=== PATIENT | female | born 1935 | race Caucasian/White ===

== ENCOUNTER 2017-06-06 22:17 | Inpatient (IN) | payer MEDICARE, MEDICAID, SELFPAY ==
[2017-06-06 22:17] VITALS: BP 152/90; PULSE 93; RESP 30; TEMP 37.3; O2SAT 92; BMI 33.6
--- NOTE | 2017-06-06 22:27 | XR_ITS ---
XR chest portable HISTORY: ITS.REASON: SOA ORDERING PHYSICIAN: Pedro Noland MD PATIENT AGE: 82 years COMPARISON: 11/07/2015 FINDINGS: There is mild cardiomegaly without failure. Increased markings are present in the right lower lobe consistent with pneumonia. There are chronic changes in the left lung base. No acute bony anomalies. IMPRESSION: Cardiomegaly with right lower lobe pneumonia
[2017-06-06 22:35] VITALS: BP 146/66; PULSE 85; RESP 24; O2SAT 94
--- NOTE | 2017-06-06 22:36 | HMH.EDCP ---
ED Disposition Clinical Impression: HCAP (healthcare-associated pneumonia), LBBB (left bundle branch block) Anemia Qualifiers: Anemia type: unspecified type Qualified Code(s): D64.9 - Anemia, unspecified Disposition: Admitted As Inpatient Condition on Discharge: Good Referrals: Provider,Referral, [Primary Care Provider] - - Critical Care Critical Care Time: No Attestation: On 06/06/17, the high probability of a clinically significant, sudden or life threatening deterioration of the following system(s) required my full and direct attention, intervention and personal management. The time I documented below is in addition to time spent performing reported procedures but includes the following listed in this critical care notation. Medical Decision Making - Medical Records Medical records reviewed: Yes: I reviewed the patient's medical records. Vital Signs: 06/06/17 22:17 06/06/17 22:35 06/06/17 23:35 Temperature 99.2 F 100.5 F H Temperature Source Oral Rectal Pulse Rate [Right Brachial] 93 H 85 Respiratory Rate 30 H 24 Blood Pressure [Right Arm] 152/90 146/66 Blood Pressure Mean [Right Arm] 110 92 Blood Pressure Source [Right Arm] Automatic Cuff 02 Sat by Pulse Oximetry 92 L 94 L Oxygen Delivery Method Nasal Cannula Nasal Cannula Oxygen Flow Rate (LPM) 3 3 - Lab Data Lab results reviewed: Yes: I reviewed the patient's lab results. Lab Results 06/06/17 22:30: WBC 17.9 H, RBC 2.82 L, Hgb 7.3 L*, Hct 22.6 L*, MCV 80.2 L, MCH 25.7 L, MCHC 32.0, RDW 15.1, Plt Count 274, MPV 9.5, Neut % (Auto) 84.8 H, Lymph % (Auto) 7.9 L, [place] % (Auto) 6.0, Eos % (Auto) 0.9, Baso % (Auto) 0.4, Neut # (Auto) 15.2 H, Lymph # (Auto) 1.4, [place] # (Auto) 1.1 H, Eos # (Auto) 0.2, Baso # (Auto) 0.1 06/06/17 22:30: Sodium 125 L, Potassium 4.2, Chloride 92 L, Carbon Dioxide 21, Anion Gap 16.2 H, BUN 18, Creatinine 0.99, Estimated Creat Clear 57, Estimated GFR 54 L, Est GFR ( Amer) 65, Glucose 187 H, Calcium 8.0 L, Total Bilirubin 0.4, AST 16, ALT 16, Alkaline Phosphatase 49, Troponin I 0.05, Total Protein 6.4, Albumin 3.0 L, Globulin 3.4 H, Albumin/Globulin Ratio 0.9 L 06/06/17 22:30: Lactic Acid 2.3 H 06/06/17 22:32: Influenza Type A Ag Negative, Influenza Type B Ag Negative Result diagrams: 06/06/17 22:30 06/06/17 22:30 Orders (Tests/Meds): ED MEDICATIONS Generic Name Dose Route Start Last Admin Trade Name Freq PRN Reason Stop Dose Admin Sodium Chloride 250 mls @ 25 mls/hr 06/06/17 23:45 Sod Chloride 0.9% 250ml Bag IV 07/06/17 23:44 .Q10H GRACIE Discontinued Medications Generic Name Dose Route Start Last Admin Trade Name Freq PRN Reason Stop Dose Admin Acetaminophen 650 mg 06/06/17 23:56 Acetaminophen 325mg Tab PO 06/06/17 23:57 ONCE ONE ORDERS Category Date Time Status Packed Red Cells [Red Blood Cells] Stat BBK 06/06/17 23:43 Ordered Type and Screen Stat BBK 06/06/17 23:43 Ordered XR chest portable Stat Exams 06/06/17 22:27 Taken Complete Blood Count Auto Diff Stat Lab 06/06/17 22:30 Results Ferritin Stat Lab 06/06/17 23:53 Ordered Folate Stat Lab 06/06/17 23:52 Ordered Hemoglobin and Hematocrit Routine Lab 06/07/17 03:44 Ordered Iron and TIBC Stat Lab 06/06/17 23:52 Ordered UA [Urinalysis and Microscopic] Stat Lab 06/06/17 22:27 Ordered Vitamin B12 Stat Lab 06/06/17 23:52 Ordered Blood Culture Stat Micro 06/06/17 22:30 Received EKG Request [ECG Request by /Heriberto] Stat Y 06/06/17 22:57 Ordered - Radiology Data #1 Image(s): Chest Image Reviewed: Yes I reviewed the patient's radiology image Preliminary Findings: Abnormal (rt lower lobe changes ) - ECG Data Tracing #1 I reviewed this ECG and interpreted as documented below: Arrhythmias present: sinus tach Conduction abnormalities present: LBBB - Physician Consults Physician Consulted: gt Reason -: Admission - Christian Inquiry Pt receiving controlled substa
[2017-06-06 22:53] LABS: Basophils # 0.1 K/mm3 (0-0.2); Basophils % 0.4 % (0.1-2.0); Eosinophils # 0.2 K/mm3 (0.0-0.4); Eosinophils % 0.9 % (0.1-12.0); Lymphocytes # 1.4 K/mm3 (0.7-4.5); Lymphocytes % 7.9 K/mm3 (10-50); Mean Corpuscular Hemoglobin 25.7 pg (27.0-31.2); Mean Corpuscular Volume 80.2 fl (81-99); Mean Platelet Volume 9.5 fl (7.4-10.4); Monocytes # 1.1 K/mm3 (0.1-1.0); Neutrophils # 15.2 K/mm3 (1.8-7.8); Neutrophils % 84.8 % (37.0-80.0); Platelet Count 274 K/mm3 (142-424); Red Blood Count 2.82 M/mm3 (4.20-5.40); Red Cell Distribution Width 15.1 % (11.5-17.5); White Blood Count 17.9 K/mm3 (4.8-10.8)
[2017-06-06 22:59] LABS: Hematocrit 22.6 % (37.0-47.0); Hemoglobin 7.3 g/dL (12.2-16.2)
--- NOTE | 2017-06-06 22:59 | PC.NURSE ---
CRITICAL LAB HGB 7.3 AND HCT 22.[address] GIBBONS
[2017-06-06 23:00] LABS: MANUAL DIFFERENTIAL MANUAL DIFFERENTIAL (MANUAL DIFF)
[2017-06-06 23:08] LABS: Alanine Aminotransferase 16 U/L (12-78); Albumin/Globulin Ratio 0.9 (1.1-1.8); Alkaline Phosphatase 49 U/L (46-116); Anion Gap 16.2 mEq/L (5-15); Aspartate Amino Transferase 16 U/L (15-37); Bilirubin,Total 0.4 mg/dL (0.2-1.0); Blood Urea Nitrogen 18 mg/dL (7-18); Carbon Dioxide 21 mmol/L (21.0-32.0); Chloride 92 mmol/L (98-107); Creatinine Clearance Estimated 57 mL/min (0-300); Creatinine,Serum 0.99 mg/dL (0.55-1.02); Estimated Glomerular Filt Rate 54 ml/min (>60); GFR (African American) 65 ML/MIN (>60); Globulin 3.4 gm/dl (1.3-3.2); Glucose 187 mg/dL (74-106); Potassium 4.2 mmoL/L (3.5-5.1); Sodium 125 mmol/L (136-145); Total Protein,Serum 6.4 gm/dL (6.4-8.2); Troponin I 0.05 ng/ml (0.00-0.06)
[2017-06-06 23:35] VITALS: TEMP 38.1
[2017-06-06 23:45] LABS: Lactic Acid 2.3 mmol/L (0.4-2.0); Reflex Lactic Add Lactic Reflex
[2017-06-07] VITALS (29 sets, daily range): BP systolic 101–159; BP diastolic 41–68; PULSE 57–76; RESP 18–22; TEMP 36.5–37.7; O2SAT 92–99; BMI 33.3; BMI 33.5
--- NOTE | 2017-06-07 00:06 | PC.NURSE ---
DR GIBBONS SPEAKING WITH PHARMACY
[2017-06-07 00:58] LABS: Ferritin 13 ng/mL (8-388)
[2017-06-07 03:35] LABS: Lactic Acid Follow Up (RFLX 1) 2.9 (0.4-2.0)
[2017-06-07 04:38] LABS: Reflex Lactic (2 hrs) Add Lactic Reflex
--- NOTE | 2017-06-07 05:08 | PC.NURSE ---
PT NEW ADMIT TONIGHT. PT ON 3L PER NC OF OXYGEN. NO RESPIRATORY DISTRESS NOTED. PT PALE IN COLOR. CURRENTLY RECEIVING 1ST UNIT OF PACKED RED BLOOD CELLS. TOLERATING BLOOD TRANSFUSION WELL. PT OLD CVA WITH FLACCID LEFT SIDE NOTED. PT WITH NONPRODUCTIVE COUGH.
[2017-06-07 05:27] LABS: Anisocytosis 1+; Eosinophils % 1 % (0-3); Hypochromasia 1+; Lymphocytes % 6 % (10-50); Neutrophils % 93 % (42-76); Platelet Estimate Normal; Poikilocytosis 1+; Total Cells Counted 100
[2017-06-07 05:40] LABS: Lactic Acid Follow up (RFLX 2) 2.3 (0.4-2.0)
--- NOTE | 2017-06-07 06:19 | PC.NURSE ---
1ST UNIT OF PRBCS WITNESS BY TANVI COX RN. UNIT COMPLETED AT 0600. PT TOLERATED WELL.
--- NOTE | 2017-06-07 07:33 | P.CONPHA_ITS ---
[facility] Pharmacy VTE Monitoring - Patient Demographics Admission date: 06/06/17 Report Date: 06/07/17 Time: 07:33 Allergies/Adverse Reactions: lisinopril [LISINOPRIL] Allergy (Mild, Verified 06/06/17 22:26) procaine [PROCAINE] Allergy (Mild, Verified 06/06/17 22:26) Penicillins [PENICILLINS] Allergy (Unknown, Verified 06/06/17 22:26) Height: 1.57 m Weight: 82.752 kg Patient Problems: Current Active Problems HCAP (healthcare-associated pneumonia) (Acute) LBBB (left bundle branch block) (Acute) Anemia (Acute) - VTE Risk Labs: VTE Related Lab Results Hgb 7.3 g/dL (12.2-16.2) L* 06/06/17 22:30 Hct 22.6 % (37.0-47.0) L* 06/06/17 22:30 Plt Count 274 K/mm3 (142-424) 06/06/17 22:30 BUN 18 mg/dL (7-18) 06/06/17 22:30 Creatinine 0.99 mg/dL (0.55-1.02) 06/06/17 22:30 Estimated Creat Clear 57 mL/min (0-300) 06/06/17 22:30 Was VTE Risk Assessment Performed: Yes VTE Score: 6 VTE Risk Level: Moderate Risk Clinical Trial Participant: No - Prophylaxis VTE Prophylaxis Ordered?: Yes Types of VTE Prophylaxis: TEDS Knee High Location of Applied Device: Bilateral Lower Extremeties
--- NOTE | 2017-06-07 08:28 | PC.NURSE ---
0825 - Blood infusion completed. IV NS @ 50ml/hr resumed post infusion via (L) hand IV site. No s/s of infection/infiltration @ insertion site.
--- NOTE | 2017-06-07 08:44 | HMH.HP ---
*Admission Date: 06/06/17 <Luz Pham 06/07/17 09:26> *Chief complaint: SOB <Luz Pham 06/07/17 09:26> *History of present illness: Ms Helms is an 82 year old female resident of [facility] with a history of stroke with left hemiplegia, HTN, OA, CAD, Atrial fib, hypothyroidism, aortic stenosis, hyponatremia, neurogenic bladder pseudoaneurysm, and renal insufficiency who presented to the ER with a 5 day history of a worsening cough and SOB. She describes not being able to eat as well. With evaluation in the ER she was found to have pneumonia and low H&H. She is now receiving PRBC's.She states she is feeling better; She denies SOB. <Luz Pham 06/07/17 09:26> [facility] History - *Social History Alcohol Intake: never <Luz Pham 06/07/17 09:26> - Psychiatric History Expresses thoughts of harming self/others: None <Luz Pham 06/07/17 09:26> Suicide Plan Description: No Plan <Luz Pham 06/07/17 09:26> Review of Systems - Constitutional Reports body ache(s), Reports weakness, Denies headache(s) <Luz Pham 06/07/17 09:26> - ENT Denies ear pain, Denies sore throat <Luz Pham 06/07/17 09:26> - *Cardiovascular Reports shortness of breath, Denies chest pain, Denies leg swelling <Luz hPam 06/07/17 09:26> - *Respiratory Reports chest congestion, Reports cough, Reports shortness of breath <Luz Pham 06/07/17 09:26> - *Gastrointestinal Reports constipation, Denies abdominal pain <Luz Pham 06/07/17 09:26> - *Genitourinary Reports urinary incontinence <Luz Pham 06/07/17 09:26> - *Musculoskeletal Reports muscle weakness <Luz Pham 06/07/17 09:26> Comments: does not walk; gets [facility] in a [facility] <Luz Pham 06/07/17 09:26> - *Neurologic Reports weakness, Denies seizure-like activity <Luz Pham - 06/07/17 09:26> Meds Home Medications Medication Instructions Recorded Confirmed Type Acetaminophen [Acetaminophen Extra 500 mg PO Q4HP PRN 06/07/17 06/07/17 History Strength] Aspirin [Aspirin 81mg chewable 81 mg PO DAILY 06/07/17 06/07/17 History tab] Buspirone HCl [Buspar 10mg tablet] 15 mg PO TID 06/07/17 06/07/17 History Docusate Sodium [Colace 250mg 250 mg PO DAILY 06/07/17 06/07/17 History capsule] Escitalopram Oxalate [Lexapro] 20 mg PO HS 06/07/17 06/07/17 History Fenofibrate Nanocrystallized 48 mg PO DAILY 06/07/17 06/07/17 History [Tricor] Hydrocod/Acet 5/325 mg [[place] 5 mg PO HS 06/07/17 06/07/17 History 5/325mg tablet] Ipratropium/Albuterol Sulfate 3 ml IH TIDP PRN 06/07/17 06/07/17 History [Albut-Ipratropium 2.5mg-0.5mg/3 ml] Levothyroxine Sodium [Synthroid 50 mg PO DAILY 06/07/17 06/07/17 History 50mcg (0.05mg) tab] Loperamide HCl [Imodium 2 mg 2 mg PO Q3HP PRN 06/07/17 06/07/17 History capsule] Loratadine [Claritin 10mg Tablet] 10 mg PO DAILY 06/07/17 06/07/17 History Metoprolol Tartrate [Lopressor 25 mg PO BID 06/07/17 06/07/17 History 25mg tablet] Montelukast Sodium [Singulair 10mg 10 mg PO PM 06/07/17 06/07/17 History tablet] Multivitamin [One Daily] 1 each PO DAILY 06/07/17 06/07/17 History Nitroglycerin [Nitrostat 0.4mg SL 0.4 mg SL Q5MINP PRN 06/07/17 06/07/17 History Tablet] Oxybutynin Chloride [Oxybutynin 5 mg PO DAILY 06/07/17 06/07/17 History Chloride ER] Polyethylene Glycol 3350 [Miralax 17 gm PO HS 06/07/17 06/07/17 History 17gm Packet] Pravastatin Sodium [Pravachol 20mg 20 mg PO DAILY 06/07/17 06/07/17 History Tablet] Promethazine HCl [Phenergan 25mg 25 mg PO Q4HP PRN 06/07/17 06/07/17 History tab] Rivaroxaban [Xarelto] 20 mg PO DAILY 06/07/17 06/07/17 History Simethicone [Gas-X] 125 mg PO QIDP PRN 06/07/17 06/07/17 History Tamsulosin HCl [Flomax] 0.4 mg PO DAILY 06/07/17 06/07/17 History guaiFENesin [Robitussin 200mg/10mL 200 mg PO Q4HP PRN 06/07/17 06/07/17 History Syru
--- NOTE | 2017-06-07 08:48 | P.HP_ITS ---
*Admission Date: 06/06/17 <Luz Pham 06/07/17 09:26> *Chief complaint: SOB <Luz Pham 06/07/17 09:26> *History of present illness: Ms Helms is an 82 year old female resident of [facility] with a history of stroke with left hemiplegia, HTN, OA, CAD, Atrial fib, hypothyroidism , aortic stenosis, hyponatremia, neurogenic bladder pseudoaneurysm, and renal insufficiency who presented to the ER with a 5 day history of a worsening cough and SOB. She describes not being able to eat as well. With evaluation in the ER she was found to have pneumonia and low H&H. She is now receiving PRBC's.She states she is feeling better; She denies SOB. <Luz Pham 06/07/17 09:26> [facility] History - *Social History Alcohol Intake: never <Luz Pham 06/07/17 09:26> - Psychiatric History Expresses thoughts of harming self/others: None <Luz Pham 06/07/17 09: 26> Suicide Plan Description: No Plan <Luz Pham 06/07/17 09:26> Review of Systems - Constitutional Reports body ache(s), Reports weakness, Denies headache(s) <Luz Pham 09:26> - ENT Denies ear pain, Denies sore throat <Luz Pham 06/07/17 09:26> - *Cardiovascular Reports shortness of breath, Denies chest pain, Denies leg swelling <Luz Pham 06/07/17 09:26> - *Respiratory Reports chest congestion, Reports cough, Reports shortness of breath <Luz Pham 06/07/17 09:26> - *Gastrointestinal Reports constipation, Denies abdominal pain <Luz Pham 06/07/17 09:26> - *Genitourinary Reports urinary incontinence <Luz Pham 06/07/17 09:26> - *Musculoskeletal Reports muscle weakness <Luz Pham 06/07/17 09:26> Comments: does not walk; gets up in a wheelchair on some days at the [facility] <Luz Pham 06/07/17 09:26> - *Neurologic Reports weakness, Denies seizure-like activity <Luz Pham - 06/07/17 09:26 > Meds Home Medications Medication Instructions Recorded Confirmed Type Acetaminophen [Acetaminophen Extra 500 mg PO Q4HP PRN 06/07/17 06/07/17 History Strength] Aspirin [Aspirin 81mg chewable 81 mg PO DAILY 06/07/17 06/07/17 History tab] Buspirone HCl [Buspar 10mg tablet] 15 mg PO TID 06/07/17 06/07/17 History Docusate Sodium [Colace 250mg 250 mg PO DAILY 06/07/17 06/07/17 History capsule] Escitalopram Oxalate [Lexapro] 20 mg PO HS 06/07/17 06/07/17 History Fenofibrate Nanocrystallized 48 mg PO DAILY 06/07/17 06/07/17 History [Tricor] Hydrocod/Acet 5/325 mg [[place] 5 mg PO HS 06/07/17 06/07/17 History 5/325mg tablet] Ipratropium/Albuterol Sulfate 3 ml IH TIDP PRN 06/07/17 06/07/17 History [Albut-Ipratropium 2.5mg-0.5mg/3 ml] Levothyroxine Sodium [Synthroid 50 mg PO DAILY 06/07/17 06/07/17 History 50mcg (0.05mg) tab] Loperamide HCl [Imodium 2 mg 2 mg PO Q3HP PRN 06/07/17 06/07/17 History capsule] Loratadine [Claritin 10mg Tablet] 10 mg PO DAILY 06/07/17 06/07/17 History Metoprolol Tartrate [Lopressor 25 mg PO BID 06/07/17 06/07/17 History 25mg tablet] Montelukast Sodium [Singulair 10mg 10 mg PO PM 06/07/17 06/07/17 History tablet] Multivitamin [One Daily] 1 each PO DAILY 06/07/17 06/07/17 History Nitroglycerin [Nitrostat 0.4mg SL 0.4 mg SL Q5MINP PRN 06/07/17 06/07/17 History Tablet] Oxybutynin Chloride [Oxybutynin 5 mg PO DAILY 06/07/17 06/07/17 History Chloride ER]
[2017-06-07 10:01] LABS: Hematocrit 26.3 % (37.0-47.0)
[2017-06-07 10:09] LABS: Hemoglobin 8.6 g/dL (12.2-16.2)
--- NOTE | 2017-06-07 11:15 | SW/DCPLANNER ---
Spoke with Analia from [facility] and she has stated that this patient is [facility] level of care and they will accept her back once ready for discharge.
[2017-06-07 11:20] LABS: Thyroid Stimulating Hormone 2.29 uIU/ml (0.358-3.740)
--- NOTE | 2017-06-07 14:45 | PC.NURSE ---
Interdisciplinary team meeting with case management, dietary, nursing, and infection control. Discussed plan of care and discharge plans.
[2017-06-07 15:35] LABS: Occult Blood,Stool Positive (Negative)
--- NOTE | 2017-06-07 15:36 | PC.NURSE ---
1500 - Pt returned to room 209 via bed accompanied by OR staff.
[2017-06-08] VITALS (10 sets, daily range): BP systolic 142–181; BP diastolic 61–79; PULSE 69–75; RESP 20–24; TEMP 36.6–37.2; O2SAT 94–99
--- NOTE | 2017-06-08 03:27 | PC.NURSE ---
PATIENT RESTING QUIETLY MOST OF SHIFT. NO C/O PAIN OR DISCOMFORT, NO S/S OF DISTRESS NOTED. SCATTERED WHEEZES THROUGHOUT LUNG BILATERALLY. IV DRESSING CHANGED AND SECURE. KERLEX PLACED IN PALM OF HAND AND WRAPPED WITH KOBAN DUE TO LEFT EXTERMITY BEING FLACCID AND IV PROTRUDING PAST KNUCKLES. PATIENT HAS REMAINED AFEBRILE WITH O2 SATS IN MID 90S. NO ACUTE CHANGES. PLEASANT AFFECT. VITAL SIGNS STABLE, WILL CONTINUE TO MONITOR.
--- NOTE | 2017-06-08 07:20 | PC.NURSE ---
Received report from Sarah Hoang RN
[2017-06-08 07:22] LABS: Basophils % 0.2 % (0.1-2.0); Eosinophils # 0.1 K/mm3 (0.0-0.4); Eosinophils % 0.6 % (0.1-12.0); Lymphocytes % 11.3 K/mm3 (10-50); Mean Corpuscular HGB Conc 32.5 g/dL (31.8-35.4); Mean Corpuscular Hemoglobin 26.4 pg (27.0-31.2); Mean Corpuscular Volume 81.3 fl (81-99); Mean Platelet Volume 9.3 fl (7.4-10.4); Monocytes # 0.7 K/mm3 (0.1-1.0); Monocytes % 7.6 % (1.7-9.3); Neutrophils # 7.1 K/mm3 (1.8-7.8); Neutrophils % 80.2 % (37.0-80.0); Platelet Count 180 K/mm3 (142-424); Red Blood Count 2.92 M/mm3 (4.20-5.40); Red Cell Distribution Width 14.9 % (11.5-17.5); White Blood Count 8.9 K/mm3 (4.8-10.8)
[2017-06-08 07:27] LABS: Anion Gap 10.7 mEq/L (5-15); Blood Urea Nitrogen 15 mg/dL (7-18); Carbon Dioxide 23 mmol/L (21.0-32.0); Chloride 100 mmol/L (98-107); Creatinine Clearance Estimated 57 mL/min (0-300); Creatinine,Serum 0.88 mg/dL (0.55-1.02); Estimated Glomerular Filt Rate 62 ml/min (>60); GFR (African American) 74 ML/MIN (>60); Glucose 89 mg/dL (74-106); Potassium 4.7 mmoL/L (3.5-5.1); Sodium 129 mmol/L (136-145)
[2017-06-08 07:35] LABS: Hemoglobin 7.7 g/dL (12.2-16.2)
[2017-06-08 07:36] LABS: Hematocrit 23.8 % (37.0-47.0)
--- NOTE | 2017-06-08 07:52 | PC.NURSE ---
0750: Received critical Hgb results from lab. Notified Dr Felipe in person (Hgb 7.7 / Hct 23.8) Positive occult blood result from 06/07/16.
[2017-06-08 08:24] LABS: Iron 30 ug/dL (27-139); UIBC 349 ug/dL (118-369)
--- NOTE | 2017-06-08 10:21 | HMH.ACPN ---
Internal Medicine - PN: Subj *Date: 06/08/17 *Time: 18:31 Interval history: Pt states she is feeling slightly better today. Denies any pain. States she was able to sleep and eat. SOA is still present and she is still coughing. Exam Vital signs and Labs for Last 24 Hours: Temp Pulse Resp BP Pulse Ox 97.9 F 70 20 168/70 98 06/08/17 08:00 06/08/17 09:41 06/08/17 08:00 06/08/17 08:00 06/08/17 08:00 Laboratory Results - last 24 hr 06/07/17 09:45: Blood Type Confirm B Positive 06/07/17 14:47: Stool Occult Blood Positive A 06/07/17 : TSH 2.29 06/08/17 06:20: WBC 8.9 D, RBC 2.92 L, Hgb 7.7 L*, Hct 23.8 L*, MCV 81.3, MCH 26.4 L, MCHC 32.5, RDW 14.9, Plt Count 180 D, MPV 9.3, Neut % (Auto) 80.2 H, Lymph % (Auto) 11.3, [place] % (Auto) 7.6, Eos % (Auto) 0.6, Baso % (Auto) 0.2, Neut # (Auto) 7.1, Lymph # (Auto) 1.0, [place] # (Auto) 0.7, Eos # (Auto) 0.1, Baso # (Auto) 0.0 06/08/17 06:20: Sodium 129 L, Potassium 4.7, Chloride 100, Carbon Dioxide 23, Anion Gap 10.7, BUN 15, Creatinine 0.88, Estimated Creat Clear 57, Estimated GFR 62, Est GFR ( Amer) 74, Glucose 89 I & O for Last 24 hours: Intake & Output 06/05/17 06/06/17 06/07/17 06/08/17 11:59 11:59 11:59 11:59 Intake Total 743 / 743 6917 / 3977 Balance 743 / 743 7647 / 2310 - Constitutional no acute distress - *Routine Respiratory Exam Present: rhonchi (bilaterally, worse on the right) - *Routine Cardiovascular Exam Present: RRR - *Routine Abdominal Exam Present: soft, normoactive bowel sounds. Absent: tenderness - *Routine Extremities Exam Absent: edema Assessment and Plan (1) HCAP (healthcare-associated pneumonia) Current visit: Yes Status: Acute Category: Medical Code(s): J18.9 - Pneumonia, unspecified organism (2) History of CVA with residual deficit Current visit: Yes Status: Acute Category: Medical Code(s): I69.30 - Unspecified sequelae of cerebral infarction (3) Hyponatremia Current visit: Yes Status: Acute Category: Medical Code(s): E87.1 - Hypo-osmolality and hyponatremia (4) LBBB (left bundle branch block) Current visit: Yes Status: Acute Category: Medical Code(s): I44.7 - Left bundle-branch block, unspecified (5) Microcytic anemia Current visit: Yes Status: Acute Category: Medical Code(s): D50.9 - Iron deficiency anemia, unspecified (6) A-fib Current visit: Yes Status: Chronic Category: Medical Code(s): I48.91 - Unspecified atrial fibrillation (7) CAD (coronary artery disease) Current visit: Yes Status: Chronic Category: Medical Code(s): I25.10 - Atherosclerotic heart disease of [place] coronary artery without angina pectoris (8) HTN (hypertension) Current visit: Yes Status: Chronic Category: Medical Code(s): I10 - Essential (primary) hypertension (9) Hypothyroidism Current visit: Yes Status: Chronic Category: Medical Code(s): E03.9 - Hypothyroidism, unspecified (10) Osteoarthritis Current visit: Yes Status: Chronic Category: Medical Code(s): M19.90 - Unspecified osteoarthritis, unspecified site (11) Renal insufficiency Current visit: Yes Status: Chronic Category: Medical Code(s): N28.9 - Disorder of kidney and ureter, unspecified (12) Blood in stool Current visit: Yes Status: Acute Category: Medical Code(s): K92.1 - Melena - Assessment and plan all Dx Assessment and Plan for all problems:: Will continue abx for pneumonia. Patient's H&H has decreased again and her stool is positive for blood. Will discuss with Dr. Felipe. Will likely need a surgical consult and more blood. Patient seen and examined. SHe looks better. She is hemodynamically stable so will hold on additional blood tx for now. She denies hx of PUD or hernias. She has never had a colonoscopy and states she does not want one. Will get surgical consult for tomorrow and make NPO after MN for possible EGD. Start Protonix. Follow H&H.
--- NOTE | 2017-06-08 10:25 | P.PN_ITS ---
Internal Medicine - PN: Subj *Date: 06/08/17 *Time: 18:31 Interval history: Pt states she is feeling slightly better today. Denies any pain. States she was able to sleep and eat. SOA is still present and she is still coughing. Exam Vital signs and Labs for Last 24 Hours: Temp Pulse Resp BP Pulse Ox 97.9 F 70 20 168/70 98 06/08/17 08:00 06/08/17 09:41 06/08/17 08:00 06/08/17 08:00 06/08/17 08:00 Laboratory Results - last 24 hr 06/07/17 09:45: Blood Type Confirm B Positive 06/07/17 14:47: Stool Occult Blood Positive A 06/07/17 : TSH 2.29 06/08/17 06:20: WBC 8.9 D, RBC 2.92 L, Hgb 7.7 L*, Hct 23.8 L*, MCV 81.3, MCH 26.4 L, MCHC 32.5, RDW 14.9, Plt Count 180 D, MPV 9.3, Neut % (Auto) 80.2 H, Lymph % (Auto) 11.3, [place] % (Auto) 7.6, Eos % (Auto) 0.6, Baso % (Auto) 0.2, Neut # (Auto) 7.1, Lymph # (Auto) 1.0, [place] # (Auto) 0.7, Eos # (Auto) 0.1, Baso # (Auto) 0.0 06/08/17 06:20: Sodium 129 L, Potassium 4.7, Chloride 100, Carbon Dioxide 23, Anion Gap 10.7, BUN 15, Creatinine 0.88, Estimated Creat Clear 57, Estimated GFR 62, Est GFR ( Amer) 74, Glucose 89 I & O for Last 24 hours: Intake & Output 06/05/17 06/06/17 06/07/17 06/08/17 11:59 11:59 11:59 11:59 Intake Total 743 / 743 8377 / 3977 Balance 743 / 743 6737 / 2364 - Constitutional no acute distress - *Routine Respiratory Exam Present: rhonchi (bilaterally, worse on the right) - *Routine Cardiovascular Exam Present: RRR - *Routine Abdominal Exam Present: soft, normoactive bowel sounds. Absent: tenderness - *Routine Extremities Exam Absent: edema Assessment and Plan (1) HCAP (healthcare-associated pneumonia) Current visit: Yes Status: Acute Category: Medical Code(s): J18.9 - Pneumonia, unspecified organism (2) History of CVA with residual deficit Current visit: Yes Status: Acute Category: Medical Code(s): I69.30 - Unspecified sequelae of cerebral infarction (3) Hyponatremia Current visit: Yes Status: Acute Category: Medical Code(s): E87.1 - Hypo- osmolality and hyponatremia (4) LBBB (left bundle branch block) Current visit: Yes Status: Acute Category: Medical Code(s): I44.7 - Left bundle-branch block, unspecified (5) Microcytic anemia Current visit: Yes Status: Acute Category: Medical Code(s): D50.9 - Iron deficiency anemia, unspecified (6) A-fib Current visit: Yes Status: Chronic Category: Medical Code(s): I48.91 - Unspecified atrial fibrillation (7) CAD (coronary artery disease) Current visit: Yes Status: Chronic Category: Medical Code(s): I25.10 - Atherosclerotic heart disease of [place] coronary artery without angina pectoris (8) HTN (hypertension) Current visit: Yes Status: Chronic Category: Medical Code(s): I10 - Essential (primary) hypertension (9) Hypothyroidism Current visit: Yes Status: Chronic Category: Medical Code(s): E03.9 - Hypothyroidism, unspecified (10) Osteoarthritis Current visit: Yes Status: Chronic Category: Medical Code(s): M19.90 - Unspecified osteoarthritis, unspecified site (11) Renal insufficiency Current visit: Yes Status: Chronic Category: Medical Code(s): N28.9 - Disorder of kidney and ureter, unspecified (12) Blood in stool Current visit: Yes Status: Acute Category: Medical Code(s): K92.1 - Melena - Assessment and plan all Dx Assessment and Plan for all problems:: Will con
--- NOTE | 2017-06-08 17:22 | PC.NURSE ---
PT HAS BEEN A&Ox3 IN NAD THIS SHIFT. DENIES PAIN. VSS. AFEBRILE. HEART RATE REG. LUNGS /C RHONCHI NOTED TO (L) LUNG CARR. PT INCONTINENT OF BOWEL/BLADDER. IV INFUSING /S DIFFICULTY VIA (L) HAND. O2 VIA NC @ 2LPM. WILL CONTINUE TO MONITOR.
--- NOTE | 2017-06-08 19:21 | PC.NURSE ---
REPORT GIVEN TO JADE SMITH RN
[2017-06-09] VITALS (37 sets, daily range): BP systolic 101–189; BP diastolic 43–84; PULSE 60–91; RESP 16–24; TEMP 36.3–36.9; O2SAT 91–99
--- NOTE | 2017-06-09 03:33 | PC.NURSE ---
PT HAS RESTED WELL THIS SHIFT. A&OX3. VSS. BS ACTIVE IN ALL 4 QAUDS, PT CONTINUES TO HAVE BLACK TARRY STOOLS. RHONCHI NOTED DURING AUSCULTATION, DRY HACKY COUGH NOTED. TOLERATING 2L NC WELL. FLACCID TO L SIDE (PT BASELINE). NO ACUTE DISTRESS NOTED. WILL CONTINUE TO MONITOR.
[2017-06-09 06:39] LABS: Basophils % 0.4 % (0.1-2.0); Eosinophils # 0.1 K/mm3 (0.0-0.4); Lymphocytes # 0.9 K/mm3 (0.7-4.5); Lymphocytes % 12.3 K/mm3 (10-50); Mean Corpuscular HGB Conc 32.3 g/dL (31.8-35.4); Mean Corpuscular Volume 80.5 fl (81-99); Mean Platelet Volume 9.3 fl (7.4-10.4); Monocytes # 0.6 K/mm3 (0.1-1.0); Monocytes % 8.4 % (1.7-9.3); Neutrophils # 5.8 K/mm3 (1.8-7.8); Neutrophils % 77.8 % (37.0-80.0); Platelet Count 181 K/mm3 (142-424); Red Blood Count 2.76 M/mm3 (4.20-5.40); White Blood Count 7.5 K/mm3 (4.8-10.8)
[2017-06-09 06:55] LABS: Alanine Aminotransferase 14 U/L (12-78); Albumin Level 2.4 gm/dL (3.4-5.0); Albumin/Globulin Ratio 0.7 (1.1-1.8); Alkaline Phosphatase 44 U/L (46-116); Anion Gap 11.1 mEq/L (5-15); Aspartate Amino Transferase 16 U/L (15-37); Bilirubin,Total 0.4 mg/dL (0.2-1.0); Blood Urea Nitrogen 16 mg/dL (7-18); Calcium 7.8 mg/dL (8.5-10.1); Carbon Dioxide 22 mmol/L (21.0-32.0); Chloride 98 mmol/L (98-107); Creatinine Clearance Estimated 57 mL/min (0-300); Creatinine,Serum 0.86 mg/dL (0.55-1.02); Estimated Glomerular Filt Rate 63 ml/min (>60); GFR (African American) 76 ML/MIN (>60); Globulin 3.3 gm/dl (1.3-3.2); Glucose 95 mg/dL (74-106); Potassium 5.1 mmoL/L (3.5-5.1); Sodium 126 mmol/L (136-145); Total Protein,Serum 5.7 gm/dL (6.4-8.2)
[2017-06-09 07:06] LABS: Hematocrit 22.2 % (37.0-47.0); Hemoglobin 7.2 g/dL (12.2-16.2)
--- NOTE | 2017-06-09 08:03 | PC.NURSE ---
REPORT GIVEN TO Heber HE RN
--- NOTE | 2017-06-09 08:26 | HMH.ACPN ---
Internal Medicine - PN: Subj *Date: 06/09/17 *Time: 08:26 Interval history: Slept well. No new complaints. Denies GI symptoms. Exam Vital signs and Labs for Last 24 Hours: Temp Pulse Resp BP Pulse Ox 98.5 F 71 24 189/83 97 06/09/17 04:00 06/09/17 06:21 06/09/17 04:00 06/09/17 04:00 06/09/17 06:21 Laboratory Results - last 24 hr 06/07/17 00:15: Crossmatch ([facility]) See Detail 06/09/17 06:15: WBC 7.5, RBC 2.76 L, Hgb 7.2 L*, Hct 22.2 L*, MCV 80.5 L, MCH 26.0 L, MCHC 32.3, RDW 15.0, Plt Count 181, MPV 9.3, Neut % (Auto) 77.8, Lymph % (Auto) 12.3, [place] % (Auto) 8.4, Eos % (Auto) 1.0, Baso % (Auto) 0.4, Neut # (Auto) 5.8, Lymph # (Auto) 0.9, [place] # (Auto) 0.6, Eos # (Auto) 0.1, Baso # (Auto) 0.0 06/09/17 06:15: Sodium 126 L, Potassium 5.1, Chloride 98, Carbon Dioxide 22, Anion Gap 11.1, BUN 16, Creatinine 0.86, Estimated Creat Clear 57, Estimated GFR 63, Est GFR ( Amer) 76, Glucose 95, Calcium 7.8 L, Total Bilirubin 0.4, AST 16, ALT 14, Alkaline Phosphatase 44 L, Total Protein 5.7 L, Albumin 2.4 L, Globulin 3.3 H, Albumin/Globulin Ratio 0.7 L I & O for Last 24 hours: Intake & Output 06/06/17 06/07/17 06/08/17 06/09/17 11:59 11:59 11:59 11:59 Intake Total 743 / 743 4077 / 4077 2705 / 2705 Balance 743 / 743 4077 / 4077 2705 / 2705 Weight 182 lb 7 oz 182 lb 6.92 oz - Constitutional no acute distress - *Routine Respiratory Exam Present: diminished air movement (in bases). Absent: wheezes - *Routine Cardiovascular Exam Present: RRR - *Routine Abdominal Exam Present: soft. Absent: tenderness, distended - *Routine Skin Exam Comments: pale Assessment and Plan (1) HCAP (healthcare-associated pneumonia) Current visit: Yes Status: Acute Category: Medical Code(s): J18.9 - Pneumonia, unspecified organism (2) History of CVA with residual deficit Current visit: Yes Status: Acute Category: Medical Code(s): I69.30 - Unspecified sequelae of cerebral infarction (3) Hyponatremia Current visit: Yes Status: Acute Category: Medical Code(s): E87.1 - Hypo-osmolality and hyponatremia (4) LBBB (left bundle branch block) Current visit: Yes Status: Acute Category: Medical Code(s): I44.7 - Left bundle-branch block, unspecified (5) Microcytic anemia Current visit: Yes Status: Acute Category: Medical Code(s): D50.9 - Iron deficiency anemia, unspecified (6) A-fib Current visit: Yes Status: Chronic Category: Medical Code(s): I48.91 - Unspecified atrial fibrillation (7) CAD (coronary artery disease) Current visit: Yes Status: Chronic Category: Medical Code(s): I25.10 - Atherosclerotic heart disease of [place] coronary artery without angina pectoris (8) HTN (hypertension) Current visit: Yes Status: Chronic Category: Medical Code(s): I10 - Essential (primary) hypertension (9) Hypothyroidism Current visit: Yes Status: Chronic Category: Medical Code(s): E03.9 - Hypothyroidism, unspecified (10) Osteoarthritis Current visit: Yes Status: Chronic Category: Medical Code(s): M19.90 - Unspecified osteoarthritis, unspecified site (11) Renal insufficiency Current visit: Yes Status: Chronic Category: Medical Code(s): N28.9 - Disorder of kidney and ureter, unspecified (12) Blood in stool Current visit: Yes Status: Acute Category: Medical Code(s): K92.1 - Melena - Assessment and plan all Dx Assessment and Plan for all problems:: H&H has dropped further. Will tranfuse 2 units and get surgical consult. Continue antibiotics.
--- NOTE | 2017-06-09 08:30 | P.PN_ITS ---
Internal Medicine - PN: Subj *Date: 06/09/17 *Time: 08:26 Interval history: Slept well. No new complaints. Denies GI symptoms. Exam Vital signs and Labs for Last 24 Hours: Temp Pulse Resp BP Pulse Ox 98.5 F 71 24 189/83 97 06/09/17 04:00 06/09/17 06:21 06/09/17 04:00 06/09/17 04:00 06/09/17 06:21 Laboratory Results - last 24 hr 06/07/17 00:15: Crossmatch ([facility]) See Detail 06/09/17 06:15: WBC 7.5, RBC 2.76 L, Hgb 7.2 L*, Hct 22.2 L*, MCV 80.5 L, MCH 26.0 L, MCHC 32.3, RDW 15.0, Plt Count 181, MPV 9.3, Neut % (Auto) 77.8, Lymph % (Auto) 12.3, [place] % (Auto) 8.4, Eos % (Auto) 1.0, Baso % (Auto) 0.4, Neut # ( Auto) 5.8, Lymph # (Auto) 0.9, [place] # (Auto) 0.6, Eos # (Auto) 0.1, Baso # (Auto ) 0.0 06/09/17 06:15: Sodium 126 L, Potassium 5.1, Chloride 98, Carbon Dioxide 22, Anion Gap 11.1, BUN 16, Creatinine 0.86, Estimated Creat Clear 57, Estimated GFR 63, Est GFR ( Amer) 76, Glucose 95, Calcium 7.8 L, Total Bilirubin 0.4, AST 16, ALT 14, Alkaline Phosphatase 44 L, Total Protein 5.7 L, Albumin 2.4 L, Globulin 3.3 H, Albumin/Globulin Ratio 0.7 L I & O for Last 24 hours: Intake & Output 06/06/17 06/07/17 06/08/17 06/09/17 11:59 11:59 11:59 11:59 Intake Total 743 / 743 4077 / 4077 2705 / 2705 Balance 743 / 743 4077 / 4077 2705 / 2705 Weight 182 lb 7 oz 182 lb 6.92 oz - Constitutional no acute distress - *Routine Respiratory Exam Present: diminished air movement (in bases). Absent: wheezes - *Routine Cardiovascular Exam Present: RRR - *Routine Abdominal Exam Present: soft. Absent: tenderness, distended - *Routine Skin Exam Comments: pale Assessment and Plan (1) HCAP (healthcare-associated pneumonia) Current visit: Yes Status: Acute Category: Medical Code(s): J18.9 - Pneumonia, unspecified organism (2) History of CVA with residual deficit Current visit: Yes Status: Acute Category: Medical Code(s): I69.30 - Unspecified sequelae of cerebral infarction (3) Hyponatremia Current visit: Yes Status: Acute Category: Medical Code(s): E87.1 - Hypo- osmolality and hyponatremia (4) LBBB (left bundle branch block) Current visit: Yes Status: Acute Category: Medical Code(s): I44.7 - Left bundle-branch block, unspecified (5) Microcytic anemia Current visit: Yes Status: Acute Category: Medical Code(s): D50.9 - Iron deficiency anemia, unspecified (6) A-fib Current visit: Yes Status: Chronic Category: Medical Code(s): I48.91 - Unspecified atrial fibrillation (7) CAD (coronary artery disease) Current visit: Yes Status: Chronic Category: Medical Code(s): I25.10 - Atherosclerotic heart disease of [place] coronary artery without angina pectoris (8) HTN (hypertension) Current visit: Yes Status: Chronic Category: Medical Code(s): I10 - Essential (primary) hypertension (9) Hypothyroidism Current visit: Yes Status: Chronic Category: Medical Code(s): E03.9 - Hypothyroidism, unspecified (10) Osteoarthritis Current visit: Yes Status: Chronic Category: Medical Code(s): M19.90 - Unspecified osteoarthritis, unspecified site (11) Renal insufficiency Current visit: Yes Status: Chronic Category: Medical Code(s): N28.9 - Disorder of kidney and ureter, unspecified (12) Blood in stool Current visit: Yes Status: Acute Category: Medical Code(s): K92.1 - Melena - Assessment and plan all Dx Assessme
--- NOTE | 2017-06-09 09:06 | HMH.GSCON ---
*Admission Date: 06/06/17 *Chief complaint: Anemia *History of present illness: Patient is an 82-year-old [facility] resident with a history of atrial fibrillation, aortic stenosis, prior CVA in 2010, myocardial infarction in 2016, on Xarelto. She was admitted a couple of days ago. She was found to be anemic. She has had progressive decrease in her hemoglobin despite some transfusion. She does have Hemoccult positive stool. According to the staff she did have a black stool this morning. Surgery was consulted. Review of Systems - Review of Systems Review of systems:: unable to obtain - *Neurologic Reports weakness, Denies headache(s), Denies seizure-like activity [facility] History I have reviewed the patient's past medical history: Yes Medical History: Reports:: Arrhythmia, Atrial Fibrillation, Congestive Heart Failure, Chronic Obstructive Pulmonary Disease (COPD), Coronary Artery Disease, Cerebrovascular Accident, Hypertension, Myocardial Infarction, Renal Disease, Valvular Heart Disease Other Medical History: Reports: Hypothyroidism - *Social History Alcohol Intake: never - Psychiatric History Expresses thoughts of harming self/others: None Suicide Plan Description: No Plan Meds Home Medications Medication Instructions Recorded Confirmed Type Acetaminophen [Acetaminophen Extra 500 mg PO Q4HP PRN 06/07/17 06/07/17 History Strength] Aspirin [Aspirin 81mg chewable 81 mg PO DAILY 06/07/17 06/07/17 History tab] Buspirone HCl [Buspar 10mg tablet] 15 mg PO TID 06/07/17 06/07/17 History Docusate Sodium [Colace 250mg 250 mg PO DAILY 06/07/17 06/07/17 History capsule] Escitalopram Oxalate [Lexapro] 20 mg PO HS 06/07/17 06/07/17 History Fenofibrate Nanocrystallized 48 mg PO DAILY 06/07/17 06/07/17 History [Tricor] Hydrocod/Acet 5/325 mg [[place] 5 mg PO HS 06/07/17 06/07/17 History 5/325mg tablet] Ipratropium/Albuterol Sulfate 3 ml IH TIDP PRN 06/07/17 06/07/17 History [Albut-Ipratropium 2.5mg-0.5mg/3 ml] Levothyroxine Sodium [Synthroid 50 mg PO DAILY 06/07/17 06/07/17 History 50mcg (0.05mg) tab] Loperamide HCl [Imodium 2 mg 2 mg PO Q3HP PRN 06/07/17 06/07/17 History capsule] Loratadine [Claritin 10mg Tablet] 10 mg PO DAILY 06/07/17 06/07/17 History Metoprolol Tartrate [Lopressor 25 mg PO BID 06/07/17 06/07/17 History 25mg tablet] Montelukast Sodium [Singulair 10mg 10 mg PO PM 06/07/17 06/07/17 History tablet] Multivitamin [One Daily] 1 each PO DAILY 06/07/17 06/07/17 History Nitroglycerin [Nitrostat 0.4mg SL 0.4 mg SL Q5MINP PRN 06/07/17 06/07/17 History Tablet] Oxybutynin Chloride [Oxybutynin 5 mg PO DAILY 06/07/17 06/07/17 History Chloride ER] Polyethylene Glycol 3350 [Miralax 17 gm PO HS 06/07/17 06/07/17 History 17gm Packet] Pravastatin Sodium [Pravachol 20mg 20 mg PO DAILY 06/07/17 06/07/17 History Tablet] Promethazine HCl [Phenergan 25mg 25 mg PO Q4HP PRN 06/07/17 06/07/17 History tab] Rivaroxaban [Xarelto] 20 mg PO DAILY 06/07/17 06/07/17 History Simethicone [Gas-X] 125 mg PO QIDP PRN 06/07/17 06/07/17 History Tamsulosin HCl [Flomax] 0.4 mg PO DAILY 06/07/17 06/07/17 History guaiFENesin [Robitussin 200mg/10mL 200 mg PO Q4HP PRN 06/07/17 06/07/17 History Syrup Udc] Allergies Allergy/AdvReac Type Severity Reaction Status Date / Time lisinopril [LISINOPRIL] Allergy Mild Verified 06/06/17 22:26 procaine [PROCAINE] Allergy Mild Verified 06/06/17 22:26 Penicillins [PENICILLINS] Allergy Unknown Verified 06/06/17 22:26 Exam Vital signs and Labs for Last 24 Hours: Temp Pulse Resp BP Pulse Ox 98.5 F 71 24 189/83 97 06/09/17 04:00 06/09/17 06:21 06/09/17 04:00 06/09/17 04:00 06/09/17 06:21 Laboratory Results - last 24 hr 06/07/17 00:15: Crossmatch ([facility]) See Detail 06/09/17 06:15: WBC 7.5, RBC 2.76 L, Hgb 7.2 L*, Hct 22.2 L*, MCV 80.5 L, MCH 26.0 L, MCHC 32.3, RDW 15.0, Plt Count 181, MPV 9.3, Neut % (Auto) 77.8
--- NOTE | 2017-06-09 09:10 | P.CONS_ITS ---
*Admission Date: 06/06/17 *Chief complaint: Anemia *History of present illness: Patient is an 82-year-old shelter resident with a history of atrial fibrillation, aortic stenosis, prior CVA in 2010, myocardial infarction in 2016 , on Xarelto. She was admitted a couple of days ago. She was found to be anemic. She has had progressive decrease in her hemoglobin despite some transfusion. She does have Hemoccult positive stool. According to the staff she did have a black stool this morning. Surgery was consulted. Review of Systems - Review of Systems Review of systems:: unable to obtain - *Neurologic Reports weakness, Denies headache(s), Denies seizure-like activity [facility] History I have reviewed the patient's past medical history: Yes Medical History: Reports:: Arrhythmia, Atrial Fibrillation, Congestive Heart Failure, Chronic Obstructive Pulmonary Disease (COPD), Coronary Artery Disease, Cerebrovascular Accident, Hypertension, Myocardial Infarction, Renal Disease, Valvular Heart Disease Other Medical History: Reports: Hypothyroidism - *Social History Alcohol Intake: never - Psychiatric History Expresses thoughts of harming self/others: None Suicide Plan Description: No Plan Meds Home Medications Medication Instructions Recorded Confirmed Type Acetaminophen [Acetaminophen Extra 500 mg PO Q4HP PRN 06/07/17 06/07/17 History Strength] Aspirin [Aspirin 81mg chewable 81 mg PO DAILY 06/07/17 06/07/17 History tab] Buspirone HCl [Buspar 10mg tablet] 15 mg PO TID 06/07/17 06/07/17 History Docusate Sodium [Colace 250mg 250 mg PO DAILY 06/07/17 06/07/17 History capsule] Escitalopram Oxalate [Lexapro] 20 mg PO HS 06/07/17 06/07/17 History Fenofibrate Nanocrystallized 48 mg PO DAILY 06/07/17 06/07/17 History [Tricor] Hydrocod/Acet 5/325 mg [[place] 5 mg PO HS 06/07/17 06/07/17 History 5/325mg tablet] Ipratropium/Albuterol Sulfate 3 ml IH TIDP PRN 06/07/17 06/07/17 History [Albut-Ipratropium 2.5mg-0.5mg/3 ml] Levothyroxine Sodium [Synthroid 50 mg PO DAILY 06/07/17 06/07/17 History 50mcg (0.05mg) tab] Loperamide HCl [Imodium 2 mg 2 mg PO Q3HP PRN 06/07/17 06/07/17 History capsule] Loratadine [Claritin 10mg Tablet] 10 mg PO DAILY 06/07/17 06/07/17 History Metoprolol Tartrate [Lopressor 25 mg PO BID 06/07/17 06/07/17 History 25mg tablet] Montelukast Sodium [Singulair 10mg 10 mg PO PM 06/07/17 06/07/17 History tablet] Multivitamin [One Daily] 1 each PO DAILY 06/07/17 06/07/17 History Nitroglycerin [Nitrostat 0.4mg SL 0.4 mg SL Q5MINP PRN 06/07/17 06/07/17 History Tablet] Oxybutynin Chloride [Oxybutynin 5 mg PO DAILY 06/07/17 06/07/17 History Chloride ER] Polyethylene Glycol 3350 [Miralax 17 gm PO HS 06/07/17 06/07/17 History 17gm Packet] Pravastatin Sodium [Pravachol 20mg 20 mg PO DAILY 06/07/17 06/07/17 History Tablet] Promethazine HCl [Phenergan 25mg 25 mg PO Q4HP PRN 06/07/17 06/07/17 History tab] Rivaroxaban [Xarelto] 20 mg PO DAILY 06/07/17 06/07/17 History Simethicone [Gas-X] 125 mg PO QIDP PRN 06/07/17 06/07/17 History Tamsulosin HCl [Flomax] 0.4 mg PO DAILY 06/07/17 06/07/17 History guaiFENesin [Robitussin 200mg/10mL 200 mg PO Q4HP PRN 06/07/17 06/07/17 History Syrup Udc] Allergies Allergy/AdvReac Type Severity Reaction Status Date / Time
--- NOTE | 2017-06-09 11:34 | HMH.ANESCL ---
[facility] Anesthesia Checklist - Structural Data Admitted From: Home Planned Operative Procedure/s: egd Consent for Planned Operative Procedure(s) Verified: Yes Verified Documents: Surgical Consent - NPO Status Verified Time NPO: 12:00 - Airway Assessment C-Spine Mobility Assessed: Yes TMJ Mobility Assessed: Yes Dentition: Edentulous - Neurological Assessment Level of Consciousness: Awake, Alert - Anesthesia Plan Anesthesia Risk discussed: Yes Anesthesia Plan: Verified ASA Class: II Anesthesia Type: MAC [facility] Anesthesia HX I have reviewed the patient's past medical history: Yes Medical History: Reports:: Arrhythmia, Atrial Fibrillation, Congestive Heart Failure, Chronic Obstructive Pulmonary Disease (COPD), Coronary Artery Disease, Cerebrovascular Accident, Hypertension, Myocardial Infarction, Renal Disease, Valvular Heart Disease Other Medical History: Reports: Hypothyroidism
--- NOTE | 2017-06-09 11:37 | P.PN_ITS ---
[facility] Anesthesia Checklist - Structural Data Admitted From: Home Planned Operative Procedure/s: egd Consent for Planned Operative Procedure(s) Verified: Yes Verified Documents: Surgical Consent - NPO Status Verified Time NPO: 12:00 - Airway Assessment C-Spine Mobility Assessed: Yes TMJ Mobility Assessed: Yes Dentition: Edentulous - Neurological Assessment Level of Consciousness: Awake, Alert - Anesthesia Plan Anesthesia Risk discussed: Yes Anesthesia Plan: Verified ASA Class: II Anesthesia Type: MAC [facility] Anesthesia HX I have reviewed the patient's past medical history: Yes Medical History: Reports:: Arrhythmia, Atrial Fibrillation, Congestive Heart Failure, Chronic Obstructive Pulmonary Disease (COPD), Coronary Artery Disease, Cerebrovascular Accident, Hypertension, Myocardial Infarction, Renal Disease, Valvular Heart Disease Other Medical History: Reports: Hypothyroidism
--- NOTE | 2017-06-09 12:09 | HMH.SCOPE ---
- Procedure: Date: 06/09/17 Procedure Performed:: Esophagogastroduodenoscopy Indications:: Patient is an 82-year-old group home patient with multiple medical comorbidities including atrial fibrillation, prior stroke, prior PR, aortic stenosis on Xarelto. She was admitted and found to be anemic. She had diminishing hemoglobin and hematocrit after transfusion. She had Hemoccult positive stool and some melena. Surgical consultation was obtained. Performing Provider:: Mike Burciaga MD Referring Provider:: Destinee Sedation:: Propofol Procedure:: Consent was obtained and patient taken to same-day surgery endoscopy procedure room. She was positioned in a lateral decubitus position and adequate intravenous sedation was achieved with anesthesia titration of propofol. Olympus endoscope was inserted via the oropharynx. Esophagus appeared normal. Stomach was cannulated and retroflexion revealed small to moderate sliding hiatal hernia. In the interim there were several shallow ulcerations. There was no active any stigmata of recent bleeding such as visible vessel or adherent clot. Endoscope was advanced through the pylorus and the duodenal bulb and duodenal sweep were carefully inspected and there was noted to be no evidence of any obvious ulcer. Stomach was desufflated and the endoscope was withdrawn. Findings:: Hiatal hernia Shallow prepyloric antral ulcers Recommendations:: At this point I would treat with proton pump inhibitors and possibly add Carafate. Transfuse as necessary and monitor hemoglobin and hematocrit. I would plan as the next step consideration of contrast enema early next week to fully evaluate the colon as a noninvasive procedure as bowel preparation and sedation for colonoscopy would carry appreciable risk. Complications:: None Estimated blood obtained (mL): 0
--- NOTE | 2017-06-09 12:13 | P.PCN_ITS ---
- Procedure: Date: 06/09/17 Procedure Performed:: Esophagogastroduodenoscopy Indications:: Patient is an 82-year-old retirement patient with multiple medical comorbidities including atrial fibrillation, prior stroke, prior [place], aortic stenosis on Xarelto. She was admitted and found to be anemic. She had diminishing hemoglobin and hematocrit after transfusion. She had Hemoccult positive stool and some melena. Surgical consultation was obtained. Performing Provider:: Mike Burciaga MD Referring Provider:: Destinee Sedation:: Propofol Procedure:: Consent was obtained and patient taken to same-day surgery endoscopy procedure room. She was positioned in a lateral decubitus position and adequate intravenous sedation was achieved with anesthesia titration of propofol. Olympus endoscope was inserted via the oropharynx. Esophagus appeared normal. Stomach was cannulated and retroflexion revealed small to moderate sliding hiatal hernia. In the interim there were several shallow ulcerations. There was no active any stigmata of recent bleeding such as visible vessel or adherent clot. Endoscope was advanced through the pylorus and the duodenal bulb and duodenal sweep were carefully inspected and there was noted to be no evidence of any obvious ulcer. Stomach was desufflated and the endoscope was withdrawn. Findings:: Hiatal hernia Shallow prepyloric antral ulcers Recommendations:: At this point I would treat with proton pump inhibitors and possibly add Carafate. Transfuse as necessary and monitor hemoglobin and hematocrit. I would plan as the next step consideration of contrast enema early next week to fully evaluate the colon as a noninvasive procedure as bowel preparation and sedation for colonoscopy would carry appreciable risk. Complications:: None Estimated blood obtained (mL): 0
--- NOTE | 2017-06-09 12:24 | PC.NURSE ---
Moderate edema to face and upper extremities noted; rebound < 30 seconds
--- NOTE | 2017-06-09 12:41 | DIET.NUTRFU ---
Pt was placed NPO for a procedure today. Diet has now been advanced to full liquid. PO intake has been improving with 60% average. Recommend advancing diet as tolerated. Will continue to monitor.
[2017-06-09 17:15] LABS: Folate 9.9 ng/mL (>3.0); Iron Saturation 8 % (15-55); Vitamin B12 555 pg/mL (232-1245)
[2017-06-09 20:50] LABS: Hematocrit 28.3 % (37.0-47.0); Hemoglobin 9.5 g/dL (12.2-16.2)
[2017-06-10] VITALS (9 sets, daily range): BP systolic 169–185; BP diastolic 69–82; PULSE 60–81; RESP 18–24; TEMP 36.7–37.4; O2SAT 91–97
[2017-06-10 06:55] LABS: Basophils % 0.2 % (0.1-2.0); Eosinophils # 0.1 K/mm3 (0.0-0.4); Eosinophils % 1.5 % (0.1-12.0); Hematocrit 30.4 % (37.0-47.0); Hemoglobin 10.1 g/dL (12.2-16.2); Lymphocytes % 11.8 K/mm3 (10-50); Mean Corpuscular HGB Conc 33.1 g/dL (31.8-35.4); Mean Corpuscular Hemoglobin 26.4 pg (27.0-31.2); Mean Corpuscular Volume 79.6 fl (81-99); Mean Platelet Volume 8.7 fl (7.4-10.4); Monocytes # 0.6 K/mm3 (0.1-1.0); Monocytes % 7.1 % (1.7-9.3); Neutrophils # 6.6 K/mm3 (1.8-7.8); Neutrophils % 79.4 % (37.0-80.0); Platelet Count 176 K/mm3 (142-424); Red Blood Count 3.81 M/mm3 (4.20-5.40); White Blood Count 8.3 K/mm3 (4.8-10.8)
--- NOTE | 2017-06-10 08:55 | XR_ITS ---
XR chest portable COMPARISON: Portable upright chest 06/06/2017 HISTORY: Follow-up pneumonia TECHNIQUE: Portable upright chest FINDINGS: The ill-defined minor infiltrate remains in right infrahilar region and right lower lobe possibly appearing more prominent on today's study but this may be due to better hydration of the patient. The right upper lung field and left upper lung field remain clear. There may be some minimal scarring at the left base. Cardiac size is borderline. There is prominent degenerative change in both shoulders more prominent right side than left where there is marked subacromial stenosis and high riding humeral head. IMPRESSION: Persistent right lower lobe pneumonia and suggest continued follow-up
--- NOTE | 2017-06-10 08:57 | HMH.ACPN ---
Internal Medicine - PN: Subj *Date: 06/10/17 *Time: 08:57 Interval history: No new complaints. Still with cough, mostly nonproductive. Denies abdominal pain. Tolerating diet. Stools still reported as dark Exam Vital signs and Labs for Last 24 Hours: Temp Pulse Resp BP Pulse Ox 99.4 F 75 22 169/75 95 06/10/17 04:00 06/10/17 06:24 06/10/17 04:00 06/10/17 04:00 06/10/17 06:24 Laboratory Results - last 24 hr 06/07/17 00:15: Iron 30, TIBC 379, Iron Saturation 8 L, Unsaturated IBC 349, Vitamin B12 555, Folate 9.9 06/07/17 00:15: Crossmatch ([facility]) See Detail 06/09/17 20:39: Hgb 9.5 L D, Hct 28.3 L 06/10/17 06:42: WBC 8.3, RBC 3.81 L D, Hgb 10.1 L, Hct 30.4 L, MCV 79.6 L, MCH 26.4 L, MCHC 33.1, RDW 15.0, Plt Count 176, MPV 8.7, Neut % (Auto) 79.4, Lymph % (Auto) 11.8, [place] % (Auto) 7.1, Eos % (Auto) 1.5, Baso % (Auto) 0.2, Neut # (Auto) 6.6, Lymph # (Auto) 1.0, [place] # (Auto) 0.6, Eos # (Auto) 0.1, Baso # (Auto) 0.0 I & O for Last 24 hours: Intake & Output 06/07/17 06/08/17 06/09/17 06/10/17 11:59 11:59 11:59 11:59 Intake Total 743 / 743 4077 / 4077 2805 / 2805 1340 / 1340 Balance 743 / 743 4077 / 4077 2805 / 2805 1340 / 1340 Weight 182 lb 7 oz 182 lb 6.92 oz Narrative: Laboratory Results - last 24 hr 06/07/17 00:15: Iron 30, TIBC 379, Iron Saturation 8 L, Unsaturated IBC 349, Vitamin B12 555, Folate 9.9 06/07/17 00:15: Crossmatch ([facility]) See Detail 06/09/17 20:39: Hgb 9.5 L D, Hct 28.3 L 06/10/17 06:42: WBC 8.3, RBC 3.81 L D, Hgb 10.1 L, Hct 30.4 L, MCV 79.6 L, MCH 26.4 L, MCHC 33.1, RDW 15.0, Plt Count 176, MPV 8.7, Neut % (Auto) 79.4, Lymph % (Auto) 11.8, [place] % (Auto) 7.1, Eos % (Auto) 1.5, Baso % (Auto) 0.2, Neut # (Auto) 6.6, Lymph # (Auto) 1.0, [place] # (Auto) 0.6, Eos # (Auto) 0.1, Baso # (Auto) 0.0 - Constitutional no acute distress - *Routine Respiratory Exam Present: diminished air movement (in bases). Absent: wheezes - *Routine Cardiovascular Exam Present: RRR - *Routine Abdominal Exam Present: soft. Absent: tenderness, distended, guarding Assessment and Plan (1) HCAP (healthcare-associated pneumonia) Current visit: Yes Status: Acute Category: Medical Code(s): J18.9 - Pneumonia, unspecified organism (2) Peptic ulcer disease Current visit: Yes Status: Acute Category: Medical Code(s): K27.9 - Peptic ulcer, site unspecified, unspecified as acute or chronic, without hemorrhage or perforation (3) Anemia due to acute blood loss Current visit: Yes Status: Acute Category: Medical Code(s): D62 - Acute posthemorrhagic anemia (4) History of CVA with residual deficit Current visit: Yes Status: Acute Category: Medical Code(s): I69.30 - Unspecified sequelae of cerebral infarction (5) Hyponatremia Current visit: Yes Status: Acute Category: Medical Code(s): E87.1 - Hypo-osmolality and hyponatremia (6) LBBB (left bundle branch block) Current visit: Yes Status: Acute Category: Medical Code(s): I44.7 - Left bundle-branch block, unspecified (7) A-fib Current visit: Yes Status: Chronic Category: Medical Code(s): I48.91 - Unspecified atrial fibrillation (8) CAD (coronary artery disease) Current visit: Yes Status: Chronic Category: Medical Code(s): I25.10 - Atherosclerotic heart disease of [place] coronary artery without angina pectoris (9) HTN (hypertension) Current visit: Yes Status: Chronic Category: Medical Code(s): I10 - Essential (primary) hypertension (10) Hypothyroidism Current visit: Yes Status: Chronic Category: Medical Code(s): E03.9 - Hypothyroidism, unspecified (11) Osteoarthritis Current visit: Yes Status: Chronic Category: Medical Code(s): M19.90 - Unspecified osteoarthritis, unspecified site (12) Renal insufficiency Current visit: Yes Status: Chronic Category: Medical Code(s): N28.9 - Disorder of kidney and ureter, unspecified - Assessment and plan all Dx Asses
--- NOTE | 2017-06-10 09:00 | P.PN_ITS ---
Internal Medicine - PN: Subj *Date: 06/10/17 *Time: 08:57 Interval history: No new complaints. Still with cough, mostly nonproductive. Denies abdominal pain. Tolerating diet. Stools still reported as dark Exam Vital signs and Labs for Last 24 Hours: Temp Pulse Resp BP Pulse Ox 99.4 F 75 22 169/75 95 06/10/17 04:00 06/10/17 06:24 06/10/17 04:00 06/10/17 04:00 06/10/17 06:24 Laboratory Results - last 24 hr 06/07/17 00:15: Iron 30, TIBC 379, Iron Saturation 8 L, Unsaturated IBC 349, Vitamin B12 555, Folate 9.9 06/07/17 00:15: Crossmatch ([facility]) See Detail 06/09/17 20:39: Hgb 9.5 L D, Hct 28.3 L 06/10/17 06:42: WBC 8.3, RBC 3.81 L D, Hgb 10.1 L, Hct 30.4 L, MCV 79.6 L, MCH 26.4 L, MCHC 33.1, RDW 15.0, Plt Count 176, MPV 8.7, Neut % (Auto) 79.4, Lymph % (Auto) 11.8, [place] % (Auto) 7.1, Eos % (Auto) 1.5, Baso % (Auto) 0.2, Neut # ( Auto) 6.6, Lymph # (Auto) 1.0, [place] # (Auto) 0.6, Eos # (Auto) 0.1, Baso # (Auto ) 0.0 I & O for Last 24 hours: Intake & Output 06/07/17 06/08/17 06/09/17 06/10/17 11:59 11:59 11:59 11:59 Intake Total 743 / 743 4077 / 4077 2805 / 2805 1340 / 1340 Balance 743 / 743 4077 / 4077 2805 / 2805 1340 / 1340 Weight 182 lb 7 oz 182 lb 6.92 oz Narrative: Laboratory Results - last 24 hr 06/07/17 00:15: Iron 30, TIBC 379, Iron Saturation 8 L, Unsaturated IBC 349, Vitamin B12 555, Folate 9.9 06/07/17 00:15: Crossmatch ([facility]) See Detail 06/09/17 20:39: Hgb 9.5 L D, Hct 28.3 L 06/10/17 06:42: WBC 8.3, RBC 3.81 L D, Hgb 10.1 L, Hct 30.4 L, MCV 79.6 L, MCH 26.4 L, MCHC 33.1, RDW 15.0, Plt Count 176, MPV 8.7, Neut % (Auto) 79.4, Lymph % (Auto) 11.8, [place] % (Auto) 7.1, Eos % (Auto) 1.5, Baso % (Auto) 0.2, Neut # ( Auto) 6.6, Lymph # (Auto) 1.0, [place] # (Auto) 0.6, Eos # (Auto) 0.1, Baso # (Auto ) 0.0 - Constitutional no acute distress - *Routine Respiratory Exam Present: diminished air movement (in bases). Absent: wheezes - *Routine Cardiovascular Exam Present: RRR - *Routine Abdominal Exam Present: soft. Absent: tenderness, distended, guarding Assessment and Plan (1) HCAP (healthcare-associated pneumonia) Current visit: Yes Status: Acute Category: Medical Code(s): J18.9 - Pneumonia, unspecified organism (2) Peptic ulcer disease Current visit: Yes Status: Acute Category: Medical Code(s): K27.9 - Peptic ulcer, site unspecified, unspecified as acute or chronic, without hemorrhage or perforation (3) Anemia due to acute blood loss Current visit: Yes Status: Acute Category: Medical Code(s): D62 - Acute posthemorrhagic anemia (4) History of CVA with residual deficit Current visit: Yes Status: Acute Category: Medical Code(s): I69.30 - Unspecified sequelae of cerebral infarction (5) Hyponatremia Current visit: Yes Status: Acute Category: Medical Code(s): E87.1 - Hypo- osmolality and hyponatremia (6) LBBB (left bundle branch block) Current visit: Yes Status: Acute Category: Medical Code(s): I44.7 - Left bundle-branch block, unspecified (7) A-fib Current visit: Yes Status: Chronic Category: Medical Code(s): I48.91 - Unspecified atrial fibrillation (8) CAD (coronary artery disease) Current visit: Yes Status: Chronic Category: Medical Code(s): I25.10 - Atherosclerotic heart disease of [place] coronary artery without angina pectoris (9) HTN (hypertension) Current visit: Yes Status: Chronic Category: Medical Code(s): I10 -
--- NOTE | 2017-06-10 11:39 | HMH.GSPN ---
Subjective Patient reports: no new complaints, no bowel movement Narrative: Denies abdominal pain. No other complaints. Exam Vital signs and Labs for Last 24 Hours: Temp Pulse Resp BP Pulse Ox 98.5 F 75 22 178/79 92 L 06/10/17 08:00 06/10/17 08:00 06/10/17 08:00 06/10/17 08:00 06/10/17 08:00 Laboratory Results - last 24 hr 06/07/17 00:15: Iron 30, TIBC 379, Iron Saturation 8 L, Unsaturated IBC 349, Vitamin B12 555, Folate 9.9 06/07/17 00:15: Crossmatch ([facility]) See Detail 06/09/17 20:39: Hgb 9.5 L D, Hct 28.3 L 06/10/17 06:42: WBC 8.3, RBC 3.81 L D, Hgb 10.1 L, Hct 30.4 L, MCV 79.6 L, MCH 26.4 L, MCHC 33.1, RDW 15.0, Plt Count 176, MPV 8.7, Neut % (Auto) 79.4, Lymph % (Auto) 11.8, [place] % (Auto) 7.1, Eos % (Auto) 1.5, Baso % (Auto) 0.2, Neut # (Auto) 6.6, Lymph # (Auto) 1.0, [place] # (Auto) 0.6, Eos # (Auto) 0.1, Baso # (Auto) 0.0 I & O for Last 24 hours: Intake & Output 06/07/17 06/08/17 06/09/17 06/10/17 23:59 23:59 23:59 23:59 Intake Total 3280 / 3280 3269 / 3269 2416 / 2416 240 / 240 Balance 3280 / 3280 3269 / 3269 2416 / 2416 240 / 240 Weight 182 lb 6.92 oz - *Routine Abdominal Exam Present: soft. Absent: tenderness, distended, rebound, guarding Progress Note: A&P (1) Peptic ulcer disease Status: Acute Current Visit: Yes (2) Anemia due to acute blood loss Status: Acute Assessment and plan: Transfused yesterday with appropriate response. H/H increased again this morning. Continue to trend H/H, transfuse as needed. Contrast enema if continues to have melenic stool and decreasing H/H. Current Visit: Yes - Time Spent With Patient less than 15 minutes
--- NOTE | 2017-06-10 11:42 | P.PN_ITS ---
Subjective Patient reports: no new complaints, no bowel movement Narrative: Denies abdominal pain. No other complaints. Exam Vital signs and Labs for Last 24 Hours: Temp Pulse Resp BP Pulse Ox 98.5 F 75 22 178/79 92 L 06/10/17 08:00 06/10/17 08:00 06/10/17 08:00 06/10/17 08:00 06/10/17 08:00 Laboratory Results - last 24 hr 06/07/17 00:15: Iron 30, TIBC 379, Iron Saturation 8 L, Unsaturated IBC 349, Vitamin B12 555, Folate 9.9 06/07/17 00:15: Crossmatch ([facility]) See Detail 06/09/17 20:39: Hgb 9.5 L D, Hct 28.3 L 06/10/17 06:42: WBC 8.3, RBC 3.81 L D, Hgb 10.1 L, Hct 30.4 L, MCV 79.6 L, MCH 26.4 L, MCHC 33.1, RDW 15.0, Plt Count 176, MPV 8.7, Neut % (Auto) 79.4, Lymph % (Auto) 11.8, [place] % (Auto) 7.1, Eos % (Auto) 1.5, Baso % (Auto) 0.2, Neut # ( Auto) 6.6, Lymph # (Auto) 1.0, [place] # (Auto) 0.6, Eos # (Auto) 0.1, Baso # (Auto ) 0.0 I & O for Last 24 hours: Intake & Output 06/07/17 06/08/17 06/09/17 06/10/17 23:59 23:59 23:59 23:59 Intake Total 3280 / 3280 3269 / 3269 2416 / 2416 240 / 240 Balance 3280 / 3280 3269 / 3269 2416 / 2416 240 / 240 Weight 182 lb 6.92 oz - *Routine Abdominal Exam Present: soft. Absent: tenderness, distended, rebound, guarding Progress Note: A&P (1) Peptic ulcer disease Status: Acute Current Visit: Yes (2) Anemia due to acute blood loss Status: Acute Assessment and plan: Transfused yesterday with appropriate response. H/H increased again this morning. Continue to trend H/H, transfuse as needed. Contrast enema if continues to have melenic stool and decreasing H/H. Current Visit: Yes - Time Spent With Patient less than 15 minutes
--- NOTE | 2017-06-10 14:38 | HMH.ACPN ---
Internal Medicine - PN: Subj *Date: 06/10/17 *Time: 14:38 Exam Vital signs and Labs for Last 24 Hours: Temp Pulse Resp BP Pulse Ox 98.1 F 77 22 185/81 95 06/10/17 12:00 06/10/17 13:59 06/10/17 12:00 06/10/17 12:00 06/10/17 12:00 Laboratory Results - last 24 hr 06/07/17 00:15: Iron 30, TIBC 379, Iron Saturation 8 L, Unsaturated IBC 349, Vitamin B12 555, Folate 9.9 06/07/17 00:15: Crossmatch ([facility]) See Detail 06/09/17 20:39: Hgb 9.5 L D, Hct 28.3 L 06/10/17 06:42: WBC 8.3, RBC 3.81 L D, Hgb 10.1 L, Hct 30.4 L, MCV 79.6 L, MCH 26.4 L, MCHC 33.1, RDW 15.0, Plt Count 176, MPV 8.7, Neut % (Auto) 79.4, Lymph % (Auto) 11.8, [place] % (Auto) 7.1, Eos % (Auto) 1.5, Baso % (Auto) 0.2, Neut # (Auto) 6.6, Lymph # (Auto) 1.0, [place] # (Auto) 0.6, Eos # (Auto) 0.1, Baso # (Auto) 0.0 I & O for Last 24 hours: Intake & Output 06/07/17 06/08/17 06/09/17 06/10/17 23:59 23:59 23:59 23:59 Intake Total 3280 / 3280 3269 / 3269 2416 / 2416 480 / 480 Balance 3280 / 3280 3269 / 3269 2416 / 2416 480 / 480 Weight 82.75 kg The patient's infection will respond to the chosen ABx?: Yes Is the patient receiving the right drug, dose, and route?: Yes Could a more targeted ABx be ordered?: No
[2017-06-11] VITALS (16 sets, daily range): BP systolic 147–186; BP diastolic 61–87; PULSE 64–103; RESP 18–24; TEMP 36.7–37.5; O2SAT 90–100
--- NOTE | 2017-06-11 04:21 | PC.NURSE ---
PT WITH COMPLAINTS OF SOB, O2 AT 2L PER NC. LUNGS WITH EXPIRATORY WHEEZES AND DIMINISHED THROUGHOUT. RR 26. O2 SAT 91-92 PERCENT ON 3L PER NC. PT STILL SOB WITH INCREASE IN O2 TO 3L. ABD BREATHING NOTED. CALLED DR GAINES, INFORMED OF ABOVE. RECEIVED ORDER TO GIVE NEB TX EARLY AND TO GIVE LASIX 20MG IV. MD CALLED AT 0410, RESPIRATORY HERE AT 0415 ADMINISTERING BREATHNG TX AND LASIX 20MG IV GIVEN. PT HOB RAISED. WILL CONTIUE TO MONITOR.
--- NOTE | 2017-06-11 05:07 | PC.NURSE ---
AT 0430 HR UP TO 113, SATS 89-90 PERCENT ON 3L. PT FLUSHED AND DIAPHRETIC. IV LASIX GIVEN. B/P AT 044O 185/87. PT AT O500 CURRENTLY B/P 179\86. STATES BREATHING HAS IMPROVED. REMAINS FLUSHED BUT NOT DIAPHORETIC. HR DOWN TO 90S SINUS RHYTHM ON TELEMETRY. CONTINUE TO MONITOR. PT HAS NOT VOIDED SINCE IV LASIX GIVEN.
--- NOTE | 2017-06-11 05:33 | PC.NURSE ---
rn aware of all vital signs
[2017-06-11 07:49] LABS: Basophils % 0.2 % (0.1-2.0); Eosinophils # 0.1 K/mm3 (0.0-0.4); Eosinophils % 0.6 % (0.1-12.0); Hematocrit 31.2 % (37.0-47.0); Hemoglobin 10.1 g/dL (12.2-16.2); Lymphocytes # 0.5 K/mm3 (0.7-4.5); Lymphocytes % 3.9 K/mm3 (10-50); Mean Corpuscular HGB Conc 32.5 g/dL (31.8-35.4); Mean Corpuscular Hemoglobin 26.3 pg (27.0-31.2); Mean Corpuscular Volume 81.1 fl (81-99); Monocytes # 0.9 K/mm3 (0.1-1.0); Monocytes % 7.9 % (1.7-9.3); Neutrophils # 10.5 K/mm3 (1.8-7.8); Neutrophils % 87.4 % (37.0-80.0); Platelet Count 193 K/mm3 (142-424); Red Blood Count 3.85 M/mm3 (4.20-5.40); Red Cell Distribution Width 14.9 % (11.5-17.5)
[2017-06-11 07:51] LABS: MANUAL DIFFERENTIAL MANUAL DIFFERENTIAL (MANUAL DIFF)
--- NOTE | 2017-06-11 08:26 | HMH.ACPN ---
Internal Medicine - PN: Subj *Date: 06/11/17 *Time: 08:44 Interval history: Had spell of SOA last night relieved with Lasix. CXR yesterday makes no mention of CHF. Feels OK now. No chest pain. Still with some cough. Exam Vital signs and Labs for Last 24 Hours: Temp Pulse Resp BP Pulse Ox 98.0 F 75 24 175/68 94 L 06/11/17 08:02 06/11/17 08:02 06/11/17 08:02 06/11/17 08:02 06/11/17 08:02 Laboratory Results - last 24 hr 06/11/17 06:36: WBC 12.0 H D, RBC 3.85 L, Hgb 10.1 L, Hct 31.2 L, MCV 81.1, MCH 26.3 L, MCHC 32.5, RDW 14.9, Plt Count 193, MPV 9.0, Neut % (Auto) 87.4 H, Lymph % (Auto) 3.9 L, [place] % (Auto) 7.9, Eos % (Auto) 0.6, Baso % (Auto) 0.2, Neut # (Auto) 10.5 H, Lymph # (Auto) 0.5 L, [place] # (Auto) 0.9, Eos # (Auto) 0.1, Baso # (Auto) 0.0 I & O for Last 24 hours: Intake & Output 06/08/17 06/09/17 06/10/17 06/11/17 11:59 11:59 11:59 11:59 Intake Total 4077 / 4077 2805 / 2805 1680 / 1680 5160 / 5160 Balance 4077 / 4077 2805 / 2805 1680 / 1680 5160 / 5160 Weight 182 lb 6.92 oz - Constitutional Comments: lying flat and breathing comfortably at this time. Color normal - *Routine Respiratory Exam Comments: coarse rhonchi, no wheezes - *Routine Cardiovascular Exam Present: RRR - *Routine Abdominal Exam Comments: obese, soft, mild epigastric tenderness Assessment and Plan (1) HCAP (healthcare-associated pneumonia) Current visit: Yes Status: Acute Category: Medical Code(s): J18.9 - Pneumonia, unspecified organism (2) Peptic ulcer disease Current visit: Yes Status: Acute Category: Medical Code(s): K27.9 - Peptic ulcer, site unspecified, unspecified as acute or chronic, without hemorrhage or perforation (3) Anemia due to acute blood loss Current visit: Yes Status: Acute Category: Medical Code(s): D62 - Acute posthemorrhagic anemia (4) History of CVA with residual deficit Current visit: Yes Status: Acute Category: Medical Code(s): I69.30 - Unspecified sequelae of cerebral infarction (5) Hyponatremia Current visit: Yes Status: Acute Category: Medical Code(s): E87.1 - Hypo-osmolality and hyponatremia (6) LBBB (left bundle branch block) Current visit: Yes Status: Acute Category: Medical Code(s): I44.7 - Left bundle-branch block, unspecified (7) A-fib Current visit: Yes Status: Chronic Category: Medical Code(s): I48.91 - Unspecified atrial fibrillation (8) CAD (coronary artery disease) Current visit: Yes Status: Chronic Category: Medical Code(s): I25.10 - Atherosclerotic heart disease of [place] coronary artery without angina pectoris (9) HTN (hypertension) Current visit: Yes Status: Chronic Category: Medical Code(s): I10 - Essential (primary) hypertension (10) Hypothyroidism Current visit: Yes Status: Chronic Category: Medical Code(s): E03.9 - Hypothyroidism, unspecified (11) Osteoarthritis Current visit: Yes Status: Chronic Category: Medical Code(s): M19.90 - Unspecified osteoarthritis, unspecified site (12) Renal insufficiency Current visit: Yes Status: Chronic Category: Medical Code(s): N28.9 - Disorder of kidney and ureter, unspecified - Assessment and plan all Dx Assessment and Plan for all problems:: Spell of dyspnea overnight, ? fluid overload although not evident on CXR. She appears to have responded to Lasix. Will decrease IVF. WBC has increased and infiltrate on CXR is about the same. Will add Ertapenem. H&H remains stable.
--- NOTE | 2017-06-11 08:29 | P.PN_ITS ---
Internal Medicine - PN: Subj *Date: 06/11/17 *Time: 08:44 Interval history: Had spell of SOA last night relieved with Lasix. CXR yesterday makes no mention of CHF. Feels OK now. No chest pain. Still with some cough. Exam Vital signs and Labs for Last 24 Hours: Temp Pulse Resp BP Pulse Ox 98.0 F 75 24 175/68 94 L 06/11/17 08:02 06/11/17 08:02 06/11/17 08:02 06/11/17 08:02 06/11/17 08:02 Laboratory Results - last 24 hr 06/11/17 06:36: WBC 12.0 H D, RBC 3.85 L, Hgb 10.1 L, Hct 31.2 L, MCV 81.1, MCH 26.3 L, MCHC 32.5, RDW 14.9, Plt Count 193, MPV 9.0, Neut % (Auto) 87.4 H, Lymph % (Auto) 3.9 L, [place] % (Auto) 7.9, Eos % (Auto) 0.6, Baso % (Auto) 0.2, Neut # (Auto) 10.5 H, Lymph # (Auto) 0.5 L, [place] # (Auto) 0.9, Eos # (Auto) 0.1 , Baso # (Auto) 0.0 I & O for Last 24 hours: Intake & Output 06/08/17 06/09/17 06/10/17 06/11/17 11:59 11:59 11:59 11:59 Intake Total 4077 / 4077 2805 / 2805 1680 / 1680 5160 / 5160 Balance 4077 / 4077 2805 / 2805 1680 / 1680 5160 / 5160 Weight 182 lb 6.92 oz - Constitutional Comments: lying flat and breathing comfortably at this time. Color normal - *Routine Respiratory Exam Comments: coarse rhonchi, no wheezes - *Routine Cardiovascular Exam Present: RRR - *Routine Abdominal Exam Comments: obese, soft, mild epigastric tenderness Assessment and Plan (1) HCAP (healthcare-associated pneumonia) Current visit: Yes Status: Acute Category: Medical Code(s): J18.9 - Pneumonia, unspecified organism (2) Peptic ulcer disease Current visit: Yes Status: Acute Category: Medical Code(s): K27.9 - Peptic ulcer, site unspecified, unspecified as acute or chronic, without hemorrhage or perforation (3) Anemia due to acute blood loss Current visit: Yes Status: Acute Category: Medical Code(s): D62 - Acute posthemorrhagic anemia (4) History of CVA with residual deficit Current visit: Yes Status: Acute Category: Medical Code(s): I69.30 - Unspecified sequelae of cerebral infarction (5) Hyponatremia Current visit: Yes Status: Acute Category: Medical Code(s): E87.1 - Hypo- osmolality and hyponatremia (6) LBBB (left bundle branch block) Current visit: Yes Status: Acute Category: Medical Code(s): I44.7 - Left bundle-branch block, unspecified (7) A-fib Current visit: Yes Status: Chronic Category: Medical Code(s): I48.91 - Unspecified atrial fibrillation (8) CAD (coronary artery disease) Current visit: Yes Status: Chronic Category: Medical Code(s): I25.10 - Atherosclerotic heart disease of [place] coronary artery without angina pectoris (9) HTN (hypertension) Current visit: Yes Status: Chronic Category: Medical Code(s): I10 - Essential (primary) hypertension (10) Hypothyroidism Current visit: Yes Status: Chronic Category: Medical Code(s): E03.9 - Hypothyroidism, unspecified (11) Osteoarthritis Current visit: Yes Status: Chronic Category: Medical Code(s): M19.90 - Unspecified osteoarthritis, unspecified site (12) Renal insufficiency Current visit: Yes Status: Chronic Category: Medical Code(s): N28.9 - Disorder of kidney and ureter, unspecified - Assessment and plan all Dx Assessment and Plan for all problems:: Spell of dyspnea overnight, ? fluid overload although not evident on CXR. She appears to have responded to Lasix. Will decrease IVF. WBC has in
[2017-06-11 09:56] LABS: Eosinophils % 1 % (0-3); Lymphocytes % 3 % (10-50); Monocytes % 9 % (2-9); Neutrophils % 86 % (42-76); Total Cells Counted 100
[2017-06-11 09:57] LABS: Platelet Estimate Normal; RBC Morphology Normal
--- NOTE | 2017-06-11 20:28 | PC.NURSE ---
rn aware of all vital signs
[2017-06-12] VITALS (15 sets, daily range): BP systolic 135–171; BP diastolic 59–70; PULSE 57–74; RESP 20–22; TEMP 36.2–37.1; O2SAT 90–97
--- NOTE | 2017-06-12 00:26 | PC.NURSE ---
rn made aware of all vital signs
--- NOTE | 2017-06-12 04:33 | PC.NURSE ---
PT HAS RESTED BETTER TONIGHT. CONTINUES ON 2L PER NC. NO COMPLAINTS OF SOB. PT TURNED EVERY 2 HOURS. PT TOLERATING FLUIDS WELL. NO BM REPORTED THIS SHIFT.
--- NOTE | 2017-06-12 04:38 | PC.NURSE ---
rn aware of all vital signs
--- NOTE | 2017-06-12 07:57 | HMH.GSPN ---
Subjective Patient reports: no new complaints, feels better (Patient states she feels much better.) Exam Vital signs and Labs for Last 24 Hours: Temp Pulse Resp BP Pulse Ox 97.5 F L 65 20 169/70 97 06/12/17 04:00 06/12/17 06:00 06/12/17 04:00 06/12/17 04:00 06/12/17 06:00 Laboratory Results - last 24 hr 06/11/17 06:36: Total Counted 100, Neutrophils % (Manual) 86 H, Band Neutrophils % 1.0, Lymphocytes % (Manual) 3 L, Monocytes % (Manual) 9, Eosinophils % (Manual) 1, Platelet Estimate Normal, RBC Morphology Normal 06/11/17 06:36: B-Natriuretic Peptide 1140 H I & O for Last 24 hours: Intake & Output 06/09/17 06/10/17 06/11/17 06/12/17 11:59 11:59 11:59 11:59 Intake Total 2805 / 2805 1680 / 1680 5260 / 5260 1596 / 1596 Balance 2805 / 2805 1680 / 1680 5260 / 5260 1596 / 1596 Weight 186 lb 4 oz - *Routine Abdominal Exam Present: soft. Absent: tenderness Progress Note: A&P (1) Anemia Status: Acute Assessment and plan: H/H stable last several days after total transfusion of 4 units during hospitalization. No further surgical intervention at this time. Continue medical treatment for antral ulcerations. Current Visit: Yes
--- NOTE | 2017-06-12 08:06 | HMH.ACPN ---
Internal Medicine - PN: Subj *Date: 06/12/17 *Time: 08:06 Interval history: Rested better lsst night. No episodes of dyspnea. Exam Vital signs and Labs for Last 24 Hours: Temp Pulse Resp BP Pulse Ox 97.5 F L 65 20 169/70 97 06/12/17 04:00 06/12/17 06:00 06/12/17 04:00 06/12/17 04:00 06/12/17 06:00 Laboratory Results - last 24 hr 06/11/17 06:36: Total Counted 100, Neutrophils % (Manual) 86 H, Band Neutrophils % 1.0, Lymphocytes % (Manual) 3 L, Monocytes % (Manual) 9, Eosinophils % (Manual) 1, Platelet Estimate Normal, RBC Morphology Normal 06/11/17 06:36: B-Natriuretic Peptide 1140 H I & O for Last 24 hours: Intake & Output 06/09/17 06/10/17 06/11/17 06/12/17 11:59 11:59 11:59 11:59 Intake Total 2805 / 2805 1680 / 1680 5260 / 5260 1596 / 1596 Balance 2805 / 2805 1680 / 1680 5260 / 5260 1596 / 1596 Weight 186 lb 4 oz Narrative: Abnormal Lab Results 06/11/17 06/11/17 06:36 06:36 Total Counted 100 Neutrophils % (Manual) 86 H Band Neutrophils % 1.0 Lymphocytes % (Manual) 3 L Monocytes % (Manual) 9 Eosinophils % (Manual) 1 Platelet Estimate Normal RBC Morphology Normal B-Natriuretic Peptide 1140 H - Constitutional Comments: alert and pleasant - *Routine Respiratory Exam Present: decreased breath sounds (in bases) - *Routine Cardiovascular Exam Present: RRR - *Routine Abdominal Exam Present: soft. Absent: tenderness Assessment and Plan (1) HCAP (healthcare-associated pneumonia) Current visit: Yes Status: Acute Category: Medical Code(s): J18.9 - Pneumonia, unspecified organism (2) Peptic ulcer disease Current visit: Yes Status: Acute Category: Medical Code(s): K27.9 - Peptic ulcer, site unspecified, unspecified as acute or chronic, without hemorrhage or perforation (3) Anemia due to acute blood loss Current visit: Yes Status: Acute Category: Medical Code(s): D62 - Acute posthemorrhagic anemia (4) History of CVA with residual deficit Current visit: Yes Status: Acute Category: Medical Code(s): I69.30 - Unspecified sequelae of cerebral infarction (5) Hyponatremia Current visit: Yes Status: Acute Category: Medical Code(s): E87.1 - Hypo-osmolality and hyponatremia (6) LBBB (left bundle branch block) Current visit: Yes Status: Acute Category: Medical Code(s): I44.7 - Left bundle-branch block, unspecified (7) A-fib Current visit: Yes Status: Chronic Category: Medical Code(s): I48.91 - Unspecified atrial fibrillation (8) CAD (coronary artery disease) Current visit: Yes Status: Chronic Category: Medical Code(s): I25.10 - Atherosclerotic heart disease of [place] coronary artery without angina pectoris (9) HTN (hypertension) Current visit: Yes Status: Chronic Category: Medical Code(s): I10 - Essential (primary) hypertension (10) Hypothyroidism Current visit: Yes Status: Chronic Category: Medical Code(s): E03.9 - Hypothyroidism, unspecified (11) Osteoarthritis Current visit: Yes Status: Chronic Category: Medical Code(s): M19.90 - Unspecified osteoarthritis, unspecified site (12) Renal insufficiency Current visit: Yes Status: Chronic Category: Medical Code(s): N28.9 - Disorder of kidney and ureter, unspecified - Assessment and plan all Dx Assessment and Plan for all problems:: Repeat CBC and add daily Lasix. Back to [place] soon.
--- NOTE | 2017-06-12 08:10 | P.PN_ITS ---
Internal Medicine - PN: Subj *Date: 06/12/17 *Time: 08:06 Interval history: Rested better lsst night. No episodes of dyspnea. Exam Vital signs and Labs for Last 24 Hours: Temp Pulse Resp BP Pulse Ox 97.5 F L 65 20 169/70 97 06/12/17 04:00 06/12/17 06:00 06/12/17 04:00 06/12/17 04:00 06/12/17 06:00 Laboratory Results - last 24 hr 06/11/17 06:36: Total Counted 100, Neutrophils % (Manual) 86 H, Band Neutrophils % 1.0, Lymphocytes % (Manual) 3 L, Monocytes % (Manual) 9, Eosinophils % (Manual) 1, Platelet Estimate Normal, RBC Morphology Normal 06/11/17 06:36: B-Natriuretic Peptide 1140 H I & O for Last 24 hours: Intake & Output 06/09/17 06/10/17 06/11/17 06/12/17 11:59 11:59 11:59 11:59 Intake Total 2805 / 2805 1680 / 1680 5260 / 5260 1596 / 1596 Balance 2805 / 2805 1680 / 1680 5260 / 5260 1596 / 1596 Weight 186 lb 4 oz Narrative: Abnormal Lab Results 06/11/17 06/11/17 06:36 06:36 Total Counted 100 Neutrophils % (Manual) 86 H Band Neutrophils % 1.0 Lymphocytes % (Manual) 3 L Monocytes % (Manual) 9 Eosinophils % (Manual) 1 Platelet Estimate Normal RBC Morphology Normal B-Natriuretic Peptide 1140 H - Constitutional Comments: alert and pleasant - *Routine Respiratory Exam Present: decreased breath sounds (in bases) - *Routine Cardiovascular Exam Present: RRR - *Routine Abdominal Exam Present: soft. Absent: tenderness Assessment and Plan (1) HCAP (healthcare-associated pneumonia) Current visit: Yes Status: Acute Category: Medical Code(s): J18.9 - Pneumonia, unspecified organism (2) Peptic ulcer disease Current visit: Yes Status: Acute Category: Medical Code(s): K27.9 - Peptic ulcer, site unspecified, unspecified as acute or chronic, without hemorrhage or perforation (3) Anemia due to acute blood loss Current visit: Yes Status: Acute Category: Medical Code(s): D62 - Acute posthemorrhagic anemia (4) History of CVA with residual deficit Current visit: Yes Status: Acute Category: Medical Code(s): I69.30 - Unspecified sequelae of cerebral infarction (5) Hyponatremia Current visit: Yes Status: Acute Category: Medical Code(s): E87.1 - Hypo- osmolality and hyponatremia (6) LBBB (left bundle branch block) Current visit: Yes Status: Acute Category: Medical Code(s): I44.7 - Left bundle-branch block, unspecified (7) A-fib Current visit: Yes Status: Chronic Category: Medical Code(s): I48.91 - Unspecified atrial fibrillation (8) CAD (coronary artery disease) Current visit: Yes Status: Chronic Category: Medical Code(s): I25.10 - Atherosclerotic heart disease of [place] coronary artery without angina pectoris (9) HTN (hypertension) Current visit: Yes Status: Chronic Category: Medical Code(s): I10 - Essential (primary) hypertension (10) Hypothyroidism Current visit: Yes Status: Chronic Category: Medical Code(s): E03.9 - Hypothyroidism, unspecified (11) Osteoarthritis Current visit: Yes Status: Chronic Category: Medical Code(s): M19.90 - Unspecified osteoarthritis, unspecified site (12) Renal insufficiency Current visit: Yes Status: Chronic Category: Medical Code(s): N28.9 - Disorder of kidney and ureter, unspecified - A
[2017-06-12 09:04] LABS: Basophils % 0.5 % (0.1-2.0); Eosinophils # 0.1 K/mm3 (0.0-0.4); Eosinophils % 2.2 % (0.1-12.0); Hematocrit 29.2 % (37.0-47.0); Hemoglobin 9.6 g/dL (12.2-16.2); Lymphocytes # 0.7 K/mm3 (0.7-4.5); Lymphocytes % 14.5 K/mm3 (10-50); Mean Corpuscular HGB Conc 32.9 g/dL (31.8-35.4); Mean Corpuscular Hemoglobin 26.6 pg (27.0-31.2); Mean Corpuscular Volume 80.9 fl (81-99); Mean Platelet Volume 8.7 fl (7.4-10.4); Monocytes # 0.5 K/mm3 (0.1-1.0); Monocytes % 10.2 % (1.7-9.3); Neutrophils # 3.5 K/mm3 (1.8-7.8); Neutrophils % 72.6 % (37.0-80.0); Platelet Count 175 K/mm3 (142-424); Red Cell Distribution Width 14.9 % (11.5-17.5); White Blood Count 4.8 K/mm3 (4.8-10.8)
--- NOTE | 2017-06-12 10:53 | XR_ITS ---
XR chest portable PICC plac Ordering Physician: Juan Felipe MD Patient Age: 82 years: Female HISTORY: ITS.REASON: Confirm PICC line placement TECHNIQUE: AP portable upright chest COMPARISON :06/10/2017 CXR FINDINGS PICC line enters from right with tip at the SVC above the RA. Good position. PICC line. . increased markings with ill-defined ll-defined infiltrate Right lower lobe again noted with no significant change since previous study. Question minimal perihilar infiltrate as well. Cardiomegaly. Calcified mitral annulus. Calcified aortic knob Suggestion mild vascular engorgement and question borderline CHF. No pleural effusion no overt CHF. Critical result called to Kush PICC line nurse on 06/12/2017 3:45 PM.. Report called to the floor IMPRESSION New PICC line in place & satisfactory position with tip at SVC. Right lower lobe infiltrate/pneumonia persists with no significant change. Perhaps incremental improvement. Question mild persistent perihilar infiltrate/central airway inflammatory changes. Cardiomegaly. There may be some minimal infiltrate at the The 2 images. Little if any improvement. Mild perihilar infiltrate and a remain as well similar unchanged
--- NOTE | 2017-06-12 13:08 | SW/DCPLANNER ---
Updated information has been faxed to [facility]. I have spoke with Analia to let her know patient will be coming back with a PICC line for 6 days of INVANZ and could potentially discharge back this afternoon.
--- NOTE | 2017-06-12 15:45 | DIET.NUTRFU ---
p has been on full liquid diet for several days and is requesting solid food. Dx of antral ulcers and pt has received 4 units of blood. PO intakes remain poor, 25-50% of diet. She is requesting Ensure supplements and drinks these with good acceptance. She has been given lasix for soa. New weight obtained 186 lbs, wt is up 3.8 lbs. Recommend diet advance to mechanical soft chopped when pt is safe for advancement. Will provide ensure supplements while po intakes remain poor.
--- NOTE | 2017-06-12 18:01 | PC.NURSE ---
Patient resting in bed. Denies any pain or discomfort at this time. NO sign or symptom of distress noted. Call light with in reach. PICC line inserted today by Leticia Godinez and patient tolerated this well. Left side flaccid related to previous history of a stroke. Continues to require O2 @ 2l/min via nasal cannula.
--- NOTE | 2017-06-12 19:42 | PC.NURSE ---
report given to ÁNGEL Reich.
[2017-06-13] VITALS (20 sets, daily range): BP systolic 106–166; BP diastolic 53–76; PULSE 60–90; RESP 18–22; TEMP 36.6–37.2; O2SAT 92–98
--- NOTE | 2017-06-13 02:14 | PC.NURSE ---
CALLED DR GOODE AT 0210. REPORTED 4 AND 5 BEAT RUN OF VTACH. PATIENT ASYMPTOMATIC. ORDERED CBC,BMP,MAG, PHOS FOR 0600. HAS REST WELL THIS SHIFT. HAS SOME WHEEZES BILAT, RESP EVEN AND NONLABORED. DENIES SOA AT THIS TIME. IV IS PATENT, TUBING AND IV LABELED. HAS NO NEEDS AT THIS TIME. BED LOCKED IN LOW POSITION, SIDE RALES UP X 2. WILL CONTINUE TO MONITOR.
[2017-06-13 06:53] LABS: Basophils % 0.5 % (0.1-2.0); Eosinophils # 0.2 K/mm3 (0.0-0.4); Hemoglobin 9.5 g/dL (12.2-16.2); Lymphocytes % 18.6 K/mm3 (10-50); Mean Corpuscular HGB Conc 32.4 g/dL (31.8-35.4); Mean Corpuscular Hemoglobin 26.3 pg (27.0-31.2); Mean Corpuscular Volume 81.3 fl (81-99); Mean Platelet Volume 8.4 fl (7.4-10.4); Monocytes # 0.5 K/mm3 (0.1-1.0); Monocytes % 10.6 % (1.7-9.3); Neutrophils # 3.4 K/mm3 (1.8-7.8); Neutrophils % 66.3 % (37.0-80.0); Platelet Count 184 K/mm3 (142-424); Red Blood Count 3.62 M/mm3 (4.20-5.40); Red Cell Distribution Width 14.8 % (11.5-17.5); White Blood Count 5.1 K/mm3 (4.8-10.8)
[2017-06-13 06:58] LABS: Anion Gap 7.3 mEq/L (5-15); Blood Urea Nitrogen 15 mg/dL (7-18); Carbon Dioxide 29 mmol/L (21.0-32.0); Chloride 93 mmol/L (98-107); Creatinine Clearance Estimated 58 mL/min (0-300); Creatinine,Serum 0.79 mg/dL (0.55-1.02); Estimated Glomerular Filt Rate 70 ml/min (>60); GFR (African American) 84 ML/MIN (>60); Glucose 93 mg/dL (74-106); Magnesium 1.6 mg/dL (1.4-2.2); Phosphorous 2.4 mg/dL (2.4-4.9); Potassium 4.3 mmoL/L (3.5-5.1); Sodium 125 mmol/L (136-145)
[2017-06-13 07:04] LABS: Hematocrit 29.5 % (37.0-47.0)
--- NOTE | 2017-06-13 07:31 | PC.NURSE ---
REPORT GIVEN TO Wilfrid BURROUGHS
--- NOTE | 2017-06-13 08:37 | HMH.ACPN ---
Internal Medicine - PN: Subj *Date: 06/13/17 *Time: 08:44 Interval history: Noted with a 4-5 beat run of V-tach during the night. She was asymptomatic. Denies CP, SOA this AM. Appetite still down. No abdominal pain. No further bloody stools. Exam Vital signs and Labs for Last 24 Hours: Temp Pulse Resp BP Pulse Ox 98.0 F 67 18 166/73 98 06/13/17 08:00 06/13/17 08:00 06/13/17 08:00 06/13/17 08:00 06/13/17 08:00 Laboratory Results - last 24 hr 06/12/17 08:49: WBC 4.8 D, RBC 3.60 L, Hgb 9.6 L, Hct 29.2 L, MCV 80.9 L, MCH 26.6 L, MCHC 32.9, RDW 14.9, Plt Count 175, MPV 8.7, Neut % (Auto) 72.6, Lymph % (Auto) 14.5, Will % (Auto) 10.2 H, Eos % (Auto) 2.2, Baso % (Auto) 0.5, Neut # (Auto) 3.5, Lymph # (Auto) 0.7, Will # (Auto) 0.5, Eos # (Auto) 0.1, Baso # (Auto) 0.0 06/13/17 06:25: WBC 5.1, RBC 3.62 L, Hgb 9.5 L, Hct 29.5 L, MCV 81.3, MCH 26.3 L, MCHC 32.4, RDW 14.8, Plt Count 184, MPV 8.4, Neut % (Auto) 66.3, Lymph % (Auto) 18.6, Will % (Auto) 10.6 H, Eos % (Auto) 4.0, Baso % (Auto) 0.5, Neut # (Auto) 3.4, Lymph # (Auto) 1.0, Will # (Auto) 0.5, Eos # (Auto) 0.2, Baso # (Auto) 0.0 06/13/17 06:25: Sodium 125 L, Potassium 4.3, Chloride 93 L, Carbon Dioxide 29, Anion Gap 7.3, BUN 15, Creatinine 0.79, Estimated Creat Clear 58, Estimated GFR 70, Est GFR ( Amer) 84, Glucose 93, Phosphorus 2.4, Magnesium 1.6 I & O for Last 24 hours: Intake & Output 06/10/17 06/11/17 06/12/17 06/13/17 11:59 11:59 11:59 11:59 Intake Total 1680 / 1680 5260 / 5260 1815 600 / 600 Output Total 802 / 802 Balance 1680 / 1680 5260 / 5260 1815 -202 / -202 Weight 186 lb 4 oz Narrative: Laboratory Results - last 24 hr 06/12/17 08:49: WBC 4.8 D, RBC 3.60 L, Hgb 9.6 L, Hct 29.2 L, MCV 80.9 L, MCH 26.6 L, MCHC 32.9, RDW 14.9, Plt Count 175, MPV 8.7, Neut % (Auto) 72.6, Lymph % (Auto) 14.5, Will % (Auto) 10.2 H, Eos % (Auto) 2.2, Baso % (Auto) 0.5, Neut # (Auto) 3.5, Lymph # (Auto) 0.7, Will # (Auto) 0.5, Eos # (Auto) 0.1, Baso # (Auto) 0.0 06/13/17 06:25: WBC 5.1, RBC 3.62 L, Hgb 9.5 L, Hct 29.5 L, MCV 81.3, MCH 26.3 L, MCHC 32.4, RDW 14.8, Plt Count 184, MPV 8.4, Neut % (Auto) 66.3, Lymph % (Auto) 18.6, Will % (Auto) 10.6 H, Eos % (Auto) 4.0, Baso % (Auto) 0.5, Neut # (Auto) 3.4, Lymph # (Auto) 1.0, Will # (Auto) 0.5, Eos # (Auto) 0.2, Baso # (Auto) 0.0 06/13/17 06:25: Sodium 125 L, Potassium 4.3, Chloride 93 L, Carbon Dioxide 29, Anion Gap 7.3, BUN 15, Creatinine 0.79, Estimated Creat Clear 58, Estimated GFR 70, Est GFR ( Amer) 84, Glucose 93, Phosphorus 2.4, Magnesium 1.6 - Constitutional no acute distress - *Routine Respiratory Exam Comments: clear anteriorly - *Routine Cardiovascular Exam Present: irregularly irregular - *Routine Abdominal Exam Present: soft. Absent: tenderness, distended - *Routine Extremities Exam Absent: edema Assessment and Plan (1) HCAP (healthcare-associated pneumonia) Current visit: Yes Status: Acute Category: Medical Code(s): J18.9 - Pneumonia, unspecified organism (2) Peptic ulcer disease Current visit: Yes Status: Acute Category: Medical Code(s): K27.9 - Peptic ulcer, site unspecified, unspecified as acute or chronic, without hemorrhage or perforation (3) Anemia due to acute blood loss Current visit: Yes Status: Acute Category: Medical Code(s): D62 - Acute posthemorrhagic anemia (4) History of CVA with residual deficit Current visit: Yes Status: Acute Category: Medical Code(s): I69.30 - Unspecified sequelae of cerebral infarction (5) Hyponatremia Current visit: Yes Status: Acute Category: Medical Code(s): E87.1 - Hypo-osmolality and hyponatremia (6) LBBB (left bundle branch block) Current visit: Yes Status: Acute Category: Medical Code(s): I44.7 - Left bundle-branch block, unspecified (7) A-fib Current visit: Yes Status: Chronic Category: Medical Code(s): I48.91 - Unspecified atrial fibrillat
--- NOTE | 2017-06-13 08:40 | P.PN_ITS ---
Internal Medicine - PN: Subj *Date: 06/13/17 *Time: 08:44 Interval history: Noted with a 4-5 beat run of V-tach during the night. She was asymptomatic. Denies CP, SOA this AM. Appetite still down. No abdominal pain. No further bloody stools. Exam Vital signs and Labs for Last 24 Hours: Temp Pulse Resp BP Pulse Ox 98.0 F 67 18 166/73 98 06/13/17 08:00 06/13/17 08:00 06/13/17 08:00 06/13/17 08:00 06/13/17 08:00 Laboratory Results - last 24 hr 06/12/17 08:49: WBC 4.8 D, RBC 3.60 L, Hgb 9.6 L, Hct 29.2 L, MCV 80.9 L, MCH 26.6 L, MCHC 32.9, RDW 14.9, Plt Count 175, MPV 8.7, Neut % (Auto) 72.6, Lymph % (Auto) 14.5, [place] % (Auto) 10.2 H, Eos % (Auto) 2.2, Baso % (Auto) 0.5, Neut # (Auto) 3.5, Lymph # (Auto) 0.7, [place] # (Auto) 0.5, Eos # (Auto) 0.1, Baso # ( Auto) 0.0 06/13/17 06:25: WBC 5.1, RBC 3.62 L, Hgb 9.5 L, Hct 29.5 L, MCV 81.3, MCH 26.3 L , MCHC 32.4, RDW 14.8, Plt Count 184, MPV 8.4, Neut % (Auto) 66.3, Lymph % (Auto ) 18.6, [place] % (Auto) 10.6 H, Eos % (Auto) 4.0, Baso % (Auto) 0.5, Neut # (Auto ) 3.4, Lymph # (Auto) 1.0, [place] # (Auto) 0.5, Eos # (Auto) 0.2, Baso # (Auto) 0.0 06/13/17 06:25: Sodium 125 L, Potassium 4.3, Chloride 93 L, Carbon Dioxide 29, Anion Gap 7.3, BUN 15, Creatinine 0.79, Estimated Creat Clear 58, Estimated GFR 70, Est GFR ( Amer) 84, Glucose 93, Phosphorus 2.4, Magnesium 1.6 I & O for Last 24 hours: Intake & Output 06/10/17 06/11/17 06/12/17 06/13/17 11:59 11:59 11:59 11:59 Intake Total 1680 / 1680 5260 / 5260 1815 600 / 600 Output Total 802 / 802 Balance 1680 / 1680 5260 / 5260 1815 -202 / -202 Weight 186 lb 4 oz Narrative: Laboratory Results - last 24 hr 06/12/17 08:49: WBC 4.8 D, RBC 3.60 L, Hgb 9.6 L, Hct 29.2 L, MCV 80.9 L, MCH 26.6 L, MCHC 32.9, RDW 14.9, Plt Count 175, MPV 8.7, Neut % (Auto) 72.6, Lymph % (Auto) 14.5, [place] % (Auto) 10.2 H, Eos % (Auto) 2.2, Baso % (Auto) 0.5, Neut # (Auto) 3.5, Lymph # (Auto) 0.7, [place] # (Auto) 0.5, Eos # (Auto) 0.1, Baso # ( Auto) 0.0 06/13/17 06:25: WBC 5.1, RBC 3.62 L, Hgb 9.5 L, Hct 29.5 L, MCV 81.3, MCH 26.3 L , MCHC 32.4, RDW 14.8, Plt Count 184, MPV 8.4, Neut % (Auto) 66.3, Lymph % (Auto ) 18.6, [place] % (Auto) 10.6 H, Eos % (Auto) 4.0, Baso % (Auto) 0.5, Neut # (Auto ) 3.4, Lymph # (Auto) 1.0, [place] # (Auto) 0.5, Eos # (Auto) 0.2, Baso # (Auto) 0.0 06/13/17 06:25: Sodium 125 L, Potassium 4.3, Chloride 93 L, Carbon Dioxide 29, Anion Gap 7.3, BUN 15, Creatinine 0.79, Estimated Creat Clear 58, Estimated GFR 70, Est GFR ( Amer) 84, Glucose 93, Phosphorus 2.4, Magnesium 1.6 - Constitutional no acute distress - *Routine Respiratory Exam Comments: clear anteriorly - *Routine Cardiovascular Exam Present: irregularly irregular - *Routine Abdominal Exam Present: soft. Absent: tenderness, distended - *Routine Extremities Exam Absent: edema Assessment and Plan (1) HCAP (healthcare-associated pneumonia) Current visit: Yes Status: Acute Category: Medical Code(s): J18.9 - Pneumonia, unspecified organism (2) Peptic ulcer disease Current visit: Yes Status: Acute Category: Medical Code(s): K27.9 - Peptic ulcer, site unspecified, unspecified as acute or chronic, without hemorrhage or perforation (3) Anemia due to acute blood loss Current visit: Yes Status: Acute Category: Medical Code(s): D62 - Acute posthemorrhagic anemia (4) History of CVA with residual deficit Current visit: Yes Status: Acute [place]ateg[place]
--- NOTE | 2017-06-13 11:06 | SW/DCPLANNER ---
I have spoke with Analia at [place] [facility] to inform her that this patient is currently ready for discharge. However, due to road conditions ambulance will not be transporting today. Plan is for patient to discharge back to [place] [facility] tomorrow 06/14/17.
--- NOTE | 2017-06-13 17:04 | PC.NURSE ---
PICC line dressing changed by this nurse. Patient tolerated this well. No sign or symptom of distress noted at this time. No complaints voiced. Resting in bed quietly watching tv.
[2017-06-14] VITALS (9 sets, daily range): BP systolic 126–187; BP diastolic 74–92; PULSE 56–70; RESP 18–22; TEMP 36.7–37.3; O2SAT 89–95
--- NOTE | 2017-06-14 01:56 | PC.NURSE ---
PT WAS COMFORTABLE AND DID NOT WANT TO BE TURNED. NURSE NOTIFIED
--- NOTE | 2017-06-14 03:16 | PC.NURSE ---
Addendum entered by Breann Terry RN 06/14/17 03:48: NSR ON [employer] Original Note: PT RESTED WELL ALL SHIFT. PT WEANED TO RA, TOLERATED WELL. DENIED PAIN THIS SHIFT. BOWEL SOUNDS ACTIVE IN ALL FOUR QUADRANTS. PICC LINE NOTED TO RODRIGO, SOLG CDI, LINE PATENT WITH GOOD BLOOD RETURN. PT IS FLACCID ON LEFT SIDE (PT BASELINE). WHEEZING NOTED DURING LUNG AUSCULTATION. A&OX3. VSS. NO ACUTE DISTRESS NOTED, CONTINUE TO MONITOR.
--- NOTE | 2017-06-14 04:20 | PC.NURSE ---
REPORTED PTS ELEVATED BP TO NURSE
--- NOTE | 2017-06-14 04:22 | PC.NURSE ---
PT DID NOT WANT TO BE TURNED WHEN OFFERED AT THIS TIME/ NURSE NOTIFIED
--- NOTE | 2017-06-14 06:39 | PC.NURSE ---
PT DID NOT WANT TO BE TURNED WHEN OFFERED AT THIS TIME. NURSE WAS NOTIFIED OF PT DIFFERENCE
--- NOTE | 2017-06-14 07:25 | PC.NURSE ---
REPORT GIVEN TO Melisa BURROUGHS
--- NOTE | 2017-06-14 07:30 | PC.NURSE ---
REPORT GIVEN TO Edgardo DURAN
--- NOTE | 2017-06-14 08:12 | HMH.ACPN ---
Internal Medicine - PN: Subj *Date: 06/14/17 *Time: 08:12 Interval history: Does not eat breakfast; slept some last night; denies CP and SOB Exam Vital signs and Labs for Last 24 Hours: Temp Pulse Resp BP Pulse Ox 99.1 F 64 18 187/76 94 L 06/14/17 08:02 06/14/17 08:02 06/14/17 08:02 06/14/17 08:02 06/14/17 08:02 Laboratory Results - last 24 hr 06/07/17 00:15: Blood Type B Positive, Antibody Screen Negative, Crossmatch (AHG) See Detail I & O for Last 24 hours: Intake & Output 06/11/17 06/12/17 06/13/17 06/14/17 11:59 11:59 11:59 11:59 Intake Total 5260 / 5260 1816 / 1816 600 / 600 610 / 610 Output Total 802 / 802 Balance 5260 / 5260 1816 / 1816 -202 / -202 610 / 610 Weight 186 lb 4 oz 175 lb 7 oz - Constitutional no acute distress - *Routine Respiratory Exam Present: CTA bilaterally - *Routine Cardiovascular Exam Present: RRR, murmur - *Routine Abdominal Exam Present: soft, normoactive bowel sounds. Absent: tenderness - *Routine Extremities Exam Absent: edema Comments: ZAK woodward on - *Routine Neurological Exam Present: alert Assessment and Plan (1) CAD (coronary artery disease) Current visit: Yes Status: Chronic Category: Medical Code(s): I25.10 - Atherosclerotic heart disease of [place] coronary artery without angina pectoris (2) A-fib Current visit: Yes Status: Chronic Category: Medical Code(s): I48.91 - Unspecified atrial fibrillation (3) Hypothyroidism Current visit: Yes Status: Chronic Category: Medical Code(s): E03.9 - Hypothyroidism, unspecified (4) Hyponatremia Current visit: Yes Status: Acute Category: Medical Code(s): E87.1 - Hypo-osmolality and hyponatremia (5) Renal insufficiency Current visit: Yes Status: Chronic Category: Medical Code(s): N28.9 - Disorder of kidney and ureter, unspecified (6) HTN (hypertension) Current visit: Yes Status: Chronic Category: Medical Code(s): I10 - Essential (primary) hypertension (7) Osteoarthritis Current visit: Yes Status: Chronic Category: Medical Code(s): M19.90 - Unspecified osteoarthritis, unspecified site (8) Anemia Current visit: Yes Status: Acute Qualifiers: Anemia type: unspecified type Qualified Code(s): D64.9 - Anemia, unspecified Category: Medical Code(s): D64.9 - Anemia, unspecified (9) HCAP (healthcare-associated pneumonia) Current visit: Yes Status: Acute Category: Medical Code(s): J18.9 - Pneumonia, unspecified organism (10) LBBB (left bundle branch block) Current visit: Yes Status: Acute Category: Medical Code(s): I44.7 - Left bundle-branch block, unspecified - Assessment and plan all Dx Assessment and Plan for all problems:: was unable to transport to [place] yesterday due to the weather; will be able to discharge to [place] today; see discharge
--- NOTE | 2017-06-14 08:15 | P.PN_ITS ---
Internal Medicine - PN: Subj *Date: 06/14/17 *Time: 08:12 Interval history: Does not eat breakfast; slept some last night; denies CP and SOB Exam Vital signs and Labs for Last 24 Hours: Temp Pulse Resp BP Pulse Ox 99.1 F 64 18 187/76 94 L 06/14/17 08:02 06/14/17 08:02 06/14/17 08:02 06/14/17 08:02 06/14/17 08:02 Laboratory Results - last 24 hr 06/07/17 00:15: Blood Type B Positive, Antibody Screen Negative, Crossmatch (AHG ) See Detail I & O for Last 24 hours: Intake & Output 06/11/17 06/12/17 06/13/17 06/14/17 11:59 11:59 11:59 11:59 Intake Total 5260 / 5260 1816 / 1816 600 / 600 610 / 610 Output Total 802 / 802 Balance 5260 / 5260 1816 / 1816 -202 / -202 610 / 610 Weight 186 lb 4 oz 175 lb 7 oz - Constitutional no acute distress - *Routine Respiratory Exam Present: CTA bilaterally - *Routine Cardiovascular Exam Present: RRR, murmur - *Routine Abdominal Exam Present: soft, normoactive bowel sounds. Absent: tenderness - *Routine Extremities Exam Absent: edema Comments: ZAK woodward on - *Routine Neurological Exam Present: alert Assessment and Plan (1) CAD (coronary artery disease) Current visit: Yes Status: Chronic Category: Medical Code(s): I25.10 - Atherosclerotic heart disease of [place] coronary artery without angina pectoris (2) A-fib Current visit: Yes Status: Chronic Category: Medical Code(s): I48.91 - Unspecified atrial fibrillation (3) Hypothyroidism Current visit: Yes Status: Chronic Category: Medical Code(s): E03.9 - Hypothyroidism, unspecified (4) Hyponatremia Current visit: Yes Status: Acute Category: Medical Code(s): E87.1 - Hypo- osmolality and hyponatremia (5) Renal insufficiency Current visit: Yes Status: Chronic Category: Medical Code(s): N28.9 - Disorder of kidney and ureter, unspecified (6) HTN (hypertension) Current visit: Yes Status: Chronic Category: Medical Code(s): I10 - Essential (primary) hypertension (7) Osteoarthritis Current visit: Yes Status: Chronic Category: Medical Code(s): M19.90 - Unspecified osteoarthritis, unspecified site (8) Anemia Current visit: Yes Status: Acute Qualifiers: Anemia type: unspecified type Qualified Code(s): D64.9 - Anemia, unspecified Category: Medical Code(s): D64.9 - Anemia, unspecified (9) HCAP (healthcare-associated pneumonia) Current visit: Yes Status: Acute Category: Medical Code(s): J18.9 - Pneumonia, unspecified organism (10) LBBB (left bundle branch block) Current visit: Yes Status: Acute Category: Medical Code(s): I44.7 - Left bundle-branch block, unspecified - Assessment and plan all Dx Assessment and Plan for all problems:: was unable to transport to [place] yesterday due to the weather; will be able to discharge to [place] today; see discharge
--- NOTE | 2017-06-14 08:44 | HMH.DCSUM ---
General - General Admission date: 06/06/17 <Juan Felipe - 06/14/17 08:58> Discharge date: 06/14/17 <Heidi Phamhy 06/14/17 09:12> HPI HPI: Patient is an 82-[facility]-old [facility] resident with a history of chronic atrial fibrillation, aortic stenosis, prior CVA in 2011, myocardial infarction in 2016, on Xarelto. SHe was sent to [facility] ER with 5 days of worsening cough and SOA. On evaluation in the ER she was found to be anemic with HGB of 22 and had a RLL pneumonia. She was admitted for blood transfusion, w/u of her anemia and treatment of her pneumonia. <Juan Felipe - 06/14/17 11:58> Objective Vital signs: Temp Pulse Resp BP Pulse Ox 99.1 F 64 18 187/76 94 L 06/14/17 08:02 06/14/17 08:02 06/14/17 08:02 06/14/17 08:02 06/14/17 08:02 <Luz Pham 06/14/17 09:12> Temp Pulse Resp BP Pulse Ox 99.1 F 64 18 187/76 94 L 06/14/17 08:02 06/14/17 08:02 06/14/17 08:02 06/14/17 08:02 06/14/17 08:02 <Juan Felipe - 06/14/17 08:58> Narrative: Constitutional no acute distress, cooperative <Luz Pham 06/07/17 09:26> - *Routine HEENT Exam Head: Present: normocephalic, atraumatic <Luz Pham 06/07/17 09:26> ENT: Present: mucous membranes moist <Luz Pham 06/07/17 09:26> - *Routine Neck Exam Present: supple. Absent: carotid bruit, lymphadenopathy, thyromegaly, tenderness, swelling <Luz Pham 06/07/17 09:26> - *Routine Respiratory Exam Present: crackles (bilateral bases) <Luz Pham 06/07/17 09:26> - *Routine Cardiovascular Exam Present: RRR <Luz Pham 06/07/17 09:26> - *Routine Abdominal Exam Present: soft, normoactive bowel sounds. Absent: tenderness, distended <Luz Pham - 06/07/17 09:26> - *Routine Extremities Exam Absent: edema, calf tenderness <Luz Pham - 06/07/17 09:26> - *Routine Neurological Exam Present: alert, oriented X3 <Luz Pham - 06/07/17 09:26> <Luz Pham - 06/14/17 09:16> Hospital Course Hospital Course: ADDENDUM TO Jyoti LOPEZ NOTE BELOW: On the night of 06/10/17, she had an episode of dyspnea that improved with Lasix. Repeat CXR showed some fluid overload and no significant improvment in her pneumonia and her WBC increased as well. With these events, her fluids were decreased, she was started on Lasix dailly and Ertapenem was added to her antibiotic regimen. She had no further episodes of dyspnea and her WBC came down. F/u CXR showed persistent RLL infiltrate but clinically she was improved. SHe was never able to produce a sputum sample. Her flu test was negative. SHe will be discharged back to [place] on Ertapenem daily x 7 days. Her H&H remained stable after 4 units of PRBCs and treatment of her peptic ulcer. Dr. Burciaga did not feel any further GI workup was indicated at this time as there was no indication of active bleeding. Also the patient stated she would not consent to a colonoscopy. Her Xarelto and ASA were held during the admission and it is recommended these remain on hold for an addtional 2 weeks then may be resumed if no further bleeding. <Juan Felipe - 06/14/17 11:58> Patient was started on ABX and duonebs for her pneumonia. She was given a total of 4 units of PRBC. She had an EGD by DR. Burciaga on 06/09/17 which showed a HH and prepyloric shallow antral ulcers. She was started on a PPI and sucralfate. She began to tolerate her diet. She preferred to NOT get OOB; She did have an episode of SOB one night which was relieved with lasix. She was started on daily lasix. She was also noted to have a 4-5 run of VT . She was asymptomatic with this. The cough did improve. She had no further dark stools. She had no abdominal pain and denied SOB and CP. On 06/13/17 she was stable to be discharged back to [facility]. She did have to wait for transport to the facility until 06/14/17 due to the weather. See discharge
--- NOTE | 2017-06-14 08:50 | P.DS_ITS ---
General - General Admission date: 06/06/17 <Juna Felipe - 06/14/17 08:58> Discharge date: 06/14/17 <Heidi Phamhy 06/14/17 09:12> HPI HPI: [facility] an 82[facility] with a history of chronic atrial fibrillation, aortic stenosis, prior CVA in 2011, myocardial infarction in 2016, on Xarelto. SHe was sent to [facility] ER with 5 days of worsening cough and SOA. On evaluation in the ER she was found to be anemic with HGB of 22 and had a RLL pneumonia. She was admitted for blood transfusion, w/u of her anemia and treatment of her pneumonia. <Juan Felipe - 06/14/17 11:58> Objective Vital signs: Temp Pulse Resp BP Pulse Ox 99.1 F 64 18 187/76 94 L 06/14/17 08:02 06/14/17 08:02 06/14/17 08:02 06/14/17 08:02 06/14/17 08:02 <Luz Phma 06/14/17 09:12> Temp Pulse Resp BP Pulse Ox 99.1 F 64 18 187/76 94 L 06/14/17 08:02 06/14/17 08:02 06/14/17 08:02 06/14/17 08:02 06/14/17 08:02 <Juan Felipe - 06/14/17 08:58> Narrative: Constitutional no acute distress, cooperative <Luz Pham 06/07/17 09:26> - *Routine HEENT Exam Head: Present: normocephalic, atraumatic <Luz Pham 06/07/17 09:26> ENT: Present: mucous membranes moist <Luz Pham 06/07/17 09:26> - *Routine Neck Exam Present: supple. Absent: carotid bruit, lymphadenopathy, thyromegaly, tenderness, swelling <Luz Pham 06/07/17 09:26> - *Routine Respiratory Exam Present: crackles (bilateral bases) <Luz Pham 06/07/17 09:26> - *Routine Cardiovascular Exam Present: RRR <Luz Pham 06/07/17 09:26> - *Routine Abdominal Exam Present: soft, normoactive bowel sounds. Absent: tenderness, distended < Luz Pham - 06/07/17 09:26> - *Routine Extremities Exam Absent: edema, calf tenderness <Luz Pham - 06/07/17 09:26> - *Routine Neurological Exam Present: alert, oriented X3 <Luz Pham - 06/07/17 09:26> <Luz Pham - 06/14/17 09:16> Hospital Course Hospital Course: ADDENDUM TO Jyoti LOPEZ NOTE BELOW: On the night of 06/10/17, she had an episode of dyspnea that improved with Lasix. Repeat CXR showed some fluid overload and no significant improvment in her pneumonia and her WBC increased as well. With these events, her fluids were decreased, she was started on Lasix dailly and Ertapenem was added to her antibiotic regimen. She had no further episodes of dyspnea and her WBC came down. F/u CXR showed persistent RLL infiltrate but clinically she was improved. SHe was never able to produce a sputum sample. Her flu test was negative. SHe will be discharged back to [place] on Ertapenem daily x 7 days. Her H&H remained stable after 4 units of PRBCs and treatment of her peptic ulcer. Dr. Burciaga did not feel any further GI workup was indicated at this time as there was no indication of active bleeding. Also the patient stated she would not consent to a colonoscopy. Her Xarelto and ASA were held during the admission and it is recommended these remain on hold for an addtional 2 weeks then may be resumed if no further bleeding. <Juan Felipe - 06/14/17 11:58> Patient was started on ABX and duonebs for her pneumonia. She was given a total of 4 units of PRBC. She had an EGD by DR. Burciaga on 06/09/17 which showed a HH and prepyloric shallow antral ulcers. She was started on a PPI and sucralfate. She began to tolerate her diet. She preferred to NOT get OOB; She did have an episode of SOB one night which was r
== END 2017-06-14 14:40 | disposition home or self-care (01) | DRG 811 ==
LOC: ER 23:58 → 2ND 06-07 00:02
PROVIDERS: Family Medicine; Nurse Practitioner Family; Surgery; Admitting Provider Family Medicine; Emergency Provider Emergency Medicine; Visit Provider Family Medicine
PROC: 0DJ08ZZ Inspection of Upper Intestinal Tract, Via Natural or Artificial Opening Endoscopic (ICD-10-PCS; CPT 43235; principal; 2017-06-09 11:30)
DX: D62 Acute posthemorrhagic anemia (principal); J18.9 Pneumonia, unspecified organism; I69.354 Hemiplegia and hemiparesis following cerebral infarction affecting left non-dominant side; I48.2 Chronic atrial fibrillation; E87.1 Hypo-osmolality and hyponatremia; I44.7 Left bundle-branch block, unspecified; I35.0 Nonrheumatic aortic (valve) stenosis; Y95 Nosocomial condition; I10 Essential (primary) hypertension; I25.10 Atherosclerotic heart disease of native coronary artery without angina pectoris; E03.9 Hypothyroidism, unspecified; K25.9 Gastric ulcer, unspecified as acute or chronic, without hemorrhage or perforation
CPT/HCPCS: 36430; 43235; 36569; 36415; 71045; 80048; 80053; 82272; 82607; 82728; 82746; 83550; 83605; 83735; 83880; 84100; 84443; 84484; 85007; 85014; 85018; 85025; 86850; 87040; 87275; 87276; 93005; 93041; 94640; 94761; 96365; 99283; C1751; G0328; J0692; J1335; J1956; P9016

== ENCOUNTER → 2017-06-21 11:45 | Outpatient (REF) | payer MEDICARE, SELFPAY ==
[2017-06-21 12:24] LABS: Basophils % 0.6 % (0.1-2.0); Eosinophils # 0.2 K/mm3 (0.0-0.4); Eosinophils % 4.3 % (0.1-12.0); Hematocrit 30.3 % (37.0-47.0); Lymphocytes # 0.9 K/mm3 (0.7-4.5); Lymphocytes % 23.8 K/mm3 (10-50); Mean Corpuscular HGB Conc 33.1 g/dL (31.8-35.4); Mean Corpuscular Hemoglobin 26.7 pg (27.0-31.2); Mean Corpuscular Volume 80.7 fl (81-99); Mean Platelet Volume 8.9 fl (7.4-10.4); Monocytes # 0.3 K/mm3 (0.1-1.0); Monocytes % 9.1 % (1.7-9.3); Neutrophils # 2.3 K/mm3 (1.8-7.8); Neutrophils % 62.1 % (37.0-80.0); Platelet Count 185 K/mm3 (142-424); Red Blood Count 3.75 M/mm3 (4.20-5.40); Red Cell Distribution Width 14.2 % (11.5-17.5); White Blood Count 3.6 K/mm3 (4.8-10.8)
[2017-06-21 12:58] LABS: Anion Gap 12.6 mEq/L (5-15); Blood Urea Nitrogen 9 mg/dL (7-18); Carbon Dioxide 27 mmol/L (21.0-32.0); Chloride 99 mmol/L (98-107); Creatinine,Serum 0.87 mg/dL (0.55-1.02); Estimated Glomerular Filt Rate 62 ml/min (>60); GFR (African American) 75 ML/MIN (>60); Glucose 103 mg/dL (74-106); Potassium 3.6 mmoL/L (3.5-5.1); Sodium 135 mmol/L (136-145)
== END ==
LOC: LAB 11:45
PROVIDERS: Visit Provider Internal Medicine
DX: I25.10 Atherosclerotic heart disease of native coronary artery without angina pectoris (principal); E03.9 Hypothyroidism, unspecified; I10 Essential (primary) hypertension
CPT/HCPCS: 80048; 85025

== ENCOUNTER 2017-08-10 20:46 | Emergency (ER) | payer MEDICARE, MEDICAID, SELFPAY ==
[2017-08-10 20:47] VITALS: BP 153/60; PULSE 60; RESP 14; TEMP 36.8; O2SAT 97; BMI 42.5
[2017-08-10 21:16] LABS: Basophils # 0.1 K/mm3 (0-0.2); Basophils % 0.8 % (0.1-2.0); Eosinophils # 0.2 K/mm3 (0.0-0.4); Eosinophils % 2.4 % (0.1-12.0); Hematocrit 31.1 % (37.0-47.0); Hemoglobin 9.9 g/dL (12.2-16.2); Lymphocytes % 30.4 K/mm3 (10-50); Mean Corpuscular HGB Conc 31.8 g/dL (31.8-35.4); Mean Corpuscular Hemoglobin 26.3 pg (27.0-31.2); Mean Corpuscular Volume 82.7 fl (81-99); Mean Platelet Volume 9.8 fl (7.4-10.4); Monocytes # 0.6 K/mm3 (0.1-1.0); Monocytes % 8.7 % (1.7-9.3); Neutrophils # 3.9 K/mm3 (1.8-7.8); Neutrophils % 57.8 % (37.0-80.0); Platelet Count 186 K/mm3 (142-424); Red Blood Count 3.76 M/mm3 (4.20-5.40); Red Cell Distribution Width 15.2 % (11.5-17.5); White Blood Count 6.7 K/mm3 (4.8-10.8)
[2017-08-10 21:24] LABS: Alanine Aminotransferase 22 U/L (12-78); Albumin Level 3.1 gm/dL (3.4-5.0); Albumin/Globulin Ratio 0.8 (1.1-1.8); Alkaline Phosphatase 56 U/L (46-116); Aspartate Amino Transferase 19 U/L (15-37); Bilirubin,Total 0.3 mg/dL (0.2-1.0); Blood Urea Nitrogen 11 mg/dL (7-18); Calcium 8.4 mg/dL (8.5-10.1); Carbon Dioxide 24 mmol/L (21.0-32.0); Chloride 99 mmol/L (98-107); Creatinine Clearance Estimated 36 mL/min (0-300); Creatinine,Serum 0.81 mg/dL (0.55-1.02); Estimated Glomerular Filt Rate 68 ml/min (>60); GFR (African American) 82 ML/MIN (>60); Globulin 3.9 gm/dl (1.3-3.2); Glucose 99 mg/dL (74-106); Sodium 131 mmol/L (136-145)
--- NOTE | 2017-08-10 22:41 | HMH.EDGIBL ---
ED Disposition Clinical Impression: Rectal bleeding Anemia Qualifiers: Anemia type: unspecified type Qualified Code(s): D64.9 - Anemia, unspecified Disposition: Home, Self-Care Condition on Discharge: Good Instructions: DI for Skin Abscess Additional Instructions: call pcp for follow up - Critical Care Critical Care Time: No Attestation: On 08/10/17, the high probability of a clinically significant, sudden or life threatening deterioration of the following system(s) required my full and direct attention, intervention and personal management. The time I documented below is in addition to time spent performing reported procedures but includes the following listed in this critical care notation. Medical Decision Making - Medical Records Medical records reviewed: Yes: I reviewed the patient's medical records. - Christian Inquiry Pt receiving controlled substance: No Vital Signs: 08/10/17 20:47 Temperature 98.3 F Temperature Source Oral Pulse Rate [Right Radial] 60 Respiratory Rate 14 Blood Pressure [Right Arm] 153/60 Blood Pressure Mean [Right Arm] 91 Blood Pressure Source [Right Arm] Automatic Cuff Blood Pressure Position [Right Arm] Supine 02 Sat by Pulse Oximetry 97 Oxygen Delivery Method Room Air - Lab Data Lab Results 08/10/17 20:35: WBC 6.7, RBC 3.76 L, Hgb 9.9 L, Hct 31.1 L, MCV 82.7, MCH 26.3 L, MCHC 31.8, RDW 15.2, Plt Count 186, MPV 9.8, Neut % (Auto) 57.8, Lymph % (Auto) 30.4, Ness % (Auto) 8.7, Eos % (Auto) 2.4, Baso % (Auto) 0.8, Neut # (Auto) 3.9, Lymph # (Auto) 2.0, Ness # (Auto) 0.6, Eos # (Auto) 0.2, Baso # (Auto) 0.1 08/10/17 20:35: Sodium 131 L, Potassium 4.0, Chloride 99, Carbon Dioxide 24, Anion Gap 12.0, BUN 11, Creatinine 0.81, Estimated Creat Clear 36, Estimated GFR 68, Est GFR ( Amer) 82, Glucose 99, Calcium 8.4 L, Total Bilirubin 0.3, AST 19, ALT 22, Alkaline Phosphatase 56, Total Protein 7.0, Albumin 3.1 L, Globulin 3.9 H, Albumin/Globulin Ratio 0.8 L Result diagrams: 08/10/17 20:35 08/10/17 20:35 - Physician Consults Physician Consulted: drew Reason -: Pt condition GI Bleed HPI - General Chief complaint: Skin/Abscess/Foreign Body Stated complaint: skin breakdown Time Seen by Provider: 08/10/17 20:50 Mode of Arrival: EMS Source of Information: Patient, Relative, Medical Record Limitations: Physical Limitations Description of Symptoms (Recalled from ER Triage Doc. by RN): Reporting facility reports skin breakdown to bottom with small amount of bleeding - History of Present Illness HPI Narrative: sent from [facility] with [facility] after bm complaint: blood on toilet paper Onset (ago): day(s) Consistency: intermittent Severity: moderate Context: anticoagulant use - Related Data Home Medications Medication Instructions Recorded Confirmed Acetaminophen [Acetaminophen Extra 500 mg PO Q4HP PRN 06/07/17 08/10/17 Strength] Buspirone HCl [Buspar 10mg tablet] 15 mg PO TID 06/07/17 08/10/17 Docusate Sodium [Colace 250mg 250 mg PO DAILY 06/07/17 08/10/17 capsule] Escitalopram Oxalate [Lexapro] 20 mg PO HS 06/07/17 08/10/17 Fenofibrate Nanocrystallized 48 mg PO DAILY 06/07/17 08/10/17 [Tricor] Hydrocod/Acet 5/325 mg [[place] 5 mg PO HS 06/07/17 08/10/17 5/325mg tablet] Ipratropium/Albuterol Sulfate 3 ml IH TIDP PRN 06/07/17 08/10/17 [Albut-Ipratropium 2.5mg-0.5mg/3 ml] Levothyroxine Sodium [Synthroid 50 mg PO DAILY 06/07/17 08/10/17 50mcg (0.05mg) tab] Loperamide HCl [Imodium 2 mg 2 mg PO Q3HP PRN 06/07/17 08/10/17 capsule] Loratadine [Claritin 10mg Tablet] 10 mg PO DAILY 06/07/17 08/10/17 Metoprolol Tartrate [Lopressor 25 mg PO BID 06/07/17 08/10/17 25mg tablet] Montelukast Sodium [Singulair 10mg 10 mg PO PM 06/07/17 08/10/17 tablet] Multivitamin [One Daily] 1 each PO DAILY 06/07/17 08/10/17 Nitroglycerin [Nitrostat 0.4mg SL 0.4 mg SL Q5MINP PRN 06/07/17 08/10/17 Tablet] Oxybutynin Chloride [Oxybutynin 5 mg
--- NOTE | 2017-08-10 22:45 | ED_ITS ---
ED Disposition Clinical Impression: Rectal bleeding Anemia Qualifiers: Anemia type: unspecified type Qualified Code(s): D64.9 - Anemia, unspecified Disposition: Home, Self-Care Condition on Discharge: Good Instructions: DI for Skin Abscess Additional Instructions: call pcp for follow up - Critical Care Critical Care Time: No Attestation: On 08/10/17, the high probability of a clinically significant, sudden or life threatening deterioration of the following system(s) required my full and direct attention, intervention and personal management. The time I documented below is in addition to time spent performing reported procedures but includes the following listed in this critical care notation. Medical Decision Making - Medical Records Medical records reviewed: Yes: I reviewed the patient's medical records. - Christian Inquiry Pt receiving controlled substance: No Vital Signs: 08/10/17 20:47 Temperature 98.3 F Temperature Source Oral Pulse Rate [Right Radial] 60 Respiratory Rate 14 Blood Pressure [Right Arm] 153/60 Blood Pressure Mean [Right Arm] 91 Blood Pressure Source [Right Arm] Automatic Cuff Blood Pressure Position [Right Arm] Supine 02 Sat by Pulse Oximetry 97 Oxygen Delivery Method Room Air - Lab Data Lab Results 08/10/17 20:35: WBC 6.7, RBC 3.76 L, Hgb 9.9 L, Hct 31.1 L, MCV 82.7, MCH 26.3 L , MCHC 31.8, RDW 15.2, Plt Count 186, MPV 9.8, Neut % (Auto) 57.8, Lymph % (Auto ) 30.4, Swain % (Auto) 8.7, Eos % (Auto) 2.4, Baso % (Auto) 0.8, Neut # (Auto) 3.9, Lymph # (Auto) 2.0, Swain # (Auto) 0.6, Eos # (Auto) 0.2, Baso # (Auto) 0.1 08/10/17 20:35: Sodium 131 L, Potassium 4.0, Chloride 99, Carbon Dioxide 24, Anion Gap 12.0, BUN 11, Creatinine 0.81, Estimated Creat Clear 36, Estimated GFR 68, Est GFR ( Amer) 82, Glucose 99, Calcium 8.4 L, Total Bilirubin 0.3, AST 19, ALT 22, Alkaline Phosphatase 56, Total Protein 7.0, Albumin 3.1 L, Globulin 3.9 H, Albumin/Globulin Ratio 0.8 L Result diagrams: 08/10/17 20:35 08/10/17 20:35 - Physician Consults Physician Consulted: drew Reason -: Pt condition GI Bleed HPI - General Chief complaint: Skin/Abscess/Foreign Body Stated complaint: skin breakdown Time Seen by Provider: 08/10/17 20:50 Mode of Arrival: EMS Source of Information: Patient, Relative, Medical Record Limitations: Physical Limitations Description of Symptoms (Recalled from ER Triage Doc. by RN): Reporting facility reports skin breakdown to bottom with small amount of bleeding - History of Present Illness HPI Narrative: sent from [facility] with brrb after bm complaint: blood on toilet paper Onset (ago): day(s) Consistency: intermittent Severity: moderate Context: anticoagulant use - Related Data Home Medications Medication Instructions Recorded Confirmed Acetaminophen [Acetaminophen Extra 500 mg PO Q4HP PRN 06/07/17 08/10/17 Strength] Buspirone HCl [Buspar 10mg tablet] 15 mg PO TID 06/07/17 08/10/17 Docusate Sodium [Colace 250mg 250 mg PO DAILY 06/07/17 08/10/17 capsule] Escitalopram Oxalate [Lexapro] 20 mg PO HS 06/07/17 08/10/17 Fenofibrate Nanocrystallized 48 mg PO DAILY 06/07/17 08/10/17 [Tricor] Hydrocod/Acet 5/325 mg [[place] 5 mg PO HS 06/07/17 08/10/17 5/325mg tablet] Ipratropium/Albuterol Sulfate 3 ml IH TIDP PRN 06/07/17 08/10/17
[2017-08-10 22:47] VITALS: BP 136/84; PULSE 62; RESP 18; O2SAT 94
--- NOTE | 2017-08-10 22:50 | PC.NURSE ---
on phone with dr russell
[2017-08-10 23:34] VITALS: BP 149/85; PULSE 68; RESP 16; TEMP 36.8; O2SAT 94
== END 2017-08-10 23:36 | disposition home or self-care (01) ==
PROVIDERS: Emergency Provider Emergency Medicine; PCP Family Medicine
DX: K62.5 Hemorrhage of anus and rectum (principal); D64.9 Anemia, unspecified; I48.2 Chronic atrial fibrillation; I50.9 Heart failure, unspecified; J44.9 Chronic obstructive pulmonary disease, unspecified; I25.10 Atherosclerotic heart disease of native coronary artery without angina pectoris; I10 Essential (primary) hypertension
CPT/HCPCS: 80053; 85025; 99211; 99282

== ENCOUNTER → 2017-08-15 13:06 | Outpatient (REF) | payer MEDICARE, SELFPAY ==
[2017-08-15 14:29] LABS: Occult Blood,Stool Positive (Negative)
== END ==
LOC: LAB 13:06
PROVIDERS: Visit Provider Internal Medicine
DX: E86.0 Dehydration (principal)
CPT/HCPCS: 82272; G0328

== ENCOUNTER → 2017-08-18 11:51 | Outpatient (REF) | payer MEDICARE, SELFPAY ==
[2017-08-18 12:19] LABS: Occult Blood,Stool Positive (Negative)
== END ==
LOC: LAB 11:51
PROVIDERS: Visit Provider Internal Medicine
DX: D64.9 Anemia, unspecified (principal)
CPT/HCPCS: 82272; G0328

== ENCOUNTER → 2017-08-25 12:20 | Outpatient (REF) | payer MEDICARE, SELFPAY ==
[2017-08-25 13:33] LABS: Occult Blood,Stool Negative (Negative)
== END ==
LOC: LAB 12:20
PROVIDERS: Visit Provider Internal Medicine
DX: D64.9 Anemia, unspecified (principal)
CPT/HCPCS: 82272; G0328

== ENCOUNTER → 2017-09-16 01:02 | Outpatient (CLI) | payer MEDICARE, MEDICAID, SELFPAY ==
[2017-09-16 01:26] LABS: Adenovirus F 40/41, stool Not Detected (NotDetected); Astrovirus Not Detected (NotDetected); Campylobacter Not Detected (NotDetected); Cryptosporidium Not Detected (NotDetected); Cyclospora Cayetanesis Not Detected (NotDetected); Entamoeba histolytica Not Detected (NotDetected); Enteroaggregative E coli Not Detected (NotDetected); Enteropathogenic E coli Not Detected (NotDetected); Enterotoxigenic E coli Not Detected (NotDetected); Giardia lamblia Not Detected (NotDetected); Norovirus Not Detected (NotDetected); Plesimonas Shigalloides, PCR Not Detected (NotDetected); Rotavirus A Not Detected (NotDetected); Salmonella, PCR Not Detected (NotDetected); Sapovirus Not Detected (NotDetected); Shiga-like toxin E coli Not Detected (NotDetected); Shigella Enterovasive E coli Not Detected (NotDetected); Vibrio Cholerae Not Detected (NotDetected); Vibrio, PCR Not Detected (NotDetected); Yersinia Entercolitica, PCR Not Detected (NotDetected)
[2017-09-16 03:48] LABS: Clostridium Difficile A/B, PCR Detected (NotDetected)
== END ==
PROVIDERS: Visit Provider Internal Medicine
DX: D64.9 Anemia, unspecified (principal)
CPT/HCPCS: 87507

== ENCOUNTER → 2017-11-06 14:50 | Outpatient (POV) | payer MEDICARE, MEDICAID, SELFPAY | PROVIDERS: Visit Provider Nurse Practitioner Acute Care | DX: Z00.00 Encounter for general adult medical examination without abnormal findings (principal) ==

== ENCOUNTER → 2017-11-10 16:02 | Outpatient (REF) | payer MEDICARE, MEDICAID, SELFPAY ==
[2017-11-10 16:09] LABS: Adenovirus F 40/41, stool Not Detected (NotDetected); Astrovirus Not Detected (NotDetected); Campylobacter Not Detected (NotDetected); Cryptosporidium Not Detected (NotDetected); Cyclospora Cayetanesis Not Detected (NotDetected); Entamoeba histolytica Not Detected (NotDetected); Enteroaggregative E coli Not Detected (NotDetected); Enteropathogenic E coli Not Detected (NotDetected); Enterotoxigenic E coli Not Detected (NotDetected); Giardia lamblia Not Detected (NotDetected); Norovirus Not Detected (NotDetected); Plesimonas Shigalloides, PCR Not Detected (NotDetected); Rotavirus A Not Detected (NotDetected); Salmonella, PCR Not Detected (NotDetected); Sapovirus Not Detected (NotDetected); Shiga-like toxin E coli Not Detected (NotDetected); Shigella Enterovasive E coli Not Detected (NotDetected); Vibrio Cholerae Not Detected (NotDetected); Vibrio, PCR Not Detected (NotDetected); Yersinia Entercolitica, PCR Not Detected (NotDetected)
[2017-11-10 20:24] LABS: Clostridium Difficile A/B, PCR Detected (NotDetected)
== END ==
LOC: LAB 16:02
PROVIDERS: Visit Provider Internal Medicine
DX: R19.7 Diarrhea, unspecified (principal)
CPT/HCPCS: 87507

== ENCOUNTER → 2017-12-07 09:51 | Outpatient (REF) | payer MEDICARE, MEDICAID, SELFPAY | LOC: LAB 09:51 | PROVIDERS: Visit Provider Internal Medicine | DX: R19.7 Diarrhea, unspecified (principal) | CPT/HCPCS: 36415; 87045 ==

== ENCOUNTER → 2017-12-20 20:05 | Outpatient (REF) | payer MEDICARE, MEDICAID, SELFPAY ==
[2017-12-20 22:22] LABS: Occult Blood,Stool Negative (Negative)
== END ==
LOC: LAB 20:05
PROVIDERS: Visit Provider Family Medicine
DX: D64.9 Anemia, unspecified (principal)
CPT/HCPCS: 82272; G0328

== ENCOUNTER → 2019-05-29 00:27 | Outpatient (CLI) | payer MEDICARE, MEDICAID, SELFPAY ==
[2019-05-29 00:53] LABS: Microscopic, Urine URINE MICROSCOPIC (MICROSCOPIC)
[2019-05-29 01:04] LABS: Appearance,Urine SL CLOUDY (Clear); Bilirubin,Urine Negative (Negative); Blood, Urine Negative (Negative); Color,Urine YELLOW (Yellow); Glucose,Urine (UA) Negative (Negative); Ketones,Urine Negative (Negative); Leukocyte Esterase,Urine TRACE (Negative); Nitrate,Urine Negative (Negative); Protein,Urine 1+ (Negative); Specific Gravity, Urine >= 1.030 (1.005-1.030)
[2019-05-29 01:05] LABS: Squamous Epithelial Cell,Urine 20-50 #/hpf (0-5); WBC,Urine 20-50 #/hpf (0-3)
== END ==
LOC: LAB 00:39 → LAB.DROPOF 05-30 09:01
PROVIDERS: PCP Family Medicine; Visit Provider Family Medicine
DX: N39.0 Urinary tract infection, site not specified (principal)
CPT/HCPCS: 81001; 87086; 87088; 87186

== ENCOUNTER → 2019-10-04 19:27 | Outpatient (CLI) | payer MEDICARE, MEDICAID, SELFPAY ==
[2019-10-04 19:35] LABS: Adenovirus F 40/41, stool Not Detected (NotDetected); Astrovirus Not Detected (NotDetected); Campylobacter Not Detected (NotDetected); Cryptosporidium Not Detected (NotDetected); Cyclospora Cayetanesis Not Detected (NotDetected); Entamoeba histolytica Not Detected (NotDetected); Enteroaggregative E coli Not Detected (NotDetected); Enteropathogenic E coli Not Detected (NotDetected); Enterotoxigenic E coli Not Detected (NotDetected); Giardia lamblia Not Detected (NotDetected); Norovirus Not Detected (NotDetected); Plesimonas Shigalloides, PCR Not Detected (NotDetected); Rotavirus A Not Detected (NotDetected); Salmonella, PCR Not Detected (NotDetected); Sapovirus Not Detected (NotDetected); Shiga-like toxin E coli Not Detected (NotDetected); Shigella Enterovasive E coli Not Detected (NotDetected); Vibrio Cholerae Not Detected (NotDetected); Vibrio, PCR Not Detected (NotDetected); Yersinia Entercolitica, PCR Not Detected (NotDetected)
[2019-10-04 21:12] LABS: Clostridium Difficile A/B, PCR Detected (NotDetected)
== END ==
LOC: LAB 19:29 → LAB.DROPOF 19:33
PROVIDERS: PCP Family Medicine; Visit Provider Family Medicine
DX: R19.7 Diarrhea, unspecified (principal); A04.72 Enterocolitis due to Clostridium difficile, not specified as recurrent
CPT/HCPCS: 87506

== ENCOUNTER → 2020-07-11 03:13 | Outpatient (CLI) | payer MEDICARE, MEDICAID, SELFPAY ==
[2020-07-11 03:40] LABS: Microscopic, Urine URINE MICROSCOPIC (MICROSCOPIC)
[2020-07-11 03:46] LABS: Appearance,Urine SL CLOUDY (Clear); Bilirubin,Urine Negative (Negative); Blood, Urine 1+ (Negative); Color,Urine YELLOW (Yellow); Glucose,Urine (UA) Negative (Negative); Ketones,Urine Negative (Negative); Leukocyte Esterase,Urine TRACE (Negative); Nitrate,Urine POSITIVE (Negative); Protein,Urine Negative (Negative); Specific Gravity, Urine 1.025 (1.005-1.030)
[2020-07-11 03:51] LABS: Bacteria,Urine 4+ /lpf
[2020-07-11 03:53] LABS: Basophils # 0.1 K/mm3 (0-0.2); Basophils % 0.8 % (0.1-2.0); Eosinophils # 0.3 K/mm3 (0.0-0.4); Eosinophils % 4.3 % (0.1-12.0); Hematocrit 39.6 % (37.0-47.0); Hemoglobin 12.7 g/dL (12.2-16.2); Lymphocytes # 2.7 K/mm3 (0.7-4.5); Lymphocytes % 34.8 % (10-50); Mean Corpuscular Hemoglobin 28.2 pg (27.0-31.2); Mean Corpuscular Volume 88.1 fl (81-99); Monocytes # 0.7 K/mm3 (0.1-1.0); Monocytes % 8.9 % (1.7-9.3); Neutrophils % 51.1 % (37.0-80.0); Platelet Count 185 K/mm3 (142-424); Red Cell Distribution Width 14.5 % (11.5-17.5); White Blood Count 7.8 K/mm3 (4.8-10.8)
[2020-07-11 03:58] LABS: Alanine Aminotransferase 28 U/L (12-78); Albumin Level 3.6 g/dl (3.5-5.0); Albumin/Globulin Ratio 1.2 (1.1-1.8); Alkaline Phosphatase 92 U/L (38-126); Anion Gap 13.3 mEq/L (5-15); Aspartate Amino Transferase 44 U/L (14-36); Bilirubin,Total 0.7 mg/dl (0.2-1.3); Blood Urea Nitrogen 14 mg/dl (7-17); Calcium 9.2 mg/dl (8.4-10.2); Carbon Dioxide 20 mmol/L (22.0-30.0); Chloride 106 mmol/L (98-107); Estimated Glomerular Filt Rate 80 ml/min (>60); GFR (African American) 96 ML/MIN (>60); Globulin 3.1 g/dL (1.3-3.2); Glucose 89 mg/dl (74-100); Potassium 4.3 mmoL/L (3.5-5.1); Sodium 135 mmol/L (136-145); Total Protein,Serum 6.7 g/dl (6.3-8.2)
[2020-07-11 04:28] LABS: Thyroid Stimulating Hormone 2.63 uIU/mL (0.465-4.68)
== END ==
PROVIDERS: PCP Family Medicine; Visit Provider Family Medicine
DX: I25.10 Atherosclerotic heart disease of native coronary artery without angina pectoris (principal); E03.9 Hypothyroidism, unspecified; I10 Essential (primary) hypertension; N39.0 Urinary tract infection, site not specified
CPT/HCPCS: 80053; 81001; 84443; 85025; 87086; 87088; 87186

== ENCOUNTER 2020-08-04 12:45 | Emergency (ER) | payer MEDICARE, MEDICAID, SELFPAY ==
[2020-08-04 12:45] VITALS: BP 144/64; PULSE 67; RESP 16; TEMP 36.6; O2SAT 98; BMI 25.4
--- NOTE | 2020-08-04 12:47 | CT_ITS ---
PROCEDURE: CT CERVICAL SPINE WO CON CLINICAL INDICATION: fall, neck pain COMPARISON: No exams were available for comparison TECHNIQUE: Axial images obtained with sagittal and coronal reformats. All CT scans at the facility use one or more dose reduction, viz: automated exposure control, ma/kV adjustment per patient size (including targeted exams where dose is matched to indication, i.e. head), or iterative reconstruction technique. Axial spiral CT scanning performed of the cervical spine beginning at the base of the skull and continuing to the upper T-spine. 3-D multiplanar reconstruction with 3-D manipulation of volumetric data set in image rendering was completed by the radiologist and/or technologist with the supervision of the radiologist on independent workstation. FINDINGS: No fracture nor subluxation is evident. There is normal curvature and alignment. There is possible 2 mm anterolisthesis of C4 and C5 probably secondary to degenerative apophyseal joint changes. There is disc space narrowing and anterior and posterior osteophytic spurring at the C5-6 level. There is generalized osteopenia. The spinal canal is normal in size throughout. There is mild neural foraminal narrowing on the left side at C5-6 likely secondary to spurring of the uncinate joints and posterior osteophytic spurring. 1 Normal prevertebral soft tissues. Facets, neural foramen and vertebral bodies intact and unremarkable. Normal C1/C2 relationships. Apices of lungs are clear with no acute findings. IMPRESSION: Cervical spine intact with no fracture nor subluxation. 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 Raul Rg MD 08/04/2020 13:59 Dr. Raul Rg MD in [place] 08/04/2020 13:59
--- NOTE | 2020-08-04 12:47 | CT_ITS ---
PROCEDURE: CT HEAD/BRAIN WO CON CLINICAL INDICATION: fall COMPARISON: CT HDWO CT HEAD W/O CONTRAST from 04/24/2014 TECHNIQUE: Axial images obtained. All CT scans at the facility use one or more dose reduction, viz: automated exposure control, ma/kV adjustment per patient size (including targeted exams where dose is matched to indication, i.e. head), or iterative reconstruction technique. FINDINGS: The base of the skull is normal, the mastoids are clear and both internal artery canals appear normal. Basilar cisterns are mildly prominent. There is ex vacuo dilatation of the right lateral ventricle with diffuse hypodensity in the right periventricular white matter suggesting possibly an old ischemic infarct, findings unchanged from the previous exam. The sylvian fissures and cortical sulci are somewhat prominent. There are periventricular hypodensities left-side consistent with chronic ischemic white matter changes. There is no bleed and no extra-axial fluid collections. The bony calvarium appears intact. IMPRESSION: Stable findings of age-appropriate cortical atrophy and ex vacuo dilatation right lateral ventricle with probable old ischemic infarct right MCA distribution, no acute intracranial pathology noted Dictated by: Dr. Raul Rg MD 08/04/2020 13:56 Dr. Raul Rg MD in [place] 08/04/2020 13:56
--- NOTE | 2020-08-04 12:51 | HMH.EDGENADL ---
ED Disposition Clinical Impression: Fall Qualifiers: Encounter type: initial encounter Qualified Code(s): W19.XXXA - Unspecified fall, initial encounter Closed head injury Qualifiers: Encounter type: initial encounter Qualified Code(s): S09.90XA - Unspecified injury of head, initial encounter Disposition: Home, Self-Care Condition on Discharge: Fair Additional Instructions: You have been evaluated for head injury after a fall. Diagnosed with a concussion. Please take Tylenol and Motrin for pain. Follow-up with your primary care doctor. Return to the emergency department if you have any new or worsening symptoms, headache, vomiting, other concerns Time of Disposition: 14:16 - Critical Care Critical Care Time: No Attestation: On , the high probability of a clinically significant, sudden or life threatening deterioration of the following system(s) required my full and direct attention, intervention and personal management. The time I documented below is in addition to time spent performing reported procedures but includes the following listed in this critical care notation. Medical Decision Making - Medical Records Medical records reviewed: Yes: I reviewed the patient's medical records. - Christian Inquiry Pt receiving controlled substance: No Vital Signs: 08/04/20 12:45 08/04/20 13:07 08/04/20 14:00 Temperature 97.8 F Temperature Source Oral Pulse Rate [Left Radial] 67 77 64 Respiratory Rate 16 Blood Pressure [Right Arm] 144/64 H 143/87 H 157/67 H Blood Pressure Mean [Right Arm] 90 105 97 Blood Pressure Source [Right Arm] Automatic Cuff Automatic Cuff Automatic Cuff Blood Pressure Position [Right Arm] Sitting Sitting Sitting 02 Sat by Pulse Oximetry 98 93 L 95 Oxygen Delivery Method Room Air Room Air Room Air - CT Data CT Scan: Head, C-Spine Time Received: 14:[address] Reviewed: Yes: I have reviewed the patient's CT results, I have viewed the radiologist's interpretation Findings Narrative: CT head IMPRESSION: Stable findings of age-appropriate cortical atrophy and ex vacuo dilatation right lateral ventricle with probable old ischemic infarct right MCA distribution, no acute intracranial pathology noted IMPRESSION: Cervical spine intact with no fracture nor subluxation. 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 Patient clinically stable on arrival. Vital signs are within normal limits. Concern for traumatic injuries, intracranial injury. Will obtain CT head and C-spine. Noncontrast head CT unremarkable. CT of the cervical spine shows no fracture or other abnormality. On reassessment patient is stable in the emergency department. No complaints at this time. She is comfortable with plan for discharge home. General Adult HPI - General Chief complaint: Fall Stated complaint: fall Time Seen by Provider: 08/04/20 12:51 Mode of Arrival: EMS Limitations: No Limitations Description of Symptoms (Recalled from ER Triage Doc. 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 C/O mid back pain. - History of Present Illness HPI narrative: 85-year-old female presenting to the emergency department with head injury after a fall. EMS states that patient was at her senior living just prior to arrival when she slid out of her wheelchair. Nursing staff thought that she struck the back of her head on the ground. Patient says she was trying to move from the wheelchair into her bed when she fell. Simply lost her balance. She uses a wheelchair at all times. Does not walk. Patient denies any particular pain at this time. Has not given any medications. No blood thinners. - Related Data Home Medications Medication Instructions Recorded Confirmed Acetaminophen [Acetaminophen Extra 500 mg PO Q4
[2020-08-04 13:07] VITALS: BP 143/87; PULSE 77; O2SAT 93
--- NOTE | 2020-08-04 13:40 | PC.NURSE ---
Pt to rad.
[2020-08-04 14:00] VITALS: BP 157/67; PULSE 64; O2SAT 95
--- NOTE | 2020-08-04 14:20 | PC.NURSE ---
notified [facility] of transfer of pt back to [facility], states they will send transfer truck when they get back in town.
[2020-08-04 14:30] VITALS: PULSE 80; RESP 18; O2SAT 94
[2020-08-04 15:00] VITALS: BP 168/71; PULSE 68; RESP 17; O2SAT 95
[2020-08-04 15:27] VITALS: BP 141/72; PULSE 80; RESP 19; TEMP 36.6; O2SAT 97
== END 2020-08-04 15:28 | disposition home or self-care (01) ==
PROVIDERS: Emergency Provider Emergency Medicine
DX: S09.90XA Unspecified injury of head, initial encounter (principal); W18.30XA Fall on same level, unspecified, initial encounter; Y92.129 Unspecified place in nursing home as the place of occurrence of the external cause; I48.91 Unspecified atrial fibrillation; J44.9 Chronic obstructive pulmonary disease, unspecified; I25.10 Atherosclerotic heart disease of native coronary artery without angina pectoris; I10 Essential (primary) hypertension; I25.2 Old myocardial infarction; E03.9 Hypothyroidism, unspecified; Z79.899 Other long term (current) drug therapy; Z88.0 Allergy status to penicillin
CPT/HCPCS: 70450; 72125; 99284

== ENCOUNTER 2021-01-14 12:34 | Inpatient (IN) | payer MEDICARE, MEDICAID, SELFPAY ==
[2021-01-14] VITALS (18 sets, daily range): BP systolic 81–127; BP diastolic 40–70; PULSE 82–130; RESP 18–26; TEMP 36.5–36.6; O2SAT 96–100; BMI 26.6; BMI 22.6
--- NOTE | 2021-01-14 12:39 | ECG_ITS ---
APPROVED REPORT Exam: Resting ECG HR:126 bpm ECG Measurements Heart Rate 126 AXES QRSd 148 QRS -48 QT 346 T 142 QTc 501 Conclusion Atrial fibrillation with rapid ventricular response Left axis deviation Left bundle branch block Abnormal ECG Electronically signed by : Omega Schneider MD 01/15/2021 12:04:39
--- NOTE | 2021-01-14 13:02 | XR_ITS ---
PROCEDURE: XR CHEST PORTABLE CLINICAL HISTORY: SOA COMPARISON: CR [id number] XR chest portable from 06/06/2017 CR [id number] XR chest portable from 06/10/2017 CR [id number] XR chest portable PICC plac from 06/12/2017 FINDINGS: There is cardiomegaly with mild pulmonary venous congestion. Increased density is present in the right upper and right lower lobe and left mid lung consistent with bilateral pneumonia. Small left pleural effusion suspected. Degenerative changes of the shoulders. Mitral valve annular calcification is noted. IMPRESSION: Bilateral pneumonia right more extensive than left with mild CHF and small left effusion Dictated by: Shakir Monroe MD 01/14/2021 13:49 Shakir Monroe MD in [facility] 01/14/2021 13:49
[2021-01-14 13:16] LABS: Basophils % 0.3 % (0.1-2.0); Eosinophils # 0.1 K/mm3 (0.0-0.4); Eosinophils % 0.6 % (0.1-12.0); Hematocrit 43.7 % (37.0-47.0); Hemoglobin 13.6 g/dL (12.2-16.2); Lymphocytes % 10.4 % (10-50); Mean Corpuscular HGB Conc 31.2 g/dL (31.8-35.4); Mean Corpuscular Hemoglobin 26.8 pg (27.0-31.2); Mean Platelet Volume 11.2 fl (7.4-10.4); Monocytes # 0.7 K/mm3 (0.1-1.0); Monocytes % 7.3 % (1.7-9.3); Neutrophils # 7.6 K/mm3 (1.8-7.8); Neutrophils % 81.4 % (37.0-80.0); Platelet Count 217 K/mm3 (142-424); Red Blood Count 5.08 M/mm3 (4.20-5.40); Red Cell Distribution Width 15.3 % (11.5-17.5); White Blood Count 9.3 K/mm3 (4.8-10.8)
[2021-01-14 13:17] LABS: Chloride 105 mmol/L (98-107); Sodium 131 mmol/L (136-145)
[2021-01-14 13:20] LABS: Alanine Aminotransferase 26 U/L (12-78); Albumin Level 3.7 g/dl (3.5-5.0); Albumin/Globulin Ratio 1.2 (1.1-1.8); Alkaline Phosphatase 56 U/L (38-126); Aspartate Amino Transferase 36 U/L (14-36); Bilirubin,Total 0.8 mg/dl (0.2-1.3); Blood Urea Nitrogen 58 mg/dl (7-17); Calcium 8.6 mg/dl (8.4-10.2); Carbon Dioxide 14 mmol/L (22.0-30.0); Creatinine Clearance Estimated 46 mL/min (50-200); Estimated Glomerular Filt Rate 53 ml/min (>60); GFR (African American) 64 ML/MIN (>60); Globulin 3.1 g/dL (1.3-3.2); Glucose 137 mg/dl (74-100); Total Protein,Serum 6.8 g/dl (6.3-8.2)
[2021-01-14 13:24] LABS: Lactic Acid 3.3 mmol/L (0.7-2.1)
[2021-01-14 13:33] LABS: Troponin I 0.03 ng/ml (0.00-0.034)
--- NOTE | 2021-01-14 14:02 | HMH.EDGENADL ---
ED Disposition Clinical Impression: Rapid atrial fibrillation, Healthcare-associated pneumonia Congestive heart failure Qualifiers: Heart failure type: unspecified Heart failure chronicity: acute Qualified Code(s): I50.9 - Heart failure, unspecified Respiratory failure with hypoxia Qualifiers: Chronicity: acute Qualified Code(s): J96.01 - Acute respiratory failure with hypoxia Hypotension Qualifiers: Hypotension type: unspecified hypotension type Qualified Code(s): I95.9 - Hypotension, unspecified Disposition: Admitted As Inpatient Condition on Discharge: Critical - Critical Care Critical Care Time: Yes Attestation: On 01/14/21, the high probability of a clinically significant, sudden or life threatening deterioration of the following system(s) required my full and direct attention, intervention and personal management. The time I documented below is in addition to time spent performing reported procedures but includes the following listed in this critical care notation. Total Critical Care Time: 60 Vital system(s) involved:: Circulatory Failure, Respiratory Failure My critical care processes included: Assessment & monitoring of V/S, Initial and Re-exams, Data Review/Interpretation, Coordinating Care, Medication Orders and management, Documentation Medical Decision Making - Medical Records Medical records reviewed: Yes: I reviewed the patient's medical records. MR Comment: No prior echocardiograms could be found. Prior heart cath from 2016 reviewed, see below. - Christian Inquiry Pt receiving controlled substance: No Vital Signs: 01/14/21 12:34 01/14/21 13:31 01/14/21 14:12 Temperature 97.7 F Temperature Source Oral Pulse Rate 128 H Pulse Rate [Right] 125 H Respiratory Rate 26 H 26 H 22 Blood Pressure 102/61 L 89/46 L Blood Pressure [Right Arm] 109/70 L Blood Pressure Mean 64 60 Blood Pressure Mean [Right Arm] 83 02 Sat by Pulse Oximetry 97 96 97 Oxygen Delivery Method Nasal Cannula Nasal Cannula Oxygen Flow Rate (LPM) 4 4 01/14/21 14:34 01/14/21 15:01 01/14/21 15:15 Temperature Temperature Source Pulse Rate 122 H 124 H 125 H Pulse Rate [Right] Respiratory Rate 22 24 Blood Pressure 95/64 L 84/67 L 127/65 Blood Pressure [Right Arm] Blood Pressure Mean 68 70 Blood Pressure Mean [Right Arm] 02 Sat by Pulse Oximetry 96 96 97 Oxygen Delivery Method Nasal Cannula Oxygen Flow Rate (LPM) 4 01/14/21 15:48 01/14/21 16:00 01/14/21 16:31 Temperature Temperature Source Pulse Rate 129 H 124 H Pulse Rate [Right] Respiratory Rate 23 26 H 18 Blood Pressure 83/56 L 91/59 L 98/63 L Blood Pressure [Right Arm] Blood Pressure Mean 67 71 Blood Pressure Mean [Right Arm] 02 Sat by Pulse Oximetry 98 97 97 Oxygen Delivery Method Nasal Cannula Nasal Cannula Oxygen Flow Rate (LPM) 2 2 01/14/21 17:01 Temperature Temperature Source Pulse Rate 111 H Pulse Rate [Right] Respiratory Rate 21 Blood Pressure 88/59 L Blood Pressure [Right Arm] Blood Pressure Mean 64 Blood Pressure Mean [Right Arm] 02 Sat by Pulse Oximetry Oxygen Delivery Method Oxygen Flow Rate (LPM) - Lab Data Lab Results 01/14/21 12:55: WBC 9.3, RBC 5.08, Hgb 13.6, Hct 43.7, MCV 86.0, MCH 26.8 L, MCHC 31.2 L, RDW 15.3, Plt Count 217, MPV 11.2 H, Neut % (Auto) 81.4 H, Lymph % (Auto) 10.4, [place] % (Auto) 7.3, Eos % (Auto) 0.6, Baso % (Auto) 0.3, Neut # (Auto) 7.6, Lymph # (Auto) 1.0, [place] # (Auto) 0.7, Eos # (Auto) 0.1, Baso # (Auto) 0.0 01/14/21 12:55: Sodium 131 L, Potassium 5.0, Chloride 105, Carbon Dioxide 14 L, Anion Gap 17.0 H, BUN 58 H, Creatinine 1.00, Estimated Creat Clear 46, Estimated GFR 53 L, Est GFR ( Amer) 64, Glucose 137 H, Calcium 8.6, Total Bilirubin 0.8, AST 36, ALT 26, Alkaline Phosphatase 56, Troponin I 0.03, Total Protein 6.8, Albumin 3.7, Globulin 3.1, Albumin/Globulin Ratio 1.2 01/14/21 12:55: Lactate 3.3 H 01/14/21 12:55: NT-Pro-B Natriuret Pep 05475 H
--- NOTE | 2021-01-14 14:42 | PC.NURSE ---
BENJAMIN COLLAZO speaking with Dr. Felipe
--- NOTE | 2021-01-14 14:46 | CT_ITS ---
PROCEDURE: CT ANGIO CHEST PE PROTOCOL CLINCIAL INDICATION: soa Shortness of air COMPARISON: CR XR CHEST PORTABLE from 01/14/2021 TECHNIQUE: IV Contrast: 70ML Isovue 370 Axial images obtained with sagittal and coronal reformats. All CT scans at the facility use one or more dose reduction, viz: automated exposure control, ma/kV adjustment per patient size (including targeted exams where dose is matched to indication, i.e. head), or iterative reconstruction technique. FINDINGS: There are large bilateral pleural effusions. The right effusion is slightly larger than the left. There is a fluid-filled esophagus with an air-fluid level in the upper esophagus. There is cardiomegaly. There is significant reflux of contrast into the inferior vena cava and hepatic veins. The inferior vena cava is enlarged measuring 3 cm transverse. The pulmonary artery/aorta ratio is greater than 1. These findings are consistent with right heart strain or dysfunction. A nodular opacity is present in the right upper lobe at 9 mm. Significant volume loss is present in both lower lobes and may be due to compressive atelectatic changes from the large bilateral effusions. Patchy ground-glass infiltrate is present in the right and left perihilar region as well as the lingula. There are degenerative changes in the thoracic spine. 1.6 cm hypodense lesion is present in the left hepatic lobe segment 2. There is a small amount of perisplenic and perihepatic fluid as well as mild diffuse subcutaneous edema. IMPRESSION: 1. No evidence of pulmonary embolus. 2. Large bilateral pleural effusions with severe left lower lobe collapse and severe volume loss in the right lower lobe. 7 mm right apical nodule nonspecific 3. Multi chamber cardiac enlargement with reflux of contrast into a dilated inferior vena cava and hepatic veins consistent with right heart strain or dysfunction. Mildly prominent pulmonary arteries with pulmonary artery ratio greater than 1 suggesting pulmonary arterial hypertension. 4. Bilateral ground-glass infiltrates/pneumonia 5. Fluid-filled esophagus Dictated by: Shakir Monroe MD 01/14/2021 16:09 Shakir Monroe MD in [facility] 01/14/2021 16:09
[2021-01-14 14:53] LABS: Coronavirus 19, PCR Not Detected (NotDetected); Influenza A, PCR Not Detected (NotDetected); Influenza B, PCR Not Detected (NotDetected)
--- NOTE | 2021-01-14 15:02 | PC.NURSE ---
Bib Dotson present at this time
--- NOTE | 2021-01-14 15:19 | HMH.CNCARD ---
History of Present Illness Consult date: 01/14/21 Requesting physician: Juan Felipe Consult reason: atrial fibrillation Chief complaint: A. fib with RVR Additional Medical History:: 1. CAD (see report below) A. History of LAD stenosis with recommendation for medical therapy, 2015 2. Moderate aortic stenosis with 30 mm Transtenotic gradient noted at time of left heart catheterization, 2015 3. Hypertension 4. DNR 5. COPD 6. Hyperlipidemia 7. History of CVA 8. Chronic DVT/PE prophylactics with Xarelto 10 mg daily 9. Hypothyroidism, on replacement therapy 10. Abnormal EKG with chronic LBBB CARDIAC CATHETERIZATION DATE OF CATHETERIZATION:10/20/2015 11:30 AM PROCEDURES: 1. Left heart catheterization 2. Left ventriculogram 3. Selective coronary angiogram INDICATION FOR TEST: 1. Acute Non-ST elevation myocardial infarction 2. Moderate aortic stenosis 3. New onset atrial fibrillation Informed consent was obtained prior to the procedure. COMPLICATIONS: None ESTIMATED BLOOD LOSS: Less than 10 ml. TECHNIQUE: One percent lidocaine was used to anesthetize the right groin. The right femoral artery was accessed via the Seldinger technique. A 4-Hebrew sheath was placed in the right femoral artery. The JL-4 and JR-4 catheter was also used to perform left heart catheterization and left ventriculography. At the end of the procedure the patient was transferred to the post-op holding area in stable condition for arterial sheath removal. ANGIOGRAPHIC RESULTS: 1. The left main artery normal 2. The left anterior descending artery has proximal to mid vessel 70% stenosis followed by a mid vessel 50% stenosis 3. The circumflex artery is a dominant vessel and has diffuse 30% nonflow limiting stenoses 4. The right coronary artery is a nondominant vessel and proximally occluded. Distally the vessel fills via the bridging collaterals from right to right as well as left to right collaterals 5. The HANEY ventriculogram reveals hyperdynamic ejection fraction estimated at 80% 6. The left ventricular end-diastolic pressure 20 mmHg 7. The transaortic valve gradient is 30 mmHg IMPRESSION: 1. Moderate to severe proximal to mid vessel LAD disease and a 2.25 mm LAD vessel 2. Chronically occluded proximal right coronary artery 3. Hyperdynamic ejection fraction 4. Moderate aortic stenosis as evidenced x 30 mm transstenotic gradient 5. Mildly elevated LVEDP PLAN: 1. At this point I favor medical management. The LAD is large enough to stent however I feel that this should be managed medically because of its small caliber size 2. I would recommend anticoagulation for atrial fibrillation 3. Aortic stenosis should be managed medically at this time 4. Risk factor modification <Electronically signed by Vincent Chen MD in [facility]> 10/20/15 1153 ARMANDO / LIOR AT 1130 AT 1135 History of present illness: 85-year-old female resident of [facility] sent to the emergency department for increasing confusion and shortness of breath. Patient is a DNR and family is aware of the patient's medical condition. Patient noted to be in atrial fibrillation with a rapid ventricular response with rate varying from 120-140 bpm blood pressure systolic around 100 mmHg. BENJAMIN Ordonez MD evaluated the patient and contacted Dr. Felipe who requested cardiology consultation. Chest x-ray this admission shows bilateral pneumonia with mild CHF. Patient is awake and knows she is at the hospital. She denies any chest pain, pressure or tightness. Breathing is somewhat labored but patient is able to lie nearly flat on the stretcher. Extremities are cool and clammy. Initial troponin is normal with elevated BUN at 58 but normal creatinine of 1.1. Normal hemoglobin noted. Discussed the case with Dr. PAULA who recommends esmolol drip for rate control due to short half life.
[2021-01-14 15:22] LABS: NT Pro Brain Natriuretic Pep. 77200 pg/mL (0-450)
--- NOTE | 2021-01-14 16:05 | PC.NURSE ---
Waiting for an IV pump to be delivered prior to starting Esmolol drip
--- NOTE | 2021-01-14 16:45 | PC.NURSE ---
Attempted to obtain a 3rd IV without success.
--- NOTE | 2021-01-14 16:46 | PC.NURSE ---
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 Noland who is pest controller for Dr. Felipe
--- NOTE | 2021-01-14 16:47 | PC.NURSE ---
ER stated to hold phenylephrine as long as patient's systolic blood pressure is above 90
--- NOTE | 2021-01-14 16:50 | PC.NURSE ---
Dr Farrell talking to Dr Noland about pt
--- NOTE | 2021-01-14 16:56 | PC.NURSE ---
ER MD DOES NOT WANT TO FLUID RESUSCITATE PATIENT DUE TO PATIENT HAVING CHF
--- NOTE | 2021-01-14 16:57 | PC.NURSE ---
CALLED [place] AT [facility] FOR VANCOMYCIN CONSULT AT THIS TIME
[2021-01-14 17:12] LABS: Reflex Lactic Add Lactic Reflex
[2021-01-14 17:14] LABS: Microscopic, Urine URINE MICROSCOPIC (MICROSCOPIC)
[2021-01-14 17:16] LABS: Appearance,Urine CLEAR (Clear); Bilirubin,Urine Negative (Negative); Blood, Urine 2+ (Negative); Color,Urine YELLOW (Yellow); Glucose,Urine (UA) Negative (Negative); Ketones,Urine Negative (Negative); Leukocyte Esterase,Urine 1+ (Negative); Nitrate,Urine POSITIVE (Negative); Protein,Urine TRACE (Negative); Urobilinogen,Urine 0.2 EU/dl (0.2)
--- NOTE | 2021-01-14 17:27 | PC.NURSE ---
Dr. Felipe seeing patient at this time
--- NOTE | 2021-01-14 17:28 | PC.NURSE ---
Gave report to Radha NEAL at this time
[2021-01-14 17:29] LABS: Bacteria,Urine 2+ /lpf
--- NOTE | 2021-01-14 17:29 | PC.NURSE ---
Attempted to call patient's daughter at this time without success
--- NOTE | 2021-01-14 17:59 | PC.NURSE ---
Gave status update to patient's daughter at this time
--- NOTE | 2021-01-14 18:06 | PC.NURSE ---
lab agreed to do a finger stick for a second troponin at this time
[2021-01-14 19:23] LABS: Troponin I 0.03 ng/ml (0.00-0.034)
[2021-01-14 19:52] LABS: Lactic Acid Follow Up (RFLX 1) 3.2 mmol/L (0.7-2.1)
--- NOTE | 2021-01-14 21:24 | HMH.HP ---
*Admission Date: 01/14/21 <Nicole Byrne - 01/14/21 21:52> *History of present illness: Ms. Helms is an 85-year-old female resident of [facility] who began having respiratory distress. An ambulance was called and she was transported to the emergency room. She reported to the ER physician that she felt cold but she denied any pain or difficulty breathing. She denied any chest pain or palpitations. She had been treated for suspected dehydration with IV fluids at the half-way according to the ER physician. The patient's daughter arrived as she was being wheeled into the emergency department and stated that she was dying and indicated that they had accepted that. She stated she was going home and the ER could call her with any updates. The patient was evaluated and is a DNR. She was noted to be in atrial fibrillation with rapid ventricular response with a rate varying from 120 to 140 bpm. Her systolic blood pressure was only around 100. She had a chest x-ray showing bilateral pneumonia with mild CHF. Her initial troponin was normal with an elevated BUN but normal creatinine. Cardiology was consulted and Dr. Hook recommended an esmolol drip for rate control due to its short half-life. He felt she could be started on Cornelius-Synephrine as well for blood pressure support if needed. She was also started on IV antibiotics and DuoNebs for her pneumonia. Her BNP was elevated at 77,200. Her lactic acid was elevated as well. She had a chest CTA showing large bilateral effusions with severe left lower lobe collapse and severe volume loss in the right lower lobe. Her CT also suggested pulmonary arterial hypertension as well as bilateral groundglass infiltrates. She was admitted to stepdown for further evaluation and treatment. The patient is a poor historian and states she hurts all over. She is unable to give any medical history. She is very confused and the ER nurses have had difficulty placing her catheter and getting any other IV access. <Nicole Byrne - 01/14/21 21:52> [facility] History I have reviewed the patient's past medical history: Yes <Nicole Byrne - 01/14/21 21:52> Medical History: Reports:: Arrhythmia, Atrial Fibrillation, Congestive Heart Failure, Chronic Obstructive Pulmonary Disease (COPD), Coronary Artery Disease, Cerebrovascular Accident, Hypertension, Myocardial Infarction, Renal Disease, Valvular Heart Disease Denies:: Cancer, Diabetes Mellitus Type 1, Diabetes Mellitus Type 2, Internal Pacemaker, MRSA <Nicole Byrne 01/14/21 21:52> *Have you ever received a pneumonia vaccine?: No <Nicole Byrne 01/14/21 21:52> *Have you received a flu vaccine this season?: No <Nicole Byrne 01/14/21 21:52> Other Medical History: Reports: Anemia, Hypothyroidism <Nicole Byrne 01/14/21 21:52> Laterality Cases: Bilateral: Other <Nicole Byrne 01/14/21 21:52> Other Surgeries: No: Pacemaker <Nicole Byrne 01/14/21 21:52> Amputation: No <Nicole Byrne 01/14/21 21:52> - *Social History Smoking Status: Never smoker <Nicole Byrne 01/14/21 21:52> Alcohol Intake: never <Nicole Byrne 01/14/21 21:52> Substance Use Type: denies use <Nicole Byrne 01/14/21 21:52> *Occupational Status:: unemployed <Nicole Byrne 01/14/21 21:52> *Travel in the last 8 weeks: None <Nicole Byrne 01/14/21 21:52> Family Hx:: Unable to obtain <Nicole Byrne 01/14/21 21:52> Review of Systems - Review of Systems Review of systems:: unable to obtain <Nicole Byrne 01/14/21 21:52> Meds Home Medications Medication Instructions Recorded Confirmed Type Acetaminophen [Acetaminophen Extra 500 mg PO Q4HP PRN 06/07/17 01/14/21 History Strength] Buspirone HCl [Buspar 10mg 15 mg PO TID 06/07/17 01/14/21 History tablet] Docusate Sodium [Colace 250mg 250 mg PO DAILY 06/07/17 01/14/21 History capsule] Escitalopram Oxalate [Lexapro] 20 mg PO HS 06/07/17 01/14/21 History Fenofibrate Nanocrystallized 48 mg PO
[2021-01-14 21:40] LABS: Reflex Lactic (2 hrs) Add Lactic Reflex
[2021-01-14 22:21] LABS: Lactic Acid Follow up (RFLX 2) 3.4 mmol/L (0.7-2.1)
[2021-01-14 22:52] LABS: Troponin I 0.04 ng/ml (0.00-0.034)
[2021-01-15] VITALS (22 sets, daily range): BP systolic 80–121; BP diastolic 42–72; PULSE 68–93; RESP 18–29; TEMP 35.7–36.8; O2SAT 94–100; BMI 22.4; BMI 22.6
--- NOTE | 2021-01-15 00:13 | PC.NURSE ---
shift change esmolol drip at 22ml/hr, 2029 heart rate sustaining 90s, sbp has dropped into 80s. esmolol drip decreased to 15 ml/hr. 2099 heart rate continues to maintain below 100, esmolol drip decreasd to 10, 2129 heart rate sustaining below 100, sbp borderline, esmolol drip decreased to 5 ml/hr. 2214 heart rate sustaining below 100, sbp remains borderline esmolol drip stopped.
--- NOTE | 2021-01-15 04:29 | PC.NURSE ---
2229 blood pressure remains low with esmolol drip off, joni drip started at 20 mcq.
--- NOTE | 2021-01-15 04:30 | PC.NURSE ---
0000 joni drip increased to 30 mcq for low bps.
--- NOTE | 2021-01-15 04:31 | PC.NURSE ---
0400 previously attempted to decrease joni drip back to 20 mcq, was unsuccessful. map dropped below 65. currently joni drip is at 25 mcq
--- NOTE | 2021-01-15 07:07 | P.CONPHA_ITS ---
[facility] Pharmacy VTE Monitoring - Patient Demographics Admission date: 01/14/21 Report Date: 01/15/21 Time: 07:07 Allergies/Adverse Reactions: Patient Allergies lisinopril [LISINOPRIL] Allergy (Mild, Verified 09/12/17 10:29) procaine [PROCAINE] Allergy (Mild, Verified 09/12/17 10:29) Penicillins [PENICILLINS] Allergy (Unknown, Verified 09/12/17 10:29) Height: 1.63 m Weight: 59.676 kg Patient Problems: Current Active Problems HCAP (healthcare-associated pneumonia) (Acute) LBBB (left bundle branch block) (Acute) CAD (coronary artery disease) (Chronic) Hypothyroidism (Chronic) HTN (hypertension) (Chronic) History of CVA with residual deficit (Chronic) Rapid atrial fibrillation (Acute) Congestive heart failure (Acute) Respiratory failure with hypoxia (Acute) Hypotension (Acute) Urinary tract infection (Acute) Pulmonary hypertension (Acute) Aortic stenosis (Acute) - VTE Risk Labs: VTE Related Lab Results Hgb 13.6 g/dL (12.2-16.2) 01/14/21 12:55 Hct 43.7 % (37.0-47.0) 01/14/21 12:55 Plt Count 217 K/mm3 (142-424) 01/14/21 12:55 BUN 58 mg/dl (7-17) H 01/14/21 12:55 Creatinine 1.00 mg/dl (0.52-1.04) 01/14/21 12:55 Estimated Creat Clear 46 mL/min (50-200) 01/14/21 12:55 Was VTE Risk Assessment Performed: Yes VTE Score: 5 VTE Risk Level: Low Risk - Prophylaxis VTE Prophylaxis Ordered?: Yes Types of VTE Prophylaxis: Pharmacological Pharmacologic Type: Other (XARELTO)
--- NOTE | 2021-01-15 07:51 | HMH.PHAINT ---
MEDICATION RECONCILIATION COMPLETED ON PATIENT USING MAR FROM ASSISTED. -JONATHAN PANCHAL, VERONIKAD
--- NOTE | 2021-01-15 08:00 | HMH.PHACONS ---
- Pharmacy Consult Date: 01/15/21 Time: 08:00 Referring provider: ILA Reason for Consult:: VANCOMYCIN THERAPY MANAGEMENT Allergies and ADEs:: Allergies Allergy/AdvReac Type Severity Reaction Status Date / Time lisinopril [LISINOPRIL] Allergy Mild Verified 09/12/17 10:29 procaine [PROCAINE] Allergy Mild Verified 09/12/17 10:29 Penicillins [PENICILLINS] Allergy Unknown Verified 09/12/17 10:29 Home Medications:: Home Medications Medication Instructions Recorded Confirmed Type Docusate Sodium [Colace 250mg 250 mg PO DAILY 06/07/17 01/14/21 History capsule] Hydrocod/Acet 5/325 mg [Nazareth 1 tab PO HS 06/07/17 01/15/21 History 5/325mg tablet] Levothyroxine Sodium [Synthroid 50 mg PO 1400 06/07/17 01/15/21 History 50mcg (0.05mg) tab] Loratadine [Claritin 10mg 10 mg PO DAILY 06/07/17 01/14/21 History Tablet] Metoprolol Tartrate [Lopressor 25 mg PO BID 06/07/17 01/14/21 History 25mg tablet] aspirin 81 mg tablet,delayed 81 mg PO DAILY 09/12/17 01/15/21 History release Lutein 10 mg PO DAILY 01/14/21 01/14/21 History Rivaroxaban [Xarelto 10mg tablet] 10 mg PO QPMWITHMEAL 01/14/21 01/15/21 History Buspirone HCl [Buspirone 15 mg 15 mg PO TID 01/15/21 01/15/21 History Tablets] Carboxymethylcellulos/Glycerin 1 drp OP BID 01/15/21 01/15/21 History [Refresh Optive Eye Drops] Ferrous Sulfate 325 mg PO DAILY 01/15/21 01/15/21 History Multivitamin with Folic Acid 400 mcg PO 1700 01/15/21 01/15/21 History [Therems Multivitamin Tablet] Pravastatin Sodium [Pravachol 20mg 20 mg PO HS 01/15/21 01/15/21 History Tablet] Saccharomyces Boulardii [Florastor] 250 mg PO DAILY 01/15/21 01/15/21 History buPROPion HCL [Bupropion HCl Sr] 100 mg PO DAILY 01/15/21 01/15/21 History calcium polycarbophiL [Fiber] 625 mg PO BID 01/15/21 01/15/21 History Height: 1.63 m Weight: 59.676 kg Laboratory Results:: Laboratory Results - last 24 hr 01/14/21 12:55: WBC 9.3, RBC 5.08, Hgb 13.6, Hct 43.7, MCV 86.0, MCH 26.8 L, MCHC 31.2 L, RDW 15.3, Plt Count 217, MPV 11.2 H, Neut % (Auto) 81.4 H, Lymph % (Auto) 10.4, [place] % (Auto) 7.3, Eos % (Auto) 0.6, Baso % (Auto) 0.3, Neut # (Auto) 7.6, Lymph # (Auto) 1.0, [place] # (Auto) 0.7, Eos # (Auto) 0.1, Baso # (Auto) 0.0 01/14/21 12:55: Sodium 131 L, Potassium 5.0, Chloride 105, Carbon Dioxide 14 L, Anion Gap 17.0 H, BUN 58 H, Creatinine 1.00, Estimated Creat Clear 46, Estimated GFR 53 L, Est GFR ( Amer) 64, Glucose 137 H, Calcium 8.6, Total Bilirubin 0.8, AST 36, ALT 26, Alkaline Phosphatase 56, Troponin I 0.03, Total Protein 6.8, Albumin 3.7, Globulin 3.1, Albumin/Globulin Ratio 1.2 01/14/21 12:55: Lactate 3.3 H 01/14/21 12:55: NT-Pro-B Natriuret Pep 40986 H 01/14/21 14:52: SARS-CoV-2 (PCR) Not detected, Influenza A Untype (PCR) Not detected, Influenza Type B (PCR) Not detected 01/14/21 17:10: Urine Color Yellow, Urine Appearance Clear, Urine pH 6.0, Ur Specific [place] 1.010, Urine Protein Trace, Urine Glucose (UA) Negative, Urine Ketones Negative, Urine Blood 2+, Urine Nitrate Positive, Urine Bilirubin Negative, Urine Urobilinogen 0.2, Ur Leukocyte Esterase 1+ A, Urine RBC 5-10, Urine WBC 10-20, Ur Squamous Epith Cells None, Urine Bacteria 2+ 01/14/21 18:16: Troponin I 0.03 01/14/21 19:38: Lactate 3.2 H 01/14/21 22:00: Troponin I 0.04 H 01/14/21 22:00: Lactate 3.4 H Medical History: Reports:: Arrhythmia, Atrial Fibrillation, Congestive Heart Failure, Chronic Obstructive Pulmonary Disease (COPD), Coronary Artery Disease, Cerebrovascular Accident, Hypertension, Myocardial Infarction, Renal Disease, Valvular Heart Disease Denies:: Cancer, Diabetes Mellitus Type 1, Diabetes Mellitus Type 2, Internal Pacemaker, MRSA Assessment and Plan (1) Rapid atrial fibrillation Status: Acute Category: Medical Code(s): I48.91 - Unspecified atrial fibrillation (2) HCAP (healthcare-associated pneumonia) Status: Acute Category: Medical Code(s): J18.9 - Pneumonia, unsp
--- NOTE | 2021-01-15 08:51 | HMH.ACPN2 ---
<Nicole Byrne - Last Filed: 01/15/21 08:51> Internal Medicine - PN: Subj *Date: 01/15/21 *Time: 08:51 Interval history: Patient is sleeping this morning and does get very agitated with any exam. She says she hurts all over. Exam Vital signs and Labs for Last 24 Hours: Temp Pulse Resp BP Pulse Ox 97.7 F 80 18 103/59 L 96 01/15/21 07:59 01/15/21 08:09 01/15/21 06:00 01/15/21 06:00 01/15/21 06:00 Laboratory Results - last 24 hr 01/14/21 12:55: WBC 9.3, RBC 5.08, Hgb 13.6, Hct 43.7, MCV 86.0, MCH 26.8 L, MCHC 31.2 L, RDW 15.3, Plt Count 217, MPV 11.2 H, Neut % (Auto) 81.4 H, Lymph % (Auto) 10.4, [place] % (Auto) 7.3, Eos % (Auto) 0.6, Baso % (Auto) 0.3, Neut # (Auto) 7.6, Lymph # (Auto) 1.0, [place] # (Auto) 0.7, Eos # (Auto) 0.1, Baso # (Auto) 0.0 01/14/21 12:55: Sodium 131 L, Potassium 5.0, Chloride 105, Carbon Dioxide 14 L, Anion Gap 17.0 H, BUN 58 H, Creatinine 1.00, Estimated Creat Clear 46, Estimated GFR 53 L, Est GFR ( Amer) 64, Glucose 137 H, Calcium 8.6, Total Bilirubin 0.8, AST 36, ALT 26, Alkaline Phosphatase 56, Troponin I 0.03, Total Protein 6.8, Albumin 3.7, Globulin 3.1, Albumin/Globulin Ratio 1.2 01/14/21 12:55: Lactate 3.3 H 01/14/21 12:55: NT-Pro-B Natriuret Pep 75846 H 01/14/21 14:52: SARS-CoV-2 (PCR) Not detected, Influenza A Untype (PCR) Not detected, Influenza Type B (PCR) Not detected 01/14/21 17:10: Urine Color Yellow, Urine Appearance Clear, Urine pH 6.0, Ur Specific [place] 1.010, Urine Protein Trace, Urine Glucose (UA) Negative, Urine Ketones Negative, Urine Blood 2+, Urine Nitrate Positive, Urine Bilirubin Negative, Urine Urobilinogen 0.2, Ur Leukocyte Esterase 1+ A, Urine RBC 5-10, Urine WBC 10-20, Ur Squamous Epith Cells None, Urine Bacteria 2+ 01/14/21 18:16: Troponin I 0.03 01/14/21 19:38: Lactate 3.2 H 01/14/21 22:00: Troponin I 0.04 H 01/14/21 22:00: Lactate 3.4 H I & O for Last 24 hours: Intake & Output 01/12/21 01/13/21 01/14/21 01/15/21 11:59 11:59 11:59 11:59 Intake Total 1121 / 1121 Output Total 2100 / 2100 Balance -979 / -979 Weight 131 lb 9 oz Microbiology Reports for the Last 24 Hours: Microbiology 01/14/21 17:10 Urine,Catheterized Urine Culture - Preliminary Gram Negative Rods - Constitutional agitated - *Routine Respiratory Exam Present: decreased breath sounds, rales (Bilateral bases) - *Routine Cardiovascular Exam Present: irregularly irregular - *Routine Abdominal Exam Present: soft, normoactive bowel sounds, tenderness (Diffuse) - *Routine Extremities Exam Absent: cyanosis, clubbing, edema - *Routine Skin Exam Present: warm. Absent: rash - *Routine Neurological Exam Present: altered mental status Assessment and Plan (1) Rapid atrial fibrillation Status: Acute Category: Medical Code(s): I48.91 - Unspecified atrial fibrillation (2) HCAP (healthcare-associated pneumonia) Status: Acute Category: Medical Code(s): J18.9 - Pneumonia, unspecified organism (3) Urinary tract infection Status: Acute Category: Medical Code(s): N39.0 - Urinary tract infection, site not specified (4) Respiratory failure with hypoxia Status: Acute Qualifiers: Chronicity: acute Qualified Code(s): J96.01 - Acute respiratory failure with hypoxia Category: Medical Code(s): J96.91 - Respiratory failure, unspecified with hypoxia (5) Congestive heart failure Status: Acute Qualifiers: Heart failure type: unspecified Heart failure chronicity: acute Qualified Code(s): I50.9 - Heart failure, unspecified Category: Medical Code(s): I50.9 - Heart failure, unspecified (6) History of CVA with residual deficit Status: Chronic Category: Medical Code(s): I69.30 - Unspecified sequelae of cerebral infarction (7) LBBB (left bundle branch block) Status: Acute Category: Medical Code(s): I44.7 - Left bundle-branch block, unspecified (8) CAD (coronary artery di
--- NOTE | 2021-01-15 08:58 | PC.NURSE ---
Cornelius gtt turned OFF @ this time. BP 112/42 and HR 70.
[2021-01-15 09:13] LABS: Basophils % 0.3 % (0.1-2.0); Eosinophils # 0.1 K/mm3 (0.0-0.4); Eosinophils % 1.5 % (0.1-12.0); Lymphocytes # 1.1 K/mm3 (0.7-4.5); Lymphocytes % 13.6 % (10-50); Mean Corpuscular HGB Conc 31.3 g/dL (31.8-35.4); Mean Corpuscular Hemoglobin 26.1 pg (27.0-31.2); Mean Corpuscular Volume 83.5 fl (81-99); Mean Platelet Volume 10.1 fl (7.4-10.4); Monocytes # 0.5 K/mm3 (0.1-1.0); Neutrophils % 77.6 % (37.0-80.0); Platelet Count 151 K/mm3 (142-424); Red Blood Count 4.68 M/mm3 (4.20-5.40); Red Cell Distribution Width 15.4 % (11.5-17.5); White Blood Count 7.7 K/mm3 (4.8-10.8)
[2021-01-15 09:24] LABS: Chloride 113 mmol/L (98-107); Potassium 3.5 mmoL/L (3.5-5.1); Sodium 135 mmol/L (136-145)
[2021-01-15 09:27] LABS: Anion Gap 10.5 mEq/L (5-15); Blood Urea Nitrogen 47 mg/dl (7-17); Carbon Dioxide 15 mmol/L (22.0-30.0); Creatinine Clearance Estimated 39 mL/min (50-200); Estimated Glomerular Filt Rate 80 ml/min (>60); GFR (African American) 96 ML/MIN (>60); Glucose 76 mg/dl (74-100)
[2021-01-15 09:28] LABS: Calcium 7.4 mg/dl (8.4-10.2)
--- NOTE | 2021-01-15 09:54 | SW/DCPLANNER ---
Addendum entered by Lala Peacock 01/19/21 09:24: Updated patient information has been faxed to Analia with [facility]. The plan is for this patient to return today with IV antibiotics (Analia stated a deep line is fine). Analia has also stated that patient does NOT need another COVID swab. This patient will discharge later today. Addendum entered by Lala Peacock 01/18/21 08:20: The plan is for this patient to discharge back to [facility] today. I have informed Analia: no further COVID testing needed per Analia. I have also informed Analia that this patient will discharge back with IV Vanc (total of 10 days) and PICC line. Patient will discharge later today. Original Note: This patient currently resides at [facility]. I spoke with Analia from [place] and she stated that patient is ICF level of care. I will continue to follow up with Analia until patient is medically stable for discharge.
[2021-01-15 09:58] LABS: Thyroid Stimulating Hormone 4.41 uIU/mL (0.465-4.68)
--- NOTE | 2021-01-15 10:00 | PC.NURSE ---
BP 80/43. Cornelius gtt turned back on @ 25mcg/min.
--- NOTE | 2021-01-15 10:11 | HMH.PNCARD ---
Subjective Date: 01/15/21 Time: 10:00 Principal diagnosis: Pneumonia and atrial fibrillation Interval history: 85-year-old female admitted to [facility] with worsening shortness of breath and pneumonia yesterday. Patient becomes very agitated when speaking with her. Patient can answer simple questions. Patient does not know the date or know where she is. Patient's a DNR status. Cardiology was consulted due to atrial fibrillation with RVR and hypotension. Patient had been started on a Esmolol drip and Cornelius-Synephrine for blood pressure support. Upon this assessment, both drips had been stopped due to adequate blood pressure control and heart rate control. Patient does have history of chronic atrial fibrillation. equipment monitor phototypesetting reveals atrial fibrillation at a controlled rate. Blood pressure had been stable. Cornelius-Synephrine had to be restarted due to systolic pressure was below 90mmHg. lower extremities are noted as cold and clammy. No swelling noted of the lower extremities. Patient is poor historian. Chest CTA was performed which revealed large bilateral pleural effusions with severe left lower lobe collapse and severe lung volume loss of the right lower lobe. Pulmonary arterial hypertension also noted. Bilateral ground glass infiltrates/pneumonia was noted. PCP did reorder Covid testing to rule out Covid. Creatinine level was within normal. BUN 47. Chest CTA:IMPRESSION: 1. No evidence of pulmonary embolus. 2. Large bilateral pleural effusions with severe left lower lobe collapse and severe volume loss in the right lower lobe. 7 mm right apical nodule nonspecific 3. Multi chamber cardiac enlargement with reflux of contrast into a dilated inferior vena cava and hepatic veins consistent with right heart strain or dysfunction. Mildly prominent pulmonary arteries with pulmonary artery ratio greater than 1 suggesting pulmonary arterial hypertension. 4. Bilateral ground-glass infiltrates/pneumonia 5. Fluid-filled esophagus Patient is DNR. Continue Cornelius-Synephrine drip as indicated for systolic pressure below 90 mmHg. Continue Xarelto 15 mg as indicated for atrial fibrillation. Please notify cardiology of any changes in patient status. Exam Vital signs and Labs for Last 24 Hours: Temp Pulse Resp BP Pulse Ox 97.7 F 79 18 106/53 L 96 01/15/21 07:59 01/15/21 09:00 01/15/21 09:00 01/15/21 09:00 01/15/21 09:00 Laboratory Results - last 24 hr 01/14/21 12:55: WBC 9.3, RBC 5.08, Hgb 13.6, Hct 43.7, MCV 86.0, MCH 26.8 L, MCHC 31.2 L, RDW 15.3, Plt Count 217, MPV 11.2 H, Neut % (Auto) 81.4 H, Lymph % (Auto) 10.4, [place] % (Auto) 7.3, Eos % (Auto) 0.6, Baso % (Auto) 0.3, Neut # (Auto) 7.6, Lymph # (Auto) 1.0, [place] # (Auto) 0.7, Eos # (Auto) 0.1, Baso # (Auto) 0.0 01/14/21 12:55: Sodium 131 L, Potassium 5.0, Chloride 105, Carbon Dioxide 14 L, Anion Gap 17.0 H, BUN 58 H, Creatinine 1.00, Estimated Creat Clear 46, Estimated GFR 53 L, Est GFR ( Amer) 64, Glucose 137 H, Calcium 8.6, Total Bilirubin 0.8, AST 36, ALT 26, Alkaline Phosphatase 56, Troponin I 0.03, Total Protein 6.8, Albumin 3.7, Globulin 3.1, Albumin/Globulin Ratio 1.2 01/14/21 12:55: Lactate 3.3 H 01/14/21 12:55: NT-Pro-B Natriuret Pep 97455 H 01/14/21 14:52: SARS-CoV-2 (PCR) Not detected, Influenza A Untype (PCR) Not detected, Influenza Type B (PCR) Not detected 01/14/21 17:10: Urine Color Yellow, Urine Appearance Clear, Urine pH 6.0, Ur Specific [place] 1.010, Urine Protein Trace, Urine Glucose (UA) Negative, Urine Ketones Negative, Urine Blood 2+, Urine Nitrate Positive, Urine Bilirubin Negative, Urine Urobilinogen 0.2, Ur Leukocyte Esterase 1+ A, Urine RBC 5-10, Urine WBC 10-20, Ur Squamous Epith Cells None, Urine Bacteria 2+ 01/14/21 18:16: Troponin I 0.03 01/14/21 19:38: Lactate 3.2 H 01/14/21 22:00: Troponin I 0.04 H 01/14/21 22:00: Lactate 3.4 H 01/15/21 08:50: Sodium 135 L, Potassium 3.5 D, Chloride 113 H, Carbon Dioxide 15 L,
[2021-01-15 10:55] LABS: Hemoglobin 12.2 g/dL (12.2-16.2)
--- NOTE | 2021-01-15 11:00 | PC.NURSE ---
BP 87/48. Cornelius gtt increased to 40mcg/min
--- NOTE | 2021-01-15 11:30 | PC.NURSE ---
BP 121/72. Cornelius gtt decreased to 30mcg/min
--- NOTE | 2021-01-15 21:00 | PC.NURSE ---
dr. flowers notified of postitive blood cultures after receivig call from tran cho. antibiotics reviewed. no new orders received.
[2021-01-16] VITALS (12 sets, daily range): BP systolic 99–128; BP diastolic 48–66; PULSE 66–85; RESP 14–20; TEMP 36.5–36.6; O2SAT 95–98; BMI 24.6
[2021-01-16 06:07] LABS: Basophils % 0.2 % (0.1-2.0); Eosinophils # 0.1 K/mm3 (0.0-0.4); Eosinophils % 1.6 % (0.1-12.0); Hematocrit 39.2 % (37.0-47.0); Hemoglobin 12.1 g/dL (12.2-16.2); Lymphocytes % 20.1 % (10-50); Mean Corpuscular HGB Conc 30.8 g/dL (31.8-35.4); Mean Corpuscular Hemoglobin 26.3 pg (27.0-31.2); Mean Corpuscular Volume 85.2 fl (81-99); Monocytes # 0.5 K/mm3 (0.1-1.0); Monocytes % 8.7 % (1.7-9.3); Neutrophils # 3.6 K/mm3 (1.8-7.8); Neutrophils % 69.3 % (37.0-80.0); Platelet Count 101 K/mm3 (142-424); Red Cell Distribution Width 15.5 % (11.5-17.5); White Blood Count 5.1 K/mm3 (4.8-10.8)
--- NOTE | 2021-01-16 06:21 | PC.NURSE ---
have made several unsuccessful attempts to titrate joni drip to off thoughout shift. was finally able to get off and keep off since 399. sbp has maintained greater than 90 with map greater than 65
[2021-01-16 06:39] LABS: Chloride 115 mmol/L (98-107); Potassium 3.9 mmoL/L (3.5-5.1); Sodium 136 mmol/L (136-145)
[2021-01-16 06:42] LABS: Anion Gap 12.9 mEq/L (5-15); Blood Urea Nitrogen 34 mg/dl (7-17); Carbon Dioxide 12 mmol/L (22.0-30.0); Creatinine Clearance Estimated 42 mL/min (50-200); Estimated Glomerular Filt Rate 95 ml/min (>60); GFR (African American) 115 ML/MIN (>60); Glucose 60 mg/dl (74-100)
--- NOTE | 2021-01-16 08:48 | XR_ITS ---
PROCEDURE INFORMATION: Exam: XR Chest Exam date and time: 01/16/2021 8:48 AM Age: 85 years old Clinical indication: Other: F/u pnumonia and chf; Additional info: F/u pneumonia and chf TECHNIQUE: Imaging protocol: XR of the chest. Views: 1 view. COMPARISON: CR XR CHEST PORTABLE 01/14/2021 1:16 PM FINDINGS: Lungs: Patchy bilateral opacities may represent multifocal pneumonia including COVID.. Pleural spaces: There may be small bilateral pleural effusions. Heart/Mediastinum: Cardiomegaly and vascular prominence may represent interstitial edema or congestive heart failure.. Mitral valve calcification Bones/joints: Unremarkable. IMPRESSION: 1. Cardiomegaly and vascular prominence may represent interstitial edema or congestive heart failure.. 2. Patchy bilateral opacities may represent multifocal pneumonia including COVID.. 3. There may be small bilateral pleural effusions.
--- NOTE | 2021-01-16 08:50 | HMH.ACPN2 ---
Internal Medicine - PN: Subj *Date: 01/16/21 *Time: 08:53 Interval history: No acute events overnight. Nursing staff was able to wean her off the Cornelius-Synephrine drip about 4 AM and map has remained greater than 65. She has been more cooperative with her care. She is more alert this morning and has no specific complaints other than she generally does not feel well. Exam Vital signs and Labs for Last 24 Hours: Temp Pulse Resp BP Pulse Ox 98 F 80 16 99/53 L 96 01/16/21 04:00 01/16/21 06:00 01/16/21 06:00 01/16/21 06:00 01/16/21 06:00 Laboratory Results - last 24 hr 01/15/21 08:50: Sodium 135 L, Potassium 3.5 D, Chloride 113 H, Carbon Dioxide 15 L, Anion Gap 10.5, BUN 47 H, Creatinine 0.70 D, Estimated Creat Clear 39, Estimated GFR 80, Est GFR ( Amer) 96 D, Glucose 76 D, Calcium 7.4 L, TSH 4.41 01/15/21 08:50: WBC 7.7, RBC 4.68, Hgb 12.2 D, Hct 39.0, MCV 83.5, MCH 26.1 L, MCHC 31.3 L, RDW 15.4, Plt Count 151 D, MPV 10.1, Neut % (Auto) 77.6, Lymph % (Auto) 13.6, [place] % (Auto) 7.0, Eos % (Auto) 1.5, Baso % (Auto) 0.3, Neut # (Auto) 6.0, Lymph # (Auto) 1.1, [place] # (Auto) 0.5, Eos # (Auto) 0.1, Baso # (Auto) 0.0 01/16/21 05:30: WBC 5.1 D, RBC 4.60, Hgb 12.1 L, Hct 39.2, MCV 85.2, MCH 26.3 L, MCHC 30.8 L, RDW 15.5, Plt Count 101 L D, MPV 10.0, Neut % (Auto) 69.3, Lymph % (Auto) 20.1, [place] % (Auto) 8.7, Eos % (Auto) 1.6, Baso % (Auto) 0.2, Neut # (Auto) 3.6, Lymph # (Auto) 1.0, [place] # (Auto) 0.5, Eos # (Auto) 0.1, Baso # (Auto) 0.0 01/16/21 05:30: Sodium 136, Potassium 3.9, Chloride 115 H, Carbon Dioxide 12 L, Anion Gap 12.9, BUN 34 H D, Creatinine 0.60, Estimated Creat Clear 42, Estimated GFR 95, Est GFR ( Amer) 115, Glucose 60 L D, Calcium 7.0 L I & O for Last 24 hours: Intake & Output 01/13/21 01/14/21 01/15/21 01/16/21 11:59 11:59 11:59 11:59 Intake Total 1121 / 1121 2961 / 2961 Output Total 2099 / 2099 1300 / 1300 Balance -979 / -979 1661 / 1661 Weight 131 lb 9 oz 144 lb 3 oz Microbiology Reports for the Last 24 Hours: Microbiology 01/14/21 17:10 Urine,Catheterized Urine Culture - Final Escherichia coli 01/14/21 22:00 Blood Blood Culture - Preliminary 01/15/21 09:48 Nasopharyngeal Coronavirus COVID-19 PCR - Final Narrative: She is alert and responds appropriately to questions. Speech is dysarthric and sometimes difficult to understand. Color is good. Breath sounds are diminished in the bases with bilateral rales. No wheezes. Heart is regular. Abdomen is soft and nondistended with some subjective mild low abdominal tenderness. Extremities show no edema. Assessment and Plan (1) Rapid atrial fibrillation Status: Acute Category: Medical Code(s): I48.91 - Unspecified atrial fibrillation (2) HCAP (healthcare-associated pneumonia) Status: Acute Category: Medical Code(s): J18.9 - Pneumonia, unspecified organism (3) Urinary tract infection Status: Acute Category: Medical Code(s): N39.0 - Urinary tract infection, site not specified (4) Respiratory failure with hypoxia Status: Acute Qualifiers: Chronicity: acute Qualified Code(s): J96.01 - Acute respiratory failure with hypoxia Category: Medical Code(s): J96.91 - Respiratory failure, unspecified with hypoxia (5) Congestive heart failure Status: Acute Qualifiers: Heart failure type: unspecified Heart failure chronicity: acute Qualified Code(s): I50.9 - Heart failure, unspecified Category: Medical Code(s): I50.9 - Heart failure, unspecified (6) History of CVA with residual deficit Status: Chronic Category: Medical Code(s): I69.30 - Unspecified sequelae of cerebral infarction (7) LBBB (left bundle branch block) Status: Acute Category: Medical Code(s): I44.7 - Left bundle-branch block, unspecified (8) CAD (coronary artery disease) Status: Chronic Category: Medical Code(s): I25.10 - Atherosclerotic heart disea
[2021-01-16 17:17] LABS: Vancomycin,Trough 9.1 ug/mL (5.0-10.0)
--- NOTE | 2021-01-16 19:31 | PC.NURSE ---
DURING ROUNDS WITH PCP THIS MORNING PT WAS VERY ILL APPEARING AND WAS STRUGGLING TO STAY AWAKE. PCP STATED HE WAS NOT GOING TO BE ABLE TO SEND HER HOME TODAY B/C SHE HAD NOT BEEN OOB AND OXYGEN WAS AT 4L WHEN AT HOME SHE IS USUALLY AT 2.5-3 L. O2 SATURATION WAS MAINTAINING 82-92% ON 4 L THIS MORNING. PT WAS VERY UPSET OVER NOT BEING ABLE TO BE DISCHARGED. DURING ASSESSMENT THIS MORNING PT STATED SHE WAS WANTING HER MEDICINE BUT REFUSED HER PROTONIX AND STATED SHE TOOK HER SUBOXONE BROKE UP AND SHE TOOK SMALL DOSES T/O THE DAY B/C SHE DID NOT WANT TO TAKE THE ENTIRE DOSE AT ONCE. PT WAS INSTRUCTED THAT SHE WAS NOT ABLE TO DO THAT WHILE SHE WAS HERE IT WAS EITHER TAKE THE DOSE PRESCRIBED OR NOT TAKE IT AT ALL (PHARMACY NOTIFIED AND THEY STATED THE MEDICATION HAD TO BE ADMINISTERED THE WAY IT WAS ORDERED) PT STARTED TO BECOME MORE DROWSY AND HER O2 SATURATION WAS ONLY MAINTAINING 80-85%. PT WAS ASSISTED UP TO THE CHAIR ALTHOUGH SHE WAS NOT THRILLED ABOUT THE FACT THAT SHE NEEDED TO SIT UP. PT CONTINUED TO BE DROWSY AND THERE WAS STILL NO IMPROVEMENT WITH O2 SATURATION. NOTIFIED AND ORDERED FOR PT TO HAVE CXR/VENTI MASK/DUONEBS Q4 TO IMPROVE SATURATION. RT APPLIED 50% VENTI WITH NO IMPROVEMENT IN SATURATION. ELISEO NOTIFIED ABG WAS ORDERED. ELISEO NOTIFIED RT TO PUT PT ON BIPAP AFTER ABG RESULTS. O2 SATURATION HAS MAINTAINED IN THE MID 90'S SINCE PT HAS BEEN ON BIPAP. PT CONTINUES TO BE VERY DROWSY. LUNG SOUNDS DIMINISHED. THIS AFTERNOON ON ASSESSMENT BLADDER WAS DISTENDED. PCP NOTIFIED (CATHETER INSERTED). PT HAS A STAGE 2 NOTED TO THE COCCYX AND THE LT THIGH WITH DRESSING C/D/I. TURNED AND REPOSITIONED FREQUENTLY. APPETITE HAS BEEN VERY POOR THIS SHIFT DUE TO RESPIRATORY STATUS. WILL CONTINUE TO MONITOR.
--- NOTE | 2021-01-16 19:58 | PC.NURSE ---
PT IS RESTING IN BED. PT HAS BEEN VERY UNCOOPERATIVE THIS SHIFT. PT HAS REFUSED TO EAT ALL MEALS. WILL OCCASIONALLY CURSE THE STAFF. HAS TAKEN A FEW SIPS OF WATER AND LEMONADE WITH PO MEDICATIONS. LUNG SOUNDS DIMINISHED WITH BILATERAL CRACKLES. ABDOMEN SOFT WITH SOME TENDERNESS. ACTIVE BOWEL SOUNDS. PT HAS HAD 2 BOWEL MOVEMENTS THIS SHIFT. ALERT TO SELF ONLY. STAGE 2 NOTED TO THE COCCYX. LT SIDED WEAKNESS. VSS. WILL CONTINUE TO MONITOR.
--- NOTE | 2021-01-16 21:43 | PC.NURSE ---
patient has been refusing all care up to this point tonight. including repositioning, medications and lab draws
[2021-01-17] VITALS (10 sets, daily range): BP systolic 118–149; BP diastolic 60–84; PULSE 64–86; RESP 16–24; TEMP 36.4–36.9; O2SAT 96–98; BMI 25.2
--- NOTE | 2021-01-17 05:26 | PC.NURSE ---
austin has slept very little tonight and has been in uncooperative belligerent mood tonight. refusing care medications, lab draws and oral intake. patient has been yelling out that she wants to go home. have attempted to to reorient patient to surrounding and patient disagrees and states that she will walk home. blood pressure remains systolic greater than 100. heart rate at times dos drop to 47 briefly.
--- NOTE | 2021-01-17 08:41 | HMH.ACPN2 ---
Internal Medicine - PN: Subj *Date: 01/17/21 *Time: 08:52 Interval history: She has been much more alert but also more agitated and at times combative with the nurses. She is noncompliant and uncooperative with her care. She keeps saying she just wants to go home. BP has been normal since stopping the Cornelius drip. No respiratory issues. SHe is currently on RA with normal O2 sats Exam Vital signs and Labs for Last 24 Hours: Temp Pulse Resp BP Pulse Ox 98.4 F 74 17 128/68 98 01/17/21 08:00 01/17/21 06:00 01/17/21 06:00 01/17/21 06:00 01/17/21 06:00 Laboratory Results - last 24 hr 01/16/21 16:36: Vancomycin Trough 9.1 I & O for Last 24 hours: Intake & Output 01/14/21 01/15/21 01/16/21 01/17/21 11:59 11:59 11:59 11:59 Intake Total 1121 / 1121 2961 / 2961 983 / 983 Output Total 2100 / 2100 1300 / 1300 550 / 550 Balance -979 / -979 1661 / 1661 433 / 433 Weight 131 lb 9 oz 144 lb 3 oz 147 lb 8 oz Microbiology Reports for the Last 24 Hours: Microbiology 01/14/21 22:00 Blood Blood Culture - Preliminary Gram Positive Cocci 01/14/21 12:55 Blood Blood Culture - Preliminary NO GROWTH AFTER 48 HOURS 01/14/21 17:10 Urine,Catheterized Urine Culture - Final Escherichia coli Narrative: No respiratory distress. Color is normal. Heart is regular. Breath sounds are clear anteriorly but diminished in the bases with bibasilar rales. No wheezes. Extremities no edema. Assessment and Plan (1) Rapid atrial fibrillation Status: Acute Category: Medical Code(s): I48.91 - Unspecified atrial fibrillation (2) HCAP (healthcare-associated pneumonia) Status: Acute Category: Medical Code(s): J18.9 - Pneumonia, unspecified organism (3) Urinary tract infection Status: Acute Category: Medical Code(s): N39.0 - Urinary tract infection, site not specified (4) Respiratory failure with hypoxia Status: Acute Qualifiers: Chronicity: acute Qualified Code(s): J96.01 - Acute respiratory failure with hypoxia Category: Medical Code(s): J96.91 - Respiratory failure, unspecified with hypoxia (5) Congestive heart failure Status: Acute Qualifiers: Heart failure type: unspecified Heart failure chronicity: acute Qualified Code(s): I50.9 - Heart failure, unspecified Category: Medical Code(s): I50.9 - Heart failure, unspecified (6) History of CVA with residual deficit Status: Chronic Category: Medical Code(s): I69.30 - Unspecified sequelae of cerebral infarction (7) LBBB (left bundle branch block) Status: Acute Category: Medical Code(s): I44.7 - Left bundle-branch block, unspecified (8) CAD (coronary artery disease) Status: Chronic Category: Medical Code(s): I25.10 - Atherosclerotic heart disease of [place] coronary artery without angina pectoris (9) HTN (hypertension) Status: Chronic Category: Medical Code(s): I10 - Essential (primary) hypertension (10) Hypothyroidism Status: Chronic Category: Medical Code(s): E03.9 - Hypothyroidism, unspecified (11) Pulmonary hypertension Status: Acute Category: Medical Code(s): I27.20 - Pulmonary hypertension, unspecified (12) Aortic stenosis Status: Acute Category: Medical Code(s): I35.0 - Nonrheumatic aortic (valve) stenosis - Assessment and plan all Dx Assessment and Plan for all problems:: Clinically improved. Hemodynamically stable. Chest x-ray shows little change in her pneumonia. Slight increase CHF. We will discontinue her IV fluids. Continue current antibiotics. Still awaiting final blood culture report.
--- NOTE | 2021-01-17 12:03 | PC.NURSE ---
Pt refused breakfast tray, she did drink some of her protein shake at lunch and about half a cup of water. Staff offered to get her something else from the cafeteria, pt pleasantly declined and stated nothing sounds good .
--- NOTE | 2021-01-17 16:34 | PC.NURSE ---
pt oriented only to self, she was uncooperative to care at beginning of shift, but has taken medications and allowed care t/o the rest of shift, systolic pressures 124-151, HR 66-78, remains on room air, no complaints of SOA or pain
[2021-01-18] VITALS (10 sets, daily range): BP systolic 115–132; BP diastolic 53–86; PULSE 48–88; RESP 15–24; TEMP 36.4–36.8; O2SAT 97–100
--- NOTE | 2021-01-18 08:12 | PC.NURSE ---
Late entry: At beginning of shift pt. able to state name, , year and place. As the shift progressed pt. became resistive to care and confused; alert to self. Still can state needs. no c/o n/v/d, soa, or dizziness. Pt. had one small loose bm, dark in color.
--- NOTE | 2021-01-18 08:30 | HMH.ACPN2 ---
<Luz Pham - Last Filed: 01/18/21 08:32> Internal Medicine - PN: Subj *Date: 01/18/21 *Time: 08:32 Interval history: Patient states that she is doing well this AM. She denies chest pain, shortness of breath, abdominal pain and nausea, Per nursing: She eats very poorly. She has poor p.o. fluid intake. She is more alert. Exam Vital signs and Labs for Last 24 Hours: Temp Pulse Resp BP Pulse Ox 98.0 F 70 24 115/71 98 01/18/21 04:00 01/18/21 05:00 01/18/21 04:00 01/18/21 04:00 01/18/21 04:00 I & O for Last 24 hours: Intake & Output 01/15/21 01/16/21 01/17/21 01/18/21 11:59 11:59 11:59 11:59 Intake Total 1121 / 1121 2961 / 2961 983 / 983 120 / 120 Output Total 2100 / 2100 1300 / 1300 550 / 550 730 / 730 Balance -979 / -979 1661 / 1661 433 / 433 -610 / -610 Weight 131 lb 9 oz 144 lb 3 oz 147 lb 8 oz Microbiology Reports for the Last 24 Hours: Microbiology 01/14/21 22:00 Blood Blood Culture - Preliminary Staphylococcus hominis - Constitutional no acute distress - *Routine Respiratory Exam Present: CTA bilaterally - *Routine Cardiovascular Exam Present: murmur, irregular rhythm - *Routine Abdominal Exam Present: soft, normoactive bowel sounds. Absent: tenderness, distended - *Routine Extremities Exam Absent: edema, calf tenderness - *Routine Neurological Exam Present: alert Speech is normal for her. She answers all questions appropriately. She smiles with answers. Assessment and Plan (1) Rapid atrial fibrillation Status: Acute Category: Medical Code(s): I48.91 - Unspecified atrial fibrillation (2) HCAP (healthcare-associated pneumonia) Status: Acute Category: Medical Code(s): J18.9 - Pneumonia, unspecified organism (3) Urinary tract infection Status: Acute Category: Medical Code(s): N39.0 - Urinary tract infection, site not specified (4) Respiratory failure with hypoxia Status: Acute Qualifiers: Chronicity: acute Qualified Code(s): J96.01 - Acute respiratory failure with hypoxia Category: Medical Code(s): J96.91 - Respiratory failure, unspecified with hypoxia (5) Congestive heart failure Status: Acute Qualifiers: Heart failure type: unspecified Heart failure chronicity: acute Qualified Code(s): I50.9 - Heart failure, unspecified Category: Medical Code(s): I50.9 - Heart failure, unspecified (6) History of CVA with residual deficit Status: Chronic Category: Medical Code(s): I69.30 - Unspecified sequelae of cerebral infarction (7) LBBB (left bundle branch block) Status: Acute Category: Medical Code(s): I44.7 - Left bundle-branch block, unspecified (8) CAD (coronary artery disease) Status: Chronic Category: Medical Code(s): I25.10 - Atherosclerotic heart disease of [place] coronary artery without angina pectoris (9) HTN (hypertension) Status: Chronic Category: Medical Code(s): I10 - Essential (primary) hypertension (10) Hypothyroidism Status: Chronic Category: Medical Code(s): E03.9 - Hypothyroidism, unspecified (11) Pulmonary hypertension Status: Acute Category: Medical Code(s): I27.20 - Pulmonary hypertension, unspecified (12) Aortic stenosis Status: Acute Category: Medical Code(s): I35.0 - Nonrheumatic aortic (valve) stenosis - Assessment and plan all Dx Assessment and Plan for all problems:: Continue with vancomycin and cefepime. <Juan Felipe - Last Filed: 01/18/21 17:48> Internal Medicine - PN: Subj *Date: 01/18/21 *Time: 17:47 Exam Vital signs and Labs for Last 24 Hours: Temp Pulse Resp BP Pulse Ox 98.2 F 71 16 119/53 L 97 01/18/21 15:20 01/18/21 16:55 01/18/21 15:20 01/18/21 15:20 01/18/21 15:20 I & O for Last 24 hours: Intake & Output 01/16/21 01/17/21 01/18/21 01/19/21 11:59 11:59 11:59 11:59 Intake Total 2961 / 2961 983 / 983 120 / 120 450 / 450 Output
--- NOTE | 2021-01-18 10:18 | HMH.ACPN ---
Internal Medicine - PN: Subj *Date: 01/18/21 *Time: 10:18 Exam Vital signs and Labs for Last 24 Hours: Temp Pulse Resp BP Pulse Ox 97.5 F L 65 15 131/64 98 01/18/21 08:00 01/18/21 08:53 01/18/21 08:00 01/18/21 08:00 01/18/21 08:00 I & O for Last 24 hours: Intake & Output 01/15/21 01/16/21 01/17/21 01/18/21 23:59 23:59 23:59 23:59 Intake Total 2741 / 2861 2324 / 2324 120 / 120 Output Total 1900 / 1900 1350 / 1350 500 / 500 230 / 230 Balance 841 / 961 974 / 974 -380 / -380 -230 / -230 Weight 60 kg 65.402 kg 66.905 kg Microbiology Reports for the Last 24 Hours: Microbiology 01/14/21 22:00 Blood Blood Culture - Preliminary Staphylococcus hominis Assessment and Plan (1) Rapid atrial fibrillation Status: Acute Category: Medical Code(s): I48.91 - Unspecified atrial fibrillation (2) HCAP (healthcare-associated pneumonia) Status: Acute Category: Medical Code(s): J18.9 - Pneumonia, unspecified organism (3) Urinary tract infection Status: Acute Category: Medical Code(s): N39.0 - Urinary tract infection, site not specified (4) Respiratory failure with hypoxia Status: Acute Qualifiers: Chronicity: acute Qualified Code(s): J96.01 - Acute respiratory failure with hypoxia Category: Medical Code(s): J96.91 - Respiratory failure, unspecified with hypoxia (5) Congestive heart failure Status: Acute Qualifiers: Heart failure type: unspecified Heart failure chronicity: acute Qualified Code(s): I50.9 - Heart failure, unspecified Category: Medical Code(s): I50.9 - Heart failure, unspecified (6) History of CVA with residual deficit Status: Chronic Category: Medical Code(s): I69.30 - Unspecified sequelae of cerebral infarction (7) LBBB (left bundle branch block) Status: Acute Category: Medical Code(s): I44.7 - Left bundle-branch block, unspecified (8) CAD (coronary artery disease) Status: Chronic Category: Medical Code(s): I25.10 - Atherosclerotic heart disease of [place] coronary artery without angina pectoris (9) HTN (hypertension) Status: Chronic Category: Medical Code(s): I10 - Essential (primary) hypertension (10) Hypothyroidism Status: Chronic Category: Medical Code(s): E03.9 - Hypothyroidism, unspecified (11) Pulmonary hypertension Status: Acute Category: Medical Code(s): I27.20 - Pulmonary hypertension, unspecified (12) Aortic stenosis Status: Acute Category: Medical Code(s): I35.0 - Nonrheumatic aortic (valve) stenosis The patient's infection will respond to the chosen ABx?: Yes Is the patient receiving the right drug, dose, and route?: Yes Could a more targeted ABx be ordered?: No
--- NOTE | 2021-01-18 10:39 | DIET.NUTRFU ---
Pt has refused most nourishment since 01/16 and has only had sips water, did eat 25% day of admission. Nursing efforts to encourage/cue have been unsuccessful. Attempted to provide diet edu/counseling to pt she continues to state I just dont feel like eating. She eventually stated she will try to consume her protein shakes, increased to TID on order. Please continue to assist and encourage/cue all meals. Mechanical soft diet given per diet at [facility]. Weight is up 12# from admission, 1+ non-pitting edema. Pt had a BM yesterday.
--- NOTE | 2021-01-18 13:00 | PC.NURSE ---
ATTEMPTED PICC ON THE LEFT SIDE; STUCK PATIENT 4 TIMES; USED BOTH ECOGENIC AND ANGIO. ACCESSED VEIN EACH TIME BUT UNABLE TO GET GUIDE WIRE TO ADVANCE ON ANY ATTEMPT. CALLED AND SPOKE WITH CARE MANAGEMENT TO LET THEM KNOW I WAS UNABLE TO GET THE PICC.
--- NOTE | 2021-01-18 16:28 | PC.NURSE ---
THIS NURSE WENT TO HANG PT IV ABX. WHEN CHECKING FOR PATENCY OF IV'S THEY WOULD NOT FLUSH OR DRAW BACK. PT WAS EDUCATED ON NEED FOR NEW IV BUT SHE REFUSED. DR ODOM'S OFFICE HAS BEEN CONTACTED BUT STILL AWAITING CALL BACK AT THIS TIME.
--- NOTE | 2021-01-18 17:46 | PC.NURSE ---
SPOKE WITH DR ODOM REGRADING INABILITY TO GAIN PERIPHERAL IV ACCESS. CENTRAL LINE ORDERED. CONTACTED DR VAZQUEZ WHO WILL PLACE LINE. CONSENT OBTAINED FROM [facility] VIA TELEPHONE VERIFIED WITH Alexander LEAHY RN
--- NOTE | 2021-01-18 18:29 | XR_ITS ---
PROCEDURE INFORMATION: Exam: XR Chest Exam date and time: 01/18/2021 6:29 PM Age: 85 years old Clinical indication: Device placement; Other: Check central line placement TECHNIQUE: Imaging protocol: XR of the chest. Views: 1 view. COMPARISON: CR XR CHEST PORTABLE 01/16/2021 9:14 AM FINDINGS: Tubes, catheters and devices: Right-sided central line present with the tip overlying the cavoatrial junction. Lungs: See Heart/Mediastinum finding. Pleural spaces: Unremarkable. No pleural effusion. No pneumothorax. Heart/Mediastinum: Cardiomediastinal silhouette and lung opacities similar to prior. Bones/joints: Unremarkable. IMPRESSION: 1. Right-sided central line present with the tip overlying the cavoatrial junction. 2. Cardiomediastinal silhouette and lung opacities similar to prior.
--- NOTE | 2021-01-18 18:36 | HMH.OPNOTE ---
Date of procedure: 01/18/21 Pre-op Diagnosis:: Need for reliable venous access Post-op Diagnosis:: Same Procedure performed:: Placement of 7 Slovak triple-lumen nontunneled catheter in right subclavian vein Surgeon:: Mike Burciaga MD Anesthesia: local Estimated blood loss (mL): 10 Operative findings:: Unable to place catheter in left subclavian vein Operative note:: Patient was positioned in Trendelenburg position. Left neck and chest were prepped and draped in the standard surgical fashion. Local anesthetic was infiltrated inferior to the left clavicle. 18-gauge needle was inserted in the deltopectoral groove. Patient was somewhat combative. Multiple passes were made without return of reliable venous access. After failed attempt and due to the fact that the patient had contaminated the field plan was made for placement on the right side. Patient was reprepped and draped in the standard surgical fashion. Local anesthetic was infiltrated inferior to the right clavicle near the deltopectoral groove. 18-gauge needle was inserted. A couple passes were made and the vein was cannulated. There was good return of venous flow. Guidewire was inserted. Small incision was made at the guidewire site. Subcutaneous tissues were dilated. 7 Slovak triple-lumen catheter was placed over the guidewire using Seldinger technique. It was secured to the skin at the 15 cm tru with silk suture. All ports aspirated and flushed without difficulty. Chest x-ray has been done. Central venous catheter will need to be removed in 7 days. Condition: stable Disposition: no change Complications:: None immediately apparent
[2021-01-18 21:43] LABS: Vancomycin,Peak 10.4 ug/ml (11-39)
[2021-01-19] VITALS: BP 117/55; PULSE 65; PULSE 70; RESP 17; TEMP 36.4; O2SAT 98
--- NOTE | 2021-01-19 03:21 | PC.NURSE ---
Patient is alert to name, date of and knows she is at [facility]. Central line was placed on previous shift on the right side; dressing is clean, dry and intact. Patient has left upper extremity edema noted, arm has been elevated through the shift. Patient has swatted at staff a couple of times and used profanity towards staff. Hagan catheter is draining. She is has a stage 2 ulcer on her coccyx that has a dressing applied and is clean, dry and intact. Her vital signs are stable, call light is within reach, will continue to monitor.
[2021-01-19 04:00] VITALS: BP 120/68; PULSE 60; PULSE 74; RESP 18; TEMP 36; O2SAT 97
[2021-01-19 06:00] VITALS: BMI 23.6
[2021-01-19 06:05] VITALS: TEMP 36
--- NOTE | 2021-01-19 06:05 | PC.NURSE ---
Patient continues to have warm blankets applied and wrapped up around her.
[2021-01-19 08:00] VITALS: BP 117/91; PULSE 58; PULSE 68; RESP 20; TEMP 36.6; O2SAT 99
[2021-01-19 08:26] VITALS: PULSE 68
--- NOTE | 2021-01-19 08:28 | HMH.ACPN2 ---
<Luz Pham - Last Filed: 01/19/21 08:28> Internal Medicine - PN: Subj *Date: 01/19/21 *Time: 08:28 Interval history: Patient had deep line placed last night per Dr. Burciaga for IV access. Nursing notes indicated that she was a little bit agitated with care during the night. This a.m. she is very cooperative and answers all questions. She denies shortness of breath, chest pain, abdominal pain, and nausea. She states she wants to go home to [facility]. She did eat a few bites of rice crispies and drank some milk but then did not want any further food. Exam Vital signs and Labs for Last 24 Hours: Temp Pulse Resp BP Pulse Ox 97.8 F 68 20 117/91 H 99 01/19/21 08:00 01/19/21 08:00 01/19/21 08:00 01/19/21 08:00 01/19/21 08:00 Laboratory Results - last 24 hr 01/18/21 21:00: Vancomycin Peak 10.4 L I & O for Last 24 hours: Intake & Output 01/16/21 01/17/21 01/18/21 01/19/21 11:59 11:59 11:59 11:59 Intake Total 2961 / 2961 983 / 983 120 / 120 800 / 800 Output Total 1300 / 1300 550 / 550 730 / 730 325 / 325 Balance 1661 / 1661 433 / 433 -610 / -610 475 / 475 Weight 144 lb 3 oz 147 lb 8 oz 138 lb 1 oz Microbiology Reports for the Last 24 Hours: Microbiology 01/14/21 22:00 Blood Blood Culture - Preliminary Staphylococcus hominis - Constitutional no acute distress Comments: Awakened for assessment - *Routine Respiratory Exam Present: crackles Comments: Few bibasilar crackles - *Routine Cardiovascular Exam Present: irregular rhythm - *Routine Abdominal Exam Present: soft, normoactive bowel sounds. Absent: tenderness, distended - *Routine Extremities Exam Absent: edema, calf tenderness - *Routine Neurological Exam Present: alert Assessment and Plan (1) Rapid atrial fibrillation Status: Acute Category: Medical Code(s): I48.91 - Unspecified atrial fibrillation (2) HCAP (healthcare-associated pneumonia) Status: Acute Category: Medical Code(s): J18.9 - Pneumonia, unspecified organism (3) Urinary tract infection Status: Acute Category: Medical Code(s): N39.0 - Urinary tract infection, site not specified (4) Respiratory failure with hypoxia Status: Acute Qualifiers: Chronicity: acute Qualified Code(s): J96.01 - Acute respiratory failure with hypoxia Category: Medical Code(s): J96.91 - Respiratory failure, unspecified with hypoxia (5) Congestive heart failure Status: Acute Qualifiers: Heart failure type: unspecified Heart failure chronicity: acute Qualified Code(s): I50.9 - Heart failure, unspecified Category: Medical Code(s): I50.9 - Heart failure, unspecified (6) History of CVA with residual deficit Status: Chronic Category: Medical Code(s): I69.30 - Unspecified sequelae of cerebral infarction (7) LBBB (left bundle branch block) Status: Acute Category: Medical Code(s): I44.7 - Left bundle-branch block, unspecified (8) CAD (coronary artery disease) Status: Chronic Category: Medical Code(s): I25.10 - Atherosclerotic heart disease of [place] coronary artery without angina pectoris (9) HTN (hypertension) Status: Chronic Category: Medical Code(s): I10 - Essential (primary) hypertension (10) Hypothyroidism Status: Chronic Category: Medical Code(s): E03.9 - Hypothyroidism, unspecified (11) Pulmonary hypertension Status: Acute Category: Medical Code(s): I27.20 - Pulmonary hypertension, unspecified (12) Aortic stenosis Status: Acute Category: Medical Code(s): I35.0 - Nonrheumatic aortic (valve) stenosis - Assessment and plan all Dx Assessment and Plan for all problems:: Patient will be discharged back to [facility] today. She will continue with IV antibiotics. See discharge summary. <Juan Felipe - Last Filed: 02/21/21 22:32> Internal Medicine - PN: Subj *Date: 01/19/21 *Time: 22:32 Navneet
--- NOTE | 2021-01-19 09:29 | HMH.DCSUM ---
General - General Admission date:: 01/14/21 <Juan Felipe - 02/21/21 22:48> 01/14/21 <PhamLuz scanlon - 01/19/21 10:06> Discharge date: 01/19/21 <Luz Pham - 01/19/21 10:06> HPI HPI: Ms. Helms is an 85-year-old female resident of [facility] who began having respiratory distress. An ambulance was called and she was transported to the emergency room. She reported to the ER physician that she felt cold but she denied any pain or difficulty breathing. She denied any chest pain or palpitations. She had been treated for suspected dehydration with IV fluids at the residential according to the ER physician. The patient's daughter arrived as she was being wheeled into the emergency department and stated that she was dying and indicated that they had accepted that. She stated she was going home and the ER could call her with any updates. The patient was evaluated and and noted to be a DNR. She was noted to be in atrial fibrillation with rapid ventricular response with a rate varying from 120 to 140 bpm. Her systolic blood pressure was only around 100. She had a chest x-ray showing bilateral pneumonia with mild CHF. Her initial troponin was normal with an elevated BUN but normal creatinine. Cardiology was consulted and Dr. Hook recommended an esmolol drip for rate control due to its short half-life. He felt she could be started on Cornelius-Synephrine as well for blood pressure support if needed. She was also started on IV antibiotics and DuoNebs for her pneumonia. Her BNP was elevated at 77,200. Her lactic acid was elevated as well. She had a chest CTA showing large bilateral effusions with severe left lower lobe collapse and severe volume loss in the right lower lobe. Her CT also suggested pulmonary arterial hypertension as well as bilateral groundglass infiltrates. She was admitted to stepdown for further evaluation and treatment. The patient was a poor historian and stated she hurt all over. She was unable to give any medical history. She was very confused and the ER nurses had difficulty placing her catheter and getting any other IV access. <Pham,Luz - 01/19/21 10:06> Hospital Course Hospital Course: .Patient was seen on admission by cardiology who noted atrial fib with rapid ventricular response likely due to Covid/pneumonia. Recommended esmolol drip for heart rate control due to short half-life, Increasing Xarelto to 15 mg daily for appropriate treatment of A. fib with creatinine clearance of 46, and to use Cornelius-Synephrine if needed to maintain systolic blood pressure greater than 90. DNR status was noted. Due to her heart failure and pleural effusions sepsis fluid challenge was deferred. She was started on the esmolol drip and Cornelius-Synephrine. She was also started on vancomycin and cefepime as well as DuoNeb's. Initially patient was very agitated with any exam/treatment and resistant to care. She indicated that she hurt all over. Covid test was noted to be negative.. She was hypotensive and continued on a Cornelius-Synephrine drip. She was noted not to eat very well. Patient tolerated a low-dose beta-victorino and was also started on dig due to her atrial fibrillation. On 01/15/2021 esmolol drip and Cornelius-Synephrine drip had been Discontinued due to adequate heart rate control and blood pressure but NeoSynephrine did have to be restarted due to hypotension. Eventually heart rate was controlled on dig and metoprolol. She again was weaned from Cornelius-Synephrine drip on 01/16/2021. Urine culture grew E. coli And blood culture was growing a staph species 01/17 patient's blood pressure remained stable and she was noted to be hemodynamically stable. Chest x-ray repeat showed little change in her pneumonia with slight increase in CHF. IV fluids were discontinued. On 01/18 patient stated she was doing very well. She denied chest pain, shortness of breath, abdominal pain and nausea. She continued to eat and drink ve
== END 2021-01-19 11:55 | DRG 871 ==
LOC: ER 15:15 → 2ND 17:15
PROVIDERS: Admitting Provider Family Medicine; Emergency Provider Emergency Medicine; Visit Provider Family Medicine
DX: A41.9 Sepsis, unspecified organism (principal); J18.9 Pneumonia, unspecified organism; J96.01 Acute respiratory failure with hypoxia; J44.0 Chronic obstructive pulmonary disease with (acute) lower respiratory infection; I11.0 Hypertensive heart disease with heart failure; I50.9 Heart failure, unspecified; I69.30 Unspecified sequelae of cerebral infarction; Z20.822 Contact with and (suspected) exposure to COVID-19; I25.2 Old myocardial infarction; E78.5 Hyperlipidemia, unspecified; Z66 Do not resuscitate; Z86.718 Personal history of other venous thrombosis and embolism; Y95 Nosocomial condition; I48.91 Unspecified atrial fibrillation; I35.0 Nonrheumatic aortic (valve) stenosis; I27.20 Pulmonary hypertension, unspecified; I25.10 Atherosclerotic heart disease of native coronary artery without angina pectoris; E03.9 Hypothyroidism, unspecified
CPT/HCPCS: 36556; 36415; 71045; 71275; 80048; 80053; 80202; 81001; 83605; 83880; 84443; 84484; 85025; 87040; 87077; 87086; 87088; 87186; 93005; 94760; 96365; 99285; C1751; J1956; J3370; Q9967; U0003

== ENCOUNTER → 2021-01-19 19:37 | Outpatient (REF) | payer MEDICARE, MEDICAID, SELFPAY ==
[2021-01-19 20:05] LABS: Vancomycin,Trough 12.8 ug/mL (5.0-10.0)
[2021-01-19 20:31] LABS: Chloride 114 mmol/L (98-107); Sodium 137 mmol/L (136-145)
[2021-01-19 20:34] LABS: Blood Urea Nitrogen 14 mg/dl (7-17); Estimated Glomerular Filt Rate 117 ml/min (>60); GFR (African American) 142 ML/MIN (>60)
[2021-01-19 20:35] LABS: Calcium 7.5 mg/dl (8.4-10.2); Carbon Dioxide 17 mmol/L (22.0-30.0); Glucose 95 mg/dl (74-100)
== END ==
LOC: LAB 19:37
PROVIDERS: Visit Provider Family Medicine
DX: Z51.81 Encounter for therapeutic drug level monitoring; J18.9 Pneumonia, unspecified organism
CPT/HCPCS: 80048; 80202